=== PATIENT | female | born 1975 | race Caucasian/White ===

== ENCOUNTER → 2016-06-18 | Outpatient (CLI) | payer MEDICAID | LOC: LABWHC1 09:42 | PROVIDERS: ATTEND Internal Medicine Endocrinology, Diabetes & Metabolism | DX: R53.83 Other fatigue (principal); E55.9 Vitamin D deficiency, unspecified | CPT/HCPCS: 36415; 82306; 82607 ==

== ENCOUNTER → 2016-07-13 | Outpatient (CLI) | payer MEDICAID ==
--- NOTE | 2016-07-13 21:57 | PN ---
Bee is coming in for a follow-up regarding her obstructive sleep apnea. As mentioned earlier, the patient was diagnosed earlier having mild ARJUN with an AHI of 10.5. We opted not to treat the patient and we asked her to lose weight. She has successfully lost some weight and she is down by approximately 10 pounds. Nevertheless, despite that, she is still feeling tired and sleepy during the day and she is interested in trialing CPAP therapy should her symptoms related to obstructive sleep apnea. Temperature 98.5. Pulse is 82, respirations 16, body weight 217 with a body mass index of 37.2, saturation 97% on room air, and blood pressure 112/68. GENERAL APPEARANCE: Calm, comfortable. HEENT: Short neck, crowding posterior pharynx. There is no goiter, neck masses. LUNGS: Clear to auscultation. HEART: Sounds are regular rate and rhythm. Normal S1, S2. No S3, no S4 no murmurs. ABDOMEN: Soft, nontender. No organomegaly. EXTREMITIES: No cyanosis, or clubbing. IMPRESSION: 1. Mild obstructive sleep apnea with an AHI of 10.5. 2. Obesity. 3. Chronic fatigue and sleepiness. PLAN: 1. Encourage further weight loss. 2. CPAP titration and this will be followed up by trial of CPAP therapy and treatment will be continued if the patient sees significant clinical response.
== END | disposition home or self-care (01) ==
LOC: SLEEP 13:15
PROVIDERS: ATTEND Internal Medicine Critical Care Medicine
DX: G47.33 Obstructive sleep apnea (adult) (pediatric) (principal); E66.9 Obesity, unspecified; Z68.37 Body mass index [BMI] 37.0-37.9, adult

== ENCOUNTER → 2016-09-28 | Outpatient (CLI) | payer MEDICAID ==
--- NOTE | 2016-09-29 09:45 | SLS ---
41-year-old female patient diagnosed as having mild obstructive sleep apnea. Today she is coming in for a compliancy check. The patient has an AHF of 10.5. She was given CPAP therapy of 7 cm of water. She is benefiting from the treatment. Her sleep quality has improved and she is awake and much more alert , awake and refreshed during the day. She is not taking any naps during the day. Based on the compliance data, the patient has been averaging around 5.5 hours of sleep apnea per night. No leaks around the mask and her HI is down to 2.2. CPAP use for more than 4 hours is 29/30. She claims that later on during the night she is feeling that the pressure that is delivered to the CPAP machine is suboptimal and low and she is feeling a bit suffocated. She was requesting the pressure to be increased. BP is 107/63, pulse 84, respirations 16, temperature 97.9, weight is 209, saturation is 97% on room air. GENERAL APPEARANCE: Calm, comfortable. HEENT: Negative for JVD. No goiter, neck mass. LUNGS: Clear to auscultation. HEART: Heart sounds regular rate and rhythm. Normal S1/S2. There are no murmurs. ABDOMEN: Soft, nontender. No organomegaly. EXTREMITIES: No edema, cyanosis or clubbing. IMPRESSION: 1. Obstructive sleep apnea, symptomatic. The HI is 10.5. 2. Obesity. 3. Chronic fatigue and sleepiness, improved with CPAP therapy. PLAN: 1. Based on the low pressure feeling, I suggested to change this patient to an O2 sat CPAP with a maximum pressure of 10 and minimum pressure of 4. 2. Continue the small size ( ) pillows. 3. See me back in six months time for follow up. Treatment is successful for now. SYDNEE
== END ==
LOC: SLEEP 16:14
PROVIDERS: ATTEND Internal Medicine Critical Care Medicine
DX: G47.33 Obstructive sleep apnea (adult) (pediatric) (principal); E66.9 Obesity, unspecified; R53.82 Chronic fatigue, unspecified

== ENCOUNTER 2016-10-11 10:10 | Day surgery (SDC) | payer MEDICAID ==
[2016-10-07 14:21] VITALS: BMI 35.2
[~2016-10-11 10:10] MED LIST: LACTATED RINGERS 1,000 ML IV SCH; LIDOCAINE 1% 20 ML VIAL (10MG/ML) FOR IV START INTRADERMA PRN
[2016-10-11 10:50] VITALS: TEMP 98.4
[2016-10-11] MEDS ORDERED: LIDOCAINE 1% INJ 10MG/ML (20 ML MDV) ONE (11:19)
[2016-10-11] MEDS ORDERED: PROPOFOL 10 MG/ML 20 ML VIAL IV ONE (11:19)
--- NOTE | 2016-10-11 11:50 | P.PCN ---
Date of Procedure: 10/11/16 Preoperative Diagnosis: Postoperative Diagnosis: Procedure(s) Performed: Procedure: Total colonoscopy. Preoperative diagnosis: Screening for neoplasia, patient has family history of colon cancer in her father. Postoperative diagnosis: Exam within normal limits. Preparation: HalfLytely prep. Sedation: Was provided by anesthesia. Brief clinical history: The patient is a 41-year-old female who is referred for this evaluation for screening for neoplasia age being his risk factor as well as family history of colon cancer in her father. The patient has no abdominal complaints, bleeding or anemia. This would be her first colonoscopy. Procedure: With the patient on her left lateral decubitus position and after informed consent and adequate sedation, the perianal area was inspected and it did not show any fissures or fistulas. There were no masses felt on digital rectal examination. The Olympus CFQ 160L video colonoscope was then inserted in the rectum in the usual fashion and advanced to the cecum. The mucosa appeared healthy. No abnormalities were seen including any polyps or diverticular disease. I retroflexed the endoscope in the rectum before the endoscope was withdrawn. The patient tolerated the procedure well. Plan: The patient was reassured. With her family history, I recommended repeat exam in 5 years. She will follow up with you as planned. Implants: Indications for Procedure: Operative Findings: Description of Procedure:
[2016-10-11 12:10] VITALS: BP 111/67; PULSE 71; RESP 16
== END 2016-10-11 12:45 | disposition home or self-care (01) ==
LOC: ORWHC2ENDO 10:10
DX: Z12.11 Encounter for screening for malignant neoplasm of colon (principal); Z80.0 Family history of malignant neoplasm of digestive organs; J45.909 Unspecified asthma, uncomplicated; G47.33 Obstructive sleep apnea (adult) (pediatric); Z88.6 Allergy status to analgesic agent; Z88.1 Allergy status to other antibiotic agents; Z79.51 Long term (current) use of inhaled steroids; Z79.899 Other long term (current) drug therapy
CPT/HCPCS: J2001; J2704; G0105

== ENCOUNTER → 2017-03-04 | Outpatient (CLI) | payer MEDICAID ==
[2017-03-04 09:00] LABS: HGB 13.4 gm/dL (11.4-16.0); MCH 30.3 pg (25.0-35.0); MCHC 31.8 g/dL (31.0-37.0); MCV 95.2 fL (80.0-100.0); Mean Platelet Volume 7.9; Platelet Count 197 k/uL (150-450); RBC 4.42 m/uL (3.80-5.40); RDW 13.4 % (11.5-15.5); WBC 4.9 k/uL (3.8-10.6)
[2017-03-04 09:28] LABS: ALT 29 U/L (9-52); AST 20 U/L (14-36); Albumin 3.9 g/dL (3.5-5.0); Alkaline Phosphatase 65 U/L (38-126); Anion Gap 7 mmol/L; Blood Urea Nitrogen 18 mg/dL (7-17); Calcium 9.2 mg/dL (8.4-10.2); Carbon Dioxide 26 mmol/L (22-30); Chloride 107 mmol/L (98-107); Cholesterol 151 mg/dL (<200); Glucose 93 mg/dL (74-99); HDL Cholesterol 69 mg/dL (40-60); LDL Cholesterol,Calculated 70 mg/dL (0-99); Magnesium 2.1 mg/dL (1.6-2.3); Potassium 5.1 mmol/L (3.5-5.1); Sodium 140 mmol/L (137-145); Total Bilirubin 0.3 mg/dL (0.2-1.3); Total Protein 6.4 g/dL (6.3-8.2); Triglycerides 59 mg/dL (<150)
[2017-03-04 09:35] LABS: T4, Free (Free Thyroxine) 0.81 ng/dL (0.78-2.19)
[2017-03-05 12:49] LABS: HLA B27 NEGATIVE
== END | disposition home or self-care (01) ==
LOC: LABWHC1 08:17
PROVIDERS: ATTEND Family Medicine
DX: R53.83 Other fatigue (principal); R63.5 Abnormal weight gain
CPT/HCPCS: 36415; 80053; 80061; 83001; 83002; 83735; 84439; 84443; 85027; 86812

== ENCOUNTER → 2017-04-06 | Outpatient (CLI) | payer MEDICAID ==
--- NOTE | 2017-04-07 11:31 | ECHOF ---
Referral Reason:Dyspnea on exertion R06.09, Fatigue R53.83 MEASUREMENTS -------- HEIGHT: 162.6 cm WEIGHT: 98.9 kg BP: 133/80 RVIDd: 3.0 cm (< 3.3) IVSd: 0.9 cm (0.6 - 1.1) LVIDd: 4.8 cm (3.9 - 5.3) LVPWd: 0.9 cm (0.6 - 1.1) IVSs: 1.3 cm LVIDs: 3.0 cm LVPWs: 1.4 cm LAESV Index (A-L): 25.46 ml/m Ao Diam: 2.6 cm (2.0 - 3.7) AV Cusp: 1.6 cm (1.5 - 2.6) LA Diam: 3.4 cm (2.7 - 3.8) MV EXCURSION: 15.293 mm (> 18.000) MV EF SLOPE: 98 mm/s (70 - 150) EPSS: 0.4 cm MV E Juan Miguel: 1.06 m/s MV DecT: 217 ms MV A Juan Miguel: 0.79 m/s MV E/A Ratio: 1.33 AV maxP.16 mmHg AV meanP.43 mmHg RAP: 5.00 mmHg RVSP: 17.49 mmHg FINDINGS -------- Sinus rhythm. This was a technically good study. The left ventricular size is normal. Left ventricular wall thickness is normal. Overall left vent ricular systolic function is normal with, an EF between 55 - 60 %. The right ventricle is normal in size and function. Normal LA size by volume 22+/-6 ml/m2. The right atrium is normal in size. The aortic valve is trileaflet, and appears structurally normal. No aortic stenosis or regurgitation. The mitral valve is normal. There is trace to mild mitral regurgitation. Trace tricuspid regurgitation present. Right ventricular systolic pressure is normal at < 35 mmHg. There is no evidence of pulmonary hypertension. Trace/mild (physiologic) pulmonic regurgitation. The aortic root size is normal. Normal inferior vena cava with normal inspiratory collapse consistent with estimated right atrial pre ssure of 5 mmHg. There is no pericardial effusion. CONCLUSIONS -------- 1. Sinus rhythm. 2. This was a technically good study. 3. The left ventricular size is normal. 4. Left ventricular wall thickness is normal. 5. Overall left ventricular systolic function is normal with, an EF between 55 - 60 %. 6. Normal LA size by volume 22+/-6 ml/m2. 7. The aortic valve is trileaflet, and appears structurally normal. No aortic stenosis or regurgitati on. 8. There is trace to mild mitral regurgitation. 9. Trace tricuspid regurgitation present. 10. Right ventricular systolic pressure is normal at < 35 mmHg. 11. Trace/mild (physiologic) pulmonic regurgitation. 12. The aortic root size is normal. 13. There is no pericardial effusion. DIRECTOR OF STRATEGIC MARKETING: Raf Fuentes RDCS
== END | disposition home or self-care (01) ==
LOC: RADECHMAIN 14:56
PROVIDERS: ATTEND Family Medicine
DX: R06.09 Other forms of dyspnea (principal); R53.83 Other fatigue
CPT/HCPCS: 93306

== ENCOUNTER 2017-07-26 14:36 | Observation (INO) | payer MEDICAID ==
[2017-07-26] MEDS ORDERED: SODIUM CHLORIDE 0.9% 1,000 ML IV STA (15:23)
[2017-07-26] MEDS ORDERED: ONDANSETRON 4 MG/2 ML VIAL IVP STA (15:23)
[2017-07-26] MEDS ORDERED: MECLIZINE 12.5 MG TAB PO STA (15:24)
--- NOTE | 2017-07-26 15:27 | ED ---
Dizziness HPI - General Chief Complaint: Dizziness Stated Complaint: Dizzy Time Seen by Provider: 07/26/17 15:18 Source: patient, RN notes reviewed Mode of arrival: wheelchair Limitations: no limitations - History of Present Illness Initial Comments: This is a 42-year-old female with a prior history of vertigo in the past who states she had the onset around 1 PM today after eating lunch of dizziness was profound about an hour later she started developing nausea and vomiting. She's had several episodes of this. She states with any type of movement she gets very dizzy. She has a headache loss of function to her upper or lower extremities fevers chills sweats or other symptoms. She does state that she has had this in the past and that the Lissy maneuver help control of her she was so dizzy at this time she could not do it. No recent illnesses no other modifying factors at this time. She denied any palpitations MD Complaint: dizziness - Related Data Home Medications Medication Instructions Recorded Confirmed Citalopram Hydrobromide [CeleXA] 40 mg PO DAILY 10/07/16 07/26/17 Multivitamins, Thera [Multivitamin 1 tab PO DAILY 10/07/16 07/26/17 (formulary)] Ergocalciferol [Vitamin D2] 50,000 unit PO CASTILLO 07/26/17 07/26/17 Phentermine HCl [Adipex-P] 37.5 mg PO QAM 07/26/17 07/26/17 Allergies Allergy/AdvReac Type Severity Reaction Status Date / Time clarithromycin [From Biaxin] Allergy Anaphylaxis Verified 07/26/17 16:15 diphenhydramine Allergy Rash/Hives Verified 07/26/17 16:15 [From Tylenol PM] minocycline Allergy Rash/Hives Verified 07/26/17 16:15 Review of Systems ROS Statement: Those systems with pertinent positive or pertinent negative responses have been documented in the HPI. ROS Other: All systems not noted in ROS Statement are negative. Past Medical History Past Medical History: Asthma, Sleep Apnea/CPAP/BIPAP Additional Past Medical History / Comment(s): FAMILY HX COLON CA. USES CPAP, 4- 10. History of Any Multi-Drug Resistant Organisms: None Reported Past Surgical History: Section, Cholecystectomy, Hysterectomy, Orthopedic Surgery, Tubal Ligation Additional Past Surgical History / Comment(s): LASIK. EXC IMPACTED WISDOM TEETH. RT WRIST GANGLION CYST EXC. RODRIGUEZ KNEE SURG, LT WAS A SCOPE. skin biopsies, fibromas removed from leg and arm Past Anesthesia/Blood Transfusion Reactions: Previous Problems w/ Anesthesia, Family History of Problems w/ Anesthesia, Motion Sickness Additional Past Anesthesia/Blood Transfusion Reaction / Comment(s): "HARD TO AROUSE FROM ANESTHESIA;" FAMILY HX OF SAME. Past Psychological History: Anxiety Smoking Status: Never smoker Past Alcohol Use History: None Reported Past Drug Use History: None Reported - Past Family History Father Family Medical History: Cancer Mother Family Medical History: Cancer General Exam - General Exam Comments Initial Comments: This is a well-developed well-nourished awake alert oriented 3 female Limitations: no limitations General appearance: alert, anxious Head exam: Present: atraumatic, normocephalic, normal inspection Eye exam: Present: normal appearance, PERRL, EOMI. Absent: scleral icterus, conjunctival injection, periorbital swelling ENT exam: Present: normal exam, mucous membranes moist Neck exam: Present: normal inspection. Absent: tenderness, meningismus, lymphadenopathy Respiratory exam: Present: normal lung sounds bilaterally. Absent: respiratory distress, wheezes, rales, rhonchi, stridor Cardiovascular Exam: Present: regular rate, normal rhythm, normal heart sounds. Absent: systolic murmur, diastolic murmur, rubs, gallop, clicks GI/Abdominal exam: Present: soft, normal bowel sounds. Absent: distended, tenderness, guarding, rebound, rigid Extremities exam: Present: normal inspection, full ROM, normal capillary refill. Absent: tenderness, pedal edema, joint swelling, calf tenderness Back exam: Present: normal inspection Neurological exam: Present: alert, oriented X3, CN II-XII intact Psychiatric exam: Present: normal affect, normal mood Skin exam: Present: warm, dry, intact, normal color. Absent: rash Course Vital Signs 07/26/17 07/26/17 14:59 16:58 Temperature 97.5 F L Pulse Rate 79 74 Respiratory 18 18 Rate Blood Pressure 120/78 116/67 O2 Sat by Pulse 97 100 Oximetry - Reevaluation(s) Reevaluation #1: 07/26/17 17:51 The patient is so profoundly dizzy medication. Patient will get a different medication CAT scan has been ordered. Reevaluation #2: 07/26/17 18:45 The patient is a very dizzy in spite of medications. She'll be admitted with ENT consultation by her ENT doctor Dr. Monique EKG Findings - EKG Results: EKG: interpreted by KB, sinus rhythm (Sinus rhythm rate 72 IN interval 132 QRS duration 84 QT since QTC of 460/455 low-voltage noted no acute ST-T wave changes) Medical Decision Making - Medical Decision Making Patient presents with intractable nausea vomiting/vertigo she'll be admitted with ENT consultation I discuss case with Dr. Gtz - Lab Data Result diagrams: 07/26/17 15:45 07/26/17 15:45 Lab Results 07/26/17 07/26/17 Range/Units 15:45 15:45 WBC 8.2 (3.8-10.6) k/uL RBC 4.68 (3.80-5.40) m/uL Hgb 14.5 (11.4-16.0) gm/dL Hct 43.2 (34.0-46.0) % MCV 92.5 (80.0-100.0) fL MCH 31.0 (25.0-35.0) pg MCHC 33.5 (31.0-37.0) g/dL RDW 12.7 (11.5-15.5) % Plt Count 222 (150-450) k/uL Neutrophils % 78 % Lymphocytes % 14 % Monocytes % 4 % Eosinophils % 2 % Basophils % 0 % Neutrophils # 6.4 (1.3-7.7) k/uL Lymphocytes # 1.2 (1.0-4.8) k/uL Monocytes # 0.3 (0-1.0) k/uL Eosinophils # 0.2 (0-0.7) k/uL Basophils # 0.0 (0-0.2) k/uL Sodium 139 (137-145) mmol/L Potassium 4.3 (3.5-5.1) mmol/L Chloride 104 (98-107) mmol/L Carbon Dioxide 23 (22-30) mmol/L Anion Gap 12 mmol/L BUN 17 (7-17) mg/dL Creatinine 0.68 (0.52-1.04) mg/dL Est GFR (CKD-EPI)AfAm >90 (>60 ml/min/1.73 sqM) Est GFR (CKD-EPI)NonAf >90 (>60 ml/min/1.73 sqM) Glucose 126 H (74-99) mg/dL Calcium 9.2 (8.4-10.2) mg/dL Magnesium 2.0 (1.6-2.3) mg/dL Total Bilirubin 0.4 (0.2-1.3) mg/dL AST 25 (14-36) U/L ALT 28 (9-52) U/L Alkaline Phosphatase 60 (38-126) U/L Total Protein 6.7 (6.3-8.2) g/dL Albumin 4.1 (3.5-5.0) g/dL - Radiology Data Radiology results: report reviewed (I did review the imaging and reports no acute findings.), image reviewed Disposition Clinical Impression: Vertigo, Nausea & vomiting Disposition: ADMITTED IP TO THIS HOSP Condition: Stable Referrals: Kimberly Valladares MD [Primary Care Provider] - 1-2 days
[2017-07-26] MEDS: SODIUM CHLORIDE 0.9% 1,000 ML IV STA ×2 (15:44→19:36)
[2017-07-26 16:01] LABS: Basophils % (A) 0 %; Eosinophils # (A) 0.2 k/uL (0-0.7); Eosinophils % (A) 2 %; HCT 43.2 % (34.0-46.0); HGB 14.5 gm/dL (11.4-16.0); Lymphocytes # (A) 1.2 k/uL (1.0-4.8); Lymphocytes % (A) 14 %; MCHC 33.5 g/dL (31.0-37.0); MCV 92.5 fL (80.0-100.0); Mean Platelet Volume 7.4; Monocytes # (A) 0.3 k/uL (0-1.0); Monocytes % (A) 4 %; Neutrophils # (A) 6.4 k/uL (1.3-7.7); Neutrophils % (A) 78 %; Platelet Count 222 k/uL (150-450); RBC 4.68 m/uL (3.80-5.40); RDW 12.7 % (11.5-15.5); WBC 8.2 k/uL (3.8-10.6)
[2017-07-26 16:14] LABS: ALT 28 U/L (9-52); AST 25 U/L (14-36); Albumin 4.1 g/dL (3.5-5.0); Alkaline Phosphatase 60 U/L (38-126); Anion Gap 12 mmol/L; Blood Urea Nitrogen 17 mg/dL (7-17); Calcium 9.2 mg/dL (8.4-10.2); Carbon Dioxide 23 mmol/L (22-30); Chloride 104 mmol/L (98-107); Glucose 126 mg/dL (74-99); Potassium 4.3 mmol/L (3.5-5.1); Sodium 139 mmol/L (137-145); Total Bilirubin 0.4 mg/dL (0.2-1.3); Total Protein 6.7 g/dL (6.3-8.2)
[2017-07-26] MEDS ORDERED: methylPREDNISolone SOD SUCCI 125 MG/2 ML VIAL IV STA (17:20)
[2017-07-26] MEDS ORDERED: LORazepam 2 MG/ML INJ IV STA (17:20)
--- NOTE | 2017-07-26 17:52 | CT ---
EXAMINATION TYPE: CT brain wo con DATE OF EXAM: 07/26/2017 COMPARISON: NONE INDICATION: Dizziness today. DLP: 862.5 mGycm, Automated exposure control for dose reduction was used. CONTRAST: None CT of the brain is performed utilizing 3 mm thick sections through the posterior fossa and 3 mm thick sections through the remaining calvarium. Study is performed within 24 hours of arrival to the hosp [facility]. No abnormal hyperdensity is present to suggest an acute intracranial hemorrhage. No mass lesion is evident. No acute infarcts are evident. Ventricles and sulci are appropriate for the patient age. Paranasal sinuses and mastoid air cells within the [id number] are clear. Hyperostosis frontalis internus is present, normal variant. Note is made a left septal deviation. IMPRESSIONS: 1. No acute intracranial process.
[2017-07-26] MEDS ORDERED: NALOXONE 0.4 MG/ML 1 ML VIAL IV PRN (18:46)
[2017-07-26] MEDS ORDERED: ONDANSETRON 4 MG/2 ML VIAL IVP PRN (18:46)
[2017-07-26] MEDS ORDERED: DIAZEPAM 5 MG TAB PO PRN (19:13)
[2017-07-26] MEDS ORDERED: DIAZEPAM 5 MG TAB PO STA (19:13)
--- NOTE | 2017-07-26 19:54 | P.HPIM ---
History of Present Illness H&P Date: 07/26/17 Chief Complaint: Dizziness and nausea and vomiting The patient is a 42-year-old female with a past medical history of vertigo, moderate to severe hearing loss, hypovitaminosis D currently on supplementation who presents to the ER with complaint of severe dizziness and room spinning that began abruptly at approximately 1 PM, the patient also reports associated intractable nausea and vomiting with difficulty ambulating speak due to the severe dizziness, which she describes as room spinning which appears to be worse on the left versus the right. She denies any precipitating symptoms, she denies any headache, she reports blurry vision. The patient has a history of vertigo that flares up very sporadically may be twice a year. She denied any focal weakness slurred speech or facial droop, but has reported incidences with difficulty finding appropriate words. She denies any fall or head trauma or recent illnesses. She reports a history of moderate to severe hearing loss and was recently fitted for hearing aid in May of this year. She reported drawing labs earlier this morning from Dr. Gambino. In the ER she was given Ativan and started on meclizine, CT ordered of the head was negative for any acute intracranial abnormality. Her admission labs were largely normal and she was recommended for observation due to intractable nausea vomiting Review of Systems All other 12 point review of systems negative except per HPI Past Medical History Past Medical History: Asthma, Sleep Apnea/CPAP/BIPAP Additional Past Medical History / Comment(s): FAMILY HX COLON CA. USES CPAP, 4- 10. History of Any Multi-Drug Resistant Organisms: None Reported Past Surgical History: Section, Cholecystectomy, Hysterectomy, Orthopedic Surgery, Tubal Ligation Additional Past Surgical History / Comment(s): LASIK. EXC IMPACTED WISDOM TEETH. RT WRIST GANGLION CYST EXC. RODRIGUEZ KNEE SURG, LT WAS A SCOPE. skin biopsies, fibromas removed from leg and arm Past Anesthesia/Blood Transfusion Reactions: Previous Problems w/ Anesthesia, Family History of Problems w/ Anesthesia, Motion Sickness Additional Past Anesthesia/Blood Transfusion Reaction / Comment(s): "HARD TO AROUSE FROM ANESTHESIA;" FAMILY HX OF SAME. Past Psychological History: Anxiety Smoking Status: Never smoker Past Alcohol Use History: None Reported Past Drug Use History: None Reported - Past Family History Father Family Medical History: Cancer Mother Family Medical History: Cancer Medications and Allergies Home Medications Medication Instructions Recorded Confirmed Type Citalopram Hydrobromide [CeleXA] 40 mg PO DAILY 10/07/16 07/26/17 History Multivitamins, Thera [Multivitamin 1 tab PO DAILY 10/07/16 07/26/17 History (formulary)] Ergocalciferol [Vitamin D2] 50,000 unit PO CASTILLO 07/26/17 07/26/17 History Phentermine HCl [Adipex-P] 37.5 mg PO QAM 07/26/17 07/26/17 History Allergies Allergy/AdvReac Type Severity Reaction Status Date / Time clarithromycin [From Biaxin] Allergy Anaphylaxis Verified 07/26/17 16:15 diphenhydramine Allergy Rash/Hives Verified 07/26/17 16:15 [From Tylenol PM] minocycline Allergy Rash/Hives Verified 07/26/17 16:15 Physical Exam Vitals: Vital Signs Temp Pulse Resp BP Pulse Ox 07/26/17 18:59 97.8 F 83 18 112/65 99 07/26/17 16:58 74 18 116/67 100 07/26/17 14:59 97.5 F L 79 18 120/78 97 Intake and Output 07/26/17 07/26/17 07/26/17 06:59 14:59 22:59 Other: Weight 98.43 kg Constitutional: No acute distress, conversant, pleasant Eyes: Anicteric sclerae, moist conjunctiva, no lid-lag, PERRLA ENMT: NC/AT,Oropharynx clear, no erythema, exudates Neck:Supple, FROM, no masses, or JVD, No carotid bruits; No thyromegaly Lungs: Clear to auscultation, Clear to percussion, Normal respiratory effort, no accessory muscle use Cardiovascular: Heart regular in rate and rhythm, No murmurs, gallops, or rubs no peripheral edema Abdominal: Soft Nontender, nom distended, no guarding, no rebound or rigidity, Normoactive bowel sounds No hepatomegaly, No splenomegaly, No palpable mass No abdominal wall hernia noted Skin: Normal temperature, tone, texture, turgor, No induration No subcutaneous nodules, No rash, lesions, No ulcers Extremities:No digital cyanosis No clubbing, Pedal pulses intact and symmetrical Radial pulses intact and symmetrical Normal gait and station, No calf tenderness Psychiatric: Alert and oriented to person, place and time, Appropriate affect Intact judgement Neuro: Muscles Strength 5/5 in all 4 extremities, Sensation to light touch grossly present throughout, Cranial nerves II-XII grossly intact. No focal sensory deficits, positive tilt table test on the left, with horizontal nystagmus Results CBC & Chem 7: 07/26/17 15:45 07/26/17 15:45 Labs: Abnormal Lab Results - Last 24 Hours (Table) 07/26/17 Range/Units 15:45 Glucose 126 H (74-99) mg/dL Assessment and Plan Assessment: Chronic medical conditions Vitamin D deficiency Headaches Moderate to severe hearing loss (1) Intractable nausea and vomiting Current Visit: Yes Status: Acute Code(s): R11.2 - NAUSEA WITH VOMITING, UNSPECIFIED SNOMED Code(s): 707609129 (2) Vertigo Current Visit: Yes Status: Acute Code(s): R42 - DIZZINESS AND GIDDINESS SNOMED Code(s): 510610368 Plan: The patient is placed on observation, anticipate a less than 2 midnight stay with vertigo after presenting with intractable nausea vomiting. CT of the head was negative for any acute intracranial pathology, her electrolyte panel is only remarkable for hyperglycemia however the patient was not fasting, she has no history of diabetes. ENT was consulted and the patient was started on meclizine I will add diazepam and follow-up with any further recommendations by ENT. We'll initiate antiemetics for symptomatic management of her nausea as needed, Dr. Gtz will continue to follow her clinical course
[2017-07-26 19:56] VITALS: BMI 36.6
[2017-07-26 20:46] LABS: Appearance,Urine Clear (Clear); Bilirubin,Urine Negative (Negative); Blood,Urine Negative (Negative); Color,Urine Yellow; Glucose,Urine (UA) Negative (Negative); Ketones,Urine Trace (Negative); Leukocyte Esterase,Urine Negative (Negative); Nitrite,Urine Negative (Negative); PH, Urine 6.5 (5.0-8.0); Protein,Urine Negative (Negative); Specific Gravity,Urine 1.013 (1.001-1.035); Urobilinogen,Urine <2.0 mg/dL (<2.0)
[2017-07-27] MEDS ORDERED: MECLIZINE 25 MG TAB PO SCH
[2017-07-27] MEDS ORDERED: MECLIZINE 25 MG TAB PO PRN (08:20)
[2017-07-27] MEDS ORDERED: Phentermine Hcl [Adipex-P] 37.5 MG PO SCH (09:00)
[2017-07-27] MEDS ORDERED: CITALOPRAM HYDROBROMIDE 20 MG TAB PO SCH (09:00)
[2017-07-27 09:27] VITALS: RESP 16
--- NOTE | 2017-07-27 09:39 | P.PN ---
Progress Note - Text Progress Note Date: 07/27/17 Hope to D/C today. Patient will walk in the hallway. If able to tolerate and OK for discharge by ENT will discharge.
[2017-07-27 11:59] LABS: Hemoglobin A1C 5.3 % (4.0-6.0)
[2017-07-27] MEDS ORDERED: MULTIVITAMINS, THERA 1 EACH TAB PO SCH (12:00)
[2017-07-27 13:01] VITALS: BP 102/61; PULSE 72; TEMP 97.9
--- NOTE | 2017-07-27 14:45 | P.DS ---
Providers Date of admission: 07/26/17 18:46 Expected date of discharge: 07/27/17 Attending physician: Bigg Gtz MD Consults: 07/26/17 18:47 Consult Physician Routine Consulting Provider: David Monique Consult Reason/Comments: Intractable vertigo, nausea vomiting Do you want consulting provider notified?: Yes Primary care physician: Kimberly Valladares - Discharge Diagnosis(es) (1) Vertigo Status: Acute (2) Intractable nausea and vomiting Status: Acute (3) Hearing loss Status: Acute Hospital Course: Patient is a 42-year-old female with a past medical history of hearing loss, tinnitus, vitamin D deficiency, and morbid obesity who presented to the hospital with acute onset dizziness. Her vital signs are within normal limits on arrival. Initial laboratory analysis was essentially unremarkable. CT of the head showed no acute intercranial process. She was unable to ambulate without significant dizziness. He would she received IV fluids, Solu- Medrol, and Ativan in the ER without improvement in her symptoms. She was opted overnight due to intractable dizziness and nausea. The morning after admission her dizziness had significantly improved. She was able to ambulate in the hallways without difficulty. It was determined that she did not have significant risk factors for stroke to warrant an MRI evaluation at this point in time. ENT was consulted but recommended outpatient evaluation in the office. She was able to ambulate in hallways without difficulty and felt almost back to her normal self. She was feeling foggy on the day of discharge however this was felt to likely be secondary to her Valium and Ativan along with meclizine. She has a history of using phentermine is currently not taking this drug for approximately 3 months. She also has been on the same Celexa dose for the last approximately year. She was given a prescription for as needed meclizine and discharged home in stable condition. There was some concern for possible Mnire's disease with her history of sensorineural hearing loss and tinnitus and no additional episodes of vertigo. She has had vertigo in the past and use an Lissy maneuver to improve this however yesterday she was too dizzy to try the Lissy maneuver. I've asked her to discuss the possibility of Mnire's disease with Dr. Monique her ENT. She is unsure whether her hearing loss is low frequency or high frequency but states it is difficult to hear deeper voices. Prescription for meclizine was sent to [facility] in [place]. She will also follow-up with Dr. Mcdermott. Patient seen and examined at bedside. Dizziness is resolved. No additional nausea. Feeling slightly foggy and having a slight headache. No other complaints currently. Able to ambulate without difficulty. May return to work when feels back to baseline. Vital signs reviewed and stable. General: non toxic, no distress, appears at stated age Derm: warm, dry Head: atraumatic, normocephalic, symmetric Eyes: EOMI, no lid lag, anicteric sclera Mouth: no lip lesion, mucus membranes moist Cardiovascular: S1S2 reg, no murmur, positive posterior tibial pulse bilateral, Lungs: CTA bilateral, no rhonchi, no rales , no accessory muscle use Abdominal: soft, nontender to palpation, no guarding, no appreciable organomegaly Ext: no gross muscle atrophy, no edema, no contractures Neuro: CN II-XI grossly intact, no focal neuro deficits Psych: Alert, oriented, appropriate affect A total of 25 minutes of time were spent preparing this complex discharge summary . Pertinent Studies: CT head- no acute intracranial process Patient Condition at Discharge: Stable Plan - Discharge Summary New Discharge Prescriptions: New Meclizine [Antivert] 25 mg PO Q8HR PRN #15 tab PRN Reason: Vertigo Continue Citalopram Hydrobromide [CeleXA] 40 mg PO DAILY Multivitamins, Thera [Multivitamin (formulary)] 1 tab PO DAILY Changed Ergocalciferol [Vitamin D2 (DRISDOL)] 10,000 unit PO CASTILLO #0 Discontinued Phentermine HCl [Adipex-P] 37.5 mg PO QAM Discharge Medication List Citalopram Hydrobromide [CeleXA] 40 mg PO DAILY 10/07/16 [History] Multivitamins, Thera [Multivitamin (formulary)] 1 tab PO DAILY 10/07/16 [History ] Ergocalciferol [Vitamin D2 (DRISDOL)] 10,000 unit PO CASTILLO #0 07/27/17 [Rx] Meclizine [Antivert] 25 mg PO Q8HR PRN #15 tab 07/27/17 [Rx] Follow up Appointment(s)/Referral(s): Kimberly Valladares MD [Primary Care Provider] - 1-2 days David Monique MD [STAFF PHYSICIAN] - 3 Days Patient Instructions/Handouts: Vertigo (DC) Activity/Diet/Wound Care/Special Instructions: No driving until dizziness resolved. Please call Dr. Monique tomorrow to schedule appointment. Discharge Disposition: HOME SELF-CARE
== END 2017-07-27 14:59 | disposition home or self-care (01) ==
LOC: EC 14:36 → 6PED 18:46
PROVIDERS: ADMIT Internal Medicine; ATTEND Internal Medicine
DX: R42 Dizziness and giddiness (principal); R11.2 Nausea with vomiting, unspecified; R51 Headache; J45.909 Unspecified asthma, uncomplicated; G47.30 Sleep apnea, unspecified; Z99.89 Dependence on other enabling machines and devices; F41.9 Anxiety disorder, unspecified; E55.9 Vitamin D deficiency, unspecified; E66.01 Morbid (severe) obesity due to excess calories; R73.9 Hyperglycemia, unspecified; H90.5 Unspecified sensorineural hearing loss; Z68.36 Body mass index [BMI] 36.0-36.9, adult; H93.19 Tinnitus, unspecified ear; Z79.899 Other long term (current) drug therapy; Z88.1 Allergy status to other antibiotic agents; Z88.8 Allergy status to other drugs, medicaments and biological substances; Z90.710 Acquired absence of both cervix and uterus; Z90.49 Acquired absence of other specified parts of digestive tract; Z80.0 Family history of malignant neoplasm of digestive organs
CPT/HCPCS: 99285 ×2; 96374 ×2; 96375 ×3; 96361 ×3; 36415; 93005; 80053; 83735; 85025; 81003; 83036; 70450; G0378 ×2; J2060; J2930; J2405

== ENCOUNTER → 2017-07-26 | Outpatient (CLI) | payer MEDICAID ==
[2017-07-26 17:30] LABS: Vitamin D 25 Hydroxy 26.8 ng/mL (30.0-100.0)
== END | disposition home or self-care (01) ==
LOC: LABWHC1 08:37
PROVIDERS: ATTEND Internal Medicine Endocrinology, Diabetes & Metabolism
DX: E53.8 Deficiency of other specified B group vitamins (principal); E55.9 Vitamin D deficiency, unspecified; R53.83 Other fatigue
CPT/HCPCS: 36415; 82306; 82607; 84443

== ENCOUNTER 2017-08-15 02:38 | Emergency (ER) | payer MEDICAID ==
[2017-08-15 02:51] VITALS: TEMP 97.2
[2017-08-15] MEDS ORDERED: DIAZEPAM 2 MG TAB PO STA (03:03)
[2017-08-15] MEDS ORDERED: ONDANSETRON 4 MG/2 ML VIAL IVP STA (03:05)
--- NOTE | 2017-08-15 03:17 | ED ---
Dizziness HPI - General Chief Complaint: Dizziness Stated Complaint: Vertigo Time Seen by Provider: 08/15/17 02:39 Source: patient, RN notes reviewed Mode of arrival: EMS Limitations: no limitations - History of Present Illness Initial Comments: This is a 42-year-old female who presents to the emergency department with chief complaint of vertigo. Patient was recently diagnosed with vertigo. She has been taking meclizine at home. She states she is scheduled for further testing this coming Tuesday. Patient states that tonight at approximately midnight she felt the vertigo coming on. She states that she has taken 50 mg of meclizine. She states that she developed some left arm pain. Patient reports that the pain is reproducible and increases when she moves her arm. Denies any specific injuries or trauma. Denies chest pain or shortness of breath. Denies fevers or chills, abdominal pain, diarrhea or constipation, headache, numbness or tingling, weakness. She does state that she has had one episode of vomiting and currently feels nauseous. She denies any other past medical history. States that she takes Celexa and vitamin B and D supplementation. Denies any history of early cardiac disease in her family. - Related Data Home Medications Medication Instructions Recorded Confirmed Citalopram Hydrobromide [CeleXA] 40 mg PO DAILY 10/07/16 07/26/17 Multivitamins, Thera [Multivitamin 1 tab PO DAILY 10/07/16 07/26/17 (formulary)] Previous Rx's Medication Instructions Recorded Ergocalciferol [Vitamin D2 10,000 unit PO CASTILLO #0 07/27/17 (DRISDOL)] Meclizine [Antivert] 25 mg PO Q8HR PRN #15 tab 07/27/17 Allergies Allergy/AdvReac Type Severity Reaction Status Date / Time clarithromycin [From Biaxin] Allergy Anaphylaxis Verified 07/26/17 16:15 diphenhydramine Allergy Rash/Hives Verified 07/26/17 16:15 [From Tylenol PM] minocycline Allergy Rash/Hives Verified 07/26/17 16:15 Review of Systems ROS Statement: Those systems with pertinent positive or pertinent negative responses have been documented in the HPI. ROS Other: All systems not noted in ROS Statement are negative. Past Medical History Past Medical History: Asthma, Sleep Apnea/CPAP/BIPAP Additional Past Medical History / Comment(s): FAMILY HX COLON CA. USES CPAP, 4- 10. vertigo History of Any Multi-Drug Resistant Organisms: None Reported Past Surgical History: Section, Cholecystectomy, Hysterectomy, Orthopedic Surgery, Tubal Ligation Additional Past Surgical History / Comment(s): LASIK. EXC IMPACTED WISDOM TEETH. RT WRIST GANGLION CYST EXC. RODRIGUEZ KNEE SURG, LT WAS A SCOPE. skin biopsies, fibromas removed from leg and arm Past Anesthesia/Blood Transfusion Reactions: Previous Problems w/ Anesthesia, Family History of Problems w/ Anesthesia, Motion Sickness Additional Past Anesthesia/Blood Transfusion Reaction / Comment(s): "HARD TO AROUSE FROM ANESTHESIA;" FAMILY HX OF SAME. Past Psychological History: Anxiety Smoking Status: Never smoker Past Alcohol Use History: None Reported Past Drug Use History: None Reported - Past Family History Father Family Medical History: Cancer Mother Family Medical History: Cancer General Exam - General Exam Comments Initial Comments: General: Awake and alert, well-developed; in no apparent distress. The patient sitting comfortably on ED stretcher with eyes closed. HEENT: Head atraumatic, normocephalic. Pupils are equal, round and reactive to light. Extraocular movements intact. Oropharynx moist without erythema or exudate. Neck: Supple. Normal ROM. Cardiovascular: Regular rate and rhythm. No murmurs, rubs or gallops. Chest symmetrical. Respiratory: Lungs clear to auscultation bilaterally. No wheezes, rales or rhonchi. Normal respiratory effort with no use of accessory muscles. Musculoskeletal: Normal range of motion, strength 5/5 bilateral upper and lower extremities. There is tenderness on palpation of proximal left shoulder. Pain is elicited with flexion of the left shoulder. No obvious gross deformities. Sensation is intact. Radial pulses are 2+ equal and palpable bilaterally. Skin: [place], warm and dry without rashes or lesions. Neurological: Alert and oriented x3. CN II-XII grossly intact. Speech is fluent and answers are appropriate. No focal neuro deficits. Psychiatric: Normal mood and affect. No overt signs of depression or anxiety noted. Limitations: no limitations Course Vital Signs 08/15/17 08/15/17 08/15/17 02:46 03:43 05:37 Temperature 97.2 F L Pulse Rate 65 65 78 Respiratory 18 16 16 Rate Blood Pressure 154/79 111/67 113/68 O2 Sat by Pulse 99 95 95 Oximetry Medical Decision Making - Medical Decision Making This is a 42-year-old female with history of vertigo who presents to the emergency department with chief complaint of intractable vertigo. Patient developed an episode of vertigo at midnight this evening. She started taking 50 mg of meclizine with minimal relief. She admits to one episode of vomiting. She also reports left shoulder pain. Pain is reproducible and increases with movement of the left arm. Denies chest pain, shortness of breath, diaphoresis. Denies any past medical history or cardiac history. Patient has no risk factors for cardiac disease. She is a nonsmoker, nondrinker. Does not have hypertension or high cholesterol. No family history of early onset cardiac disease. EKG revealed normal sinus rhythm. Patient given Valium and Zofran. No longer complains of nausea. This case was discussed with attending physician, Dr. Yoon and is signed out to him at this time. - EKG Data EKG Comments: 2:47:40. Normal sinus rhythm with sinus arrhythmia. Ventricular rate 68 bpm, MD interval 132, QRS duration 98, QT/QTC 414/440 Disposition Clinical Impression: Vertigo Disposition: HOME SELF-CARE Condition: Good Instructions: Vertigo (ED) Additional Instructions: Please follow up with primary care provider within 1-2 days. Return to emergency department if symptoms should worsen or any concerns arise. Is patient prescribed a controlled substance at d/c from ED?: No Referrals: Kimberly Valladares MD [Primary Care Provider] - 1-2 days
[2017-08-15 03:44] VITALS: RESP 16
[2017-08-15 05:39] VITALS: BP 113/68; PULSE 78
== END 2017-08-15 05:37 | disposition home or self-care (01) ==
LOC: EC 02:38
DX: R42 Dizziness and giddiness (principal); I49.8 Other specified cardiac arrhythmias; M25.512 Pain in left shoulder; R11.0 Nausea; G47.30 Sleep apnea, unspecified; Z79.899 Other long term (current) drug therapy; Z88.1 Allergy status to other antibiotic agents; Z88.8 Allergy status to other drugs, medicaments and biological substances; Z99.89 Dependence on other enabling machines and devices
CPT/HCPCS: 93005; 99284; 96374; J2405

== ENCOUNTER → 2017-08-17 | Outpatient (CLI) | payer MEDICAID | LOC: NEUROMAIN 06:38 | PROVIDERS: ATTEND Otolaryngology | DX: R42 Dizziness and giddiness (principal) | CPT/HCPCS: 92537; 92540 ==

== ENCOUNTER → 2017-09-15 | Outpatient (CLI) | payer MEDICAID ==
--- NOTE | 2017-09-15 11:40 | US ---
EXAMINATION TYPE: US venous doppler duplex LE LT DATE OF EXAM: 09/15/2017 10:36 AM COMPARISON: NONE CLINICAL HISTORY: R22.42 SWELLING OF LT LOWER LIMB. Swelling of left lower limb, no pain. Not on blo od thinners. SIDE PERFORMED: Left TECHNIQUE: The lower extremity deep venous system is examined utilizing real time linear array sonog bernice with graded compression, doppler sonography and color-flow sonography. VESSELS IMAGED: External Iliac Vein (EIV) Common Femoral Vein Deep Femoral Vein Greater Saphenous Vein * Femoral Vein Popliteal Vein Small Saphenous Vein * Proximal Calf Veins (* superficial vessels) Slow rouleaux flow seen. Needed to augment to obtain wall to wall color flow. Veins were easily compressible. Left Leg: Negative for DVT IMPRESSION: No definite evidence for DVT at this time.
== END | disposition home or self-care (01) ==
LOC: RADUSWWP 09:37
PROVIDERS: ATTEND Family Medicine
DX: R22.42 Localized swelling, mass and lump, left lower limb (principal)

== ENCOUNTER → 2017-09-26 | Outpatient (CLI) | payer MEDICAID ==
--- NOTE | 2017-09-26 12:05 | US ---
EXAMINATION TYPE: US kidneys/renal and bladder DATE OF EXAM: 09/26/2017 COMPARISON: NONE CLINICAL HISTORY: R31.9 HEMATURIA. Hematuria for 2 weeks. Bilateral flank pain. Pelvic pain EXAM MEASUREMENTS: Right Kidney: 9.5 x 4.8 x 4.7 cm Left Kidney: 9.8 x 4.4 x 4.5cm Right Kidney: mild to moderate hydronephrosis Left Kidney: mild hydronephrosis Bladder: wnl as visualized Bilateral Jets seen: no Incidental finding: cystic areas within liver, largest = 2.2cm Multiple mass-like areas noted within pelvis, patient states history of partial hysterectomy (uter us) Cortical medullary differentiation is maintained. IMPRESSION: Bilateral hydronephrosis. Soft tissue masses are present within the pelvis. Recommend CT scan abdomen and pelvis with contrast. Additional findings above. Report relayed to Dr. Martinez telephonically at the time of interpretation.
== END | disposition home or self-care (01) ==
LOC: RADUSWWP 10:03
PROVIDERS: ATTEND Family Medicine
DX: N13.30 Unspecified hydronephrosis (principal); R19.00 Intra-abdominal and pelvic swelling, mass and lump, unspecified site; Q44.6 Cystic disease of liver; Z90.711 Acquired absence of uterus with remaining cervical stump
CPT/HCPCS: 76770

== ENCOUNTER → 2017-09-27 | Outpatient (CLI) | payer MEDICAID ==
--- NOTE | 2017-09-28 00:05 | CT ---
EXAMINATION TYPE: CT abdomen pelvis w con DATE OF EXAM: 09/27/2017 HISTORY: Hematuria, Left sided flank and pelvic pain/pressure and recent Abnormal US CT DLP: 1582mGycm Automated Exposure Control for Dose Reduction was Utilized. CONTRAST: CT scan of the abdomen and pelvis is performed with IV Contrast, patient injected with 100 mL of Isov ue 300. COMPARISON: Renal ultrasound from yesterday. FINDINGS: LUNG BASES: No significant abnormality is appreciated. LIVER/GB: Cholecystectomy clips are present. A few scattered simple-appearing thin-walled cysts are s een throughout the liver. Liver is low dense relative to spleen suggesting fatty infiltration. PANCREAS: No significant abnormality is seen. SPLEEN: No significant abnormality is seen. ADRENALS: No significant abnormality is seen. KIDNEYS: There is symmetric cortical medullary uptake and excretion from both kidneys. There no renal calculi or suspicious solid or cystic renal masses. There is mild to minimal fullness of left renal pelvis and calyces. There is more moderate right-sided pyelocaliectasis. Bladder shows no intralumina l calculi or suspicious wall thickening. Abnormal shape is due to multiple pelvic masses. BOWEL: Oral contrast reaches the level of proximal transverse colon. There is no suspicious small or large bowel dilatation. Normal-appearing appendix is seen from the base of cecum. Moderate fecal mate rial is somewhat prominent in the right and transverse colon. UTERUS/ADNEXA: Normal-appearing uterus is not identified. There are heterogeneous hyperdense masses s cattered throughout the bilateral pelvis and in the retroperitoneum of the mid to lower abdomen just below level of the third portion of duodenum. Significant mass effect is seen including likely findin gs of right greater than left hydronephrosis. Normal-appearing ovaries are not identified. For refere nce right pelvic lesion measures 11.7 x 6.5 cm axial image 73. LYMPH NODES: No greater than 1cm abdominal or pelvic lymph nodes are appreciated. OSSEOUS STRUCTURES: No significant abnormality is seen. OTHER: No significant additional abnormality is seen. IMPRESSION: Correlating with ultrasound there is moderate right-sided hydronephrosis and mild to mini mal left-sided hydronephrosis secondary to lower abdominal retroperitoneal and pelvic heterogeneous h yperdense masses causing mass effect on course of ureters. Differential would include benign etiologi es such as spread of endometriosis or fibroids however malignant etiologies such as hypervascular met astatic disease needs to be excluded.
== END | disposition home or self-care (01) ==
LOC: RADCTMAIN 16:34
PROVIDERS: ATTEND Family Medicine
DX: N13.2 Hydronephrosis with renal and ureteral calculous obstruction (principal); R19.07 Generalized intra-abdominal and pelvic swelling, mass and lump
CPT/HCPCS: 74177; Q9967

== ENCOUNTER → 2017-09-28 | Outpatient (CLI) | payer MEDICAID ==
[2017-09-28 14:50] LABS: ALT 27 U/L (9-52); AST 22 U/L (14-36); Albumin 3.9 g/dL (3.5-5.0); Alkaline Phosphatase 56 U/L (38-126); Anion Gap 6 mmol/L; Blood Urea Nitrogen 14 mg/dL (7-17); Calcium 9.4 mg/dL (8.4-10.2); Carbon Dioxide 25 mmol/L (22-30); Chloride 109 mmol/L (98-107); Glucose 113 mg/dL (74-99); Potassium 3.9 mmol/L (3.5-5.1); Sodium 140 mmol/L (137-145); Total Bilirubin 0.3 mg/dL (0.2-1.3); Total Protein 6.4 g/dL (6.3-8.2)
== END | disposition home or self-care (01) ==
LOC: LABWHC1 13:45
PROVIDERS: ATTEND Family Medicine
DX: N83.9 Noninflammatory disorder of ovary, fallopian tube and broad ligament, unspecified (principal)
CPT/HCPCS: 36415; 80053; 86304

== ENCOUNTER → 2017-11-14 | Outpatient (CLI) | payer MEDICAID ==
[2017-11-14 09:40] LABS: Anion Gap 6 mmol/L; Blood Urea Nitrogen 15 mg/dL (7-17); Calcium 9.3 mg/dL (8.4-10.2); Carbon Dioxide 25 mmol/L (22-30); Chloride 110 mmol/L (98-107); Glucose 81 mg/dL (74-99); Potassium 4.7 mmol/L (3.5-5.1); Sodium 141 mmol/L (137-145)
[2017-11-14 10:24] LABS: Basophils % (A) 1 %; Eosinophils # (A) 0.3 k/uL (0-0.7); Eosinophils % (A) 6 %; HCT 43.3 % (34.0-46.0); HGB 14.1 gm/dL (11.4-16.0); Lymphocytes # (A) 1.3 k/uL (1.0-4.8); Lymphocytes % (A) 29 %; MCH 30.6 pg (25.0-35.0); MCHC 32.6 g/dL (31.0-37.0); MCV 93.9 fL (80.0-100.0); Mean Platelet Volume 7.7; Monocytes # (A) 0.2 k/uL (0-1.0); Monocytes % (A) 5 %; Neutrophils # (A) 2.6 k/uL (1.3-7.7); Neutrophils % (A) 57 %; Platelet Count 170 k/uL (150-450); RBC 4.61 m/uL (3.80-5.40); RDW 12.4 % (11.5-15.5); WBC 4.6 k/uL (3.8-10.6)
== END ==
LOC: LABPAT 08:13
PROVIDERS: ATTEND Urology
DX: Z01.812 Encounter for preprocedural laboratory examination (principal); N13.30 Unspecified hydronephrosis; R31.0 Gross hematuria; Z79.899 Other long term (current) drug therapy
CPT/HCPCS: 36415; 80048; 85025

== ENCOUNTER 2017-11-16 08:01 | Day surgery (SDC) | payer MEDICAID ==
[2017-11-15 10:15] VITALS: BMI 38.2
--- NOTE | 2017-11-15 21:08 | P.GSHP ---
History of Present Illness H&P Date: 11/15/17 42 yo female wwith multiple large retroperitoneal fibroids creating bilateral hydronephrosis The treeatment of these will bewith lupron injections IN time hopefully they will shrink so that the hydro nephrosis will disappear, In the meanwhile she will have bilateral double j catheters to protect her kidneys the risks and complication have been outlined - Constitutional Constitutional: Denies chills, Denies fever - EENT Eyes: denies blurred vision, denies pain Ears, nose, mouth and throat: Denies headache, Denies sore throat - Cardiovascular Cardiovascular: Denies chest pain, Denies shortness of breath - Respiratory Respiratory: Denies cough, Denies 7 - Gastrointestinal Gastrointestinal: Denies abdominal pain, Denies diarrhea, Denies nausea, Denies vomiting - Genitourinary (Female) Genitourinary: Denies dysuria, Denies hematuria - Genitourinary (Male) Genitourinary: Denies dysuria, Denies hematuria - Musculoskeletal Musculoskeletal: Denies myalgias - Integumentary Integumentary: Denies pruritus, Denies rash - Neurological Neurological: Denies numbness, Denies weakness - Psychiatric Psychiatric: Denies anxiety, Denies depression - Endocrine Endocrine: Denies fatigue, Denies weight change Past Medical History Past Medical History: Asthma, Sleep Apnea/CPAP/BIPAP Additional Past Medical History / Comment(s): FAMILY HX COLON CA. USES CPAP. vertigo, received 1 time dose of lupron oct 2017 History of Any Multi-Drug Resistant Organisms: None Reported Past Surgical History: Section, Cholecystectomy, Hysterectomy, Orthopedic Surgery, Tubal Ligation Additional Past Surgical History / Comment(s): LASIK. EXC IMPACTED WISDOM TEETH. RT WRIST GANGLION CYST EXC. RODRIGUEZ KNEE SURG, LT WAS A SCOPE. skin biopsies, fibromas removed from leg and arm, cyst removed from back Past Anesthesia/Blood Transfusion Reactions: Previous Problems w/ Anesthesia, Family History of Problems w/ Anesthesia, Motion Sickness Additional Past Anesthesia/Blood Transfusion Reaction / Comment(s): "HARD TO AROUSE FROM ANESTHESIA;" FAMILY HX OF SAME, trouble breathing with biopsy was placed in seated position to help with breathing Smoking Status: Never smoker - Past Family History Father Family Medical History: Cancer Additional Family Medical History / Comment(s): colon cancer,squamous skin cancer , liver cancer Mother Family Medical History: Cancer Additional Family Medical History / Comment(s): basal cell skin cancer Medications and Allergies Home Medications Medication Instructions Recorded Confirmed Type Citalopram Hydrobromide [CeleXA] 40 mg PO DAILY 10/07/16 11/15/17 History Multivitamins, Thera [Multivitamin 1 tab PO DAILY 10/07/16 11/15/17 History (formulary)] Meclizine [Antivert] 25 mg PO Q8HR PRN #15 tab 07/27/17 11/15/17 Rx Albuterol Inhaler [Ventolin Hfa 1 - 2 puff INHALATION RT-Q6H PRN 11/15/17 History Inhaler] Cholecalciferol (Vitamin D3) 10,000 unit PO DAILY 11/15/17 11/15/17 History [Vitamin D3] Cyanocobalamin (Vitamin B-12) 1,500 mcg PO DAILY 11/15/17 11/15/17 History [Vitamin B-12] Allergies Allergy/AdvReac Type Severity Reaction Status Date / Time clarithromycin [From Biaxin] Allergy Anaphylaxis Verified 11/15/17 10:04 diphenhydramine Allergy Rash/Hives Verified 11/15/17 10:04 [From Tylenol PM] minocycline Allergy Rash/Hives Verified 11/15/17 10:04 Surgical - Exam - General well developed, well nourished, no distress - Eyes PERRL - ENT no hearing loss - Neck trachea midline, no lymphadectomy - Respiratory normal expansion, normal respiratory effort - Cardiovascular Rhythm: regular - Abdomen Abdomen: soft, non tender - Integumentary no rash, no growths - Musculoskeletal normal gait, normal posture - Psychiatric oriented to time, oriented to person, oriented to place, speech is normal, memory intact Results - Imaging CT scan - abdomen: report reviewed, image reviewed CT scan - pelvis: report reviewed, image reviewed Assessment and Plan Assessment: Impression: Bilateral obstructing retroperitoneal fibroids causing bilateral hydronephrosis. Recommend: Cysto with bilateral retrograde pyelograms and bilateral double j catheters.
[~2017-11-16 08:01] MED LIST changes: +ceFAZolin 1,000 MG in DEXTROSE/WATER 1 50ML.BAG IV ONE
--- NOTE | 2017-11-16 08:30 | XR ---
Abdomen HISTORY: Bilateral hydronephrosis Frontal view of the abdomen submitted on [address] abdomen pelvis 09/27/2017 Surgical clips are present in the right upper quadrant. There is no evident pneumoperitoneum or bowel obstruction. Lung bases are clear. No evident pathologic calcification. Abdominal masses seen on CT are not evident on plain film. IMPRESSION: Nonobstructive bowel gas pattern.
[2017-11-16] MEDS ORDERED: ONDANSETRON 4 MG/2 ML VIAL ONE (08:43)
[2017-11-16] MEDS ORDERED: HYDROmorphone (PF) 1 MG/ML ONE (09:41)
[2017-11-16] MEDS ORDERED: PROPOFOL 10 MG/ML 20 ML VIAL IV ONE (09:41)
[2017-11-16] MEDS ORDERED: SUCCINYLCHOLINE CHLORIDE 100 MG/5 ML SYR IV ONE (09:41)
[2017-11-16] MEDS ORDERED: MIDAZOLAM 2 MG/2 ML VIAL ONE (09:41)
[2017-11-16] MEDS ORDERED: LIDOCAINE 1% INJ 10MG/ML (20 ML MDV) ONE (09:41)
[2017-11-16] MEDS ORDERED: fentaNYL (PF) 50 MCG/ML 2 ML AMP ONE (09:41)
[2017-11-16] MEDS ORDERED: IOPAMIDOL-370 50ML BTL IRRIGATION ONE (10:04)
--- NOTE | 2017-11-16 10:26 | P.OP ---
Date of Procedure: 11/16/17 Preoperative Diagnosis: Bilateral hydronephrosis secondary to retroperitoneal fibroids Postoperative Diagnosis: Same Procedure(s) Performed: Cystoscopy, bilateral retrograde pyelograms, placement of bilateral double-J catheters, 6 x 24 Anesthesia: CATRACHITO Surgeon: Toby Russell Pathology: none sent Condition: stable Disposition: PACU Indications for Procedure: The patient is 42. She is found to have a retroperitoneal masses that were diagnosed as Murphy. He'll fibroids. There are 2 complicated to be removed surgically. In light of that she will undergo Lupron therapy to reduce the size of the masses. The masses of cause retroperitoneal obstruction of the ureters causing bilateral hydronephrosis right greater than left. She comes for stent placement Description of Procedure: The patient is brought to the operating suite. She given a successful general endotracheal anesthesia. She's placed lithotomy position with a sterile prep and drape. Cystoscopy Foroblique lens and 23-[place] sheath identifies a normal urethra. The bladder is inspected. There is a distinct enlargement of the uterus position on the posterior bladder wall are currently on the left. It distorts the left ureteral orifice. The bladder mucosa is unremarkable. Within a cone-tipped catheter a retrograde pyelogram on the left is performed. The ureter shows some significant tortuosity. There is not a lot of hydronephrosis noted. I then do a retrograde pyelogram on the right. There is also marked medial deviation of the lower ureter. And then there is an abrupt cut off near the iliac vessels consistent with a significant obstruction from the retroperitoneal fibroid. 035 wires passed up each ureter. Over the wires 6 x 24 double-J catheters are passed such that they coil in the renal pelvis and the bladder the bladder strain the patient's awake and returned recovery room good condition Impression successful placement of bilateral double-J catheters revealed hydronephrosis while hopefully either fibroids or reducing with the Lupron therapy. The patient will be discharged home upon recovery. She'll follow in the office in one week. Most likely we will either exchange remove these within 3 months depending on how she responds of the Lupron therapy.
[2017-11-16 10:34] VITALS: TEMP 97.7
[2017-11-16] MEDS: HYDROmorphone 0.5 MG/0.5 ML SYRINGE IVP PRN ×2 (10:38→10:47)
[2017-11-16 11:29] VITALS: RESP 16
--- NOTE | 2017-11-16 13:02 | FL ---
EXAMINATION TYPE: FL urography retrograde DATE OF EXAM: 11/16/2017 FLUOROSCOPY Fluoroscopy time of 1 minute 39 seconds was used during cystoscopy in bilateral ureteral injections. 7 image/s document/s the procedure.
[2017-11-16 13:55] VITALS: BP 105/71; PULSE 76
== END 2017-11-16 14:18 | disposition home or self-care (01) ==
LOC: OR 08:01
PROVIDERS: ATTEND Urology
DX: N13.1 Hydronephrosis with ureteral stricture, not elsewhere classified (principal); J45.909 Unspecified asthma, uncomplicated; G47.30 Sleep apnea, unspecified; Z99.89 Dependence on other enabling machines and devices; Z80.0 Family history of malignant neoplasm of digestive organs; R42 Dizziness and giddiness; Z79.899 Other long term (current) drug therapy; Z88.6 Allergy status to analgesic agent; Z88.1 Allergy status to other antibiotic agents
CPT/HCPCS: 74018; 74420

== ENCOUNTER → 2017-11-25 | Outpatient (CLI) | payer MEDICAID ==
--- NOTE | 2017-11-25 11:40 | XR ---
EXAMINATION TYPE: XR KUB DATE OF EXAM: 11/25/2017 11:29 AM CLINICAL HISTORY: Left-sided renal pain. Bilateral ureteral stent evaluation. TECHNIQUE: Single supine KUB image of the abdomen is obtained. COMPARISON: 11/16/2017. FINDINGS: There is been interval placement of bilateral ureteral stents. The right double-J ureteral stent is coiled in the region of the renal pelvis and urinary bladder. The left double-J ureteral reji nt has its distal portion coiled in the region of the urinary bladder and its proximal portion uncoil ed in the region of the left renal pelvis. No calculi are seen along the courses of the ureteral sten ts. Moderate colonic stool burden is seen within the right hemicolon. Partial visualization of cholec ystectomy clips. Osseous structures are grossly intact. IMPRESSION: 1. Proximal aspect of the left double-J ureteral stent is uncoiled and the region of the left renal p frantz. No calcifications along the courses of the ureteral stents. 2. Moderate degree colonic stool burden within the right visualized hemicolon.
== END | disposition home or self-care (01) ==
LOC: RADXRMAIN 11:07
PROVIDERS: ATTEND Urology
DX: Z48.816 Encounter for surgical aftercare following surgery on the genitourinary system (principal); Z96.0 Presence of urogenital implants
CPT/HCPCS: 74018

== ENCOUNTER → 2017-12-09 | Outpatient (CLI) | payer MEDICAID ==
--- NOTE | 2017-12-09 15:29 | US ---
EXAMINATION TYPE: US venous doppler duplex LE DATE OF EXAM: 12/09/2017 3:06 PM COMPARISON: US CLINICAL HISTORY: I87.0 Edema. 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 SIDE PERFORMED: Bilateral TECHNIQUE: The lower extremity deep venous system is examined utilizing real time linear array sonog bernice with graded compression, doppler sonography and color-flow sonography. VESSELS IMAGED: External Iliac Vein (EIV) Common Femoral Vein Deep Femoral Vein Greater Saphenous Vein * Femoral Vein Popliteal Vein Proximal Calf Veins (* superficial vessels) Right Leg: Negative for DVT Left Leg: Negative for DVT Grayscale, color doppler, spectral doppler imaging performed of the deep veins of the lower extremiti es. There is normal flow, compressibility, vascular waveforms. IMPRESSION: No sonographic evidence of deep venous thrombosis within the bilateral lower extremities .
== END | disposition home or self-care (01) ==
LOC: RADUSWWP 14:30
PROVIDERS: ATTEND Radiology Radiation Oncology
DX: I87.009 Postthrombotic syndrome without complications of unspecified extremity (principal)
CPT/HCPCS: 93970

== ENCOUNTER 2017-12-30 16:33 | Emergency (ER) | payer MEDICAID ==
[2017-12-30] MEDS ORDERED: SODIUM CHLORIDE 0.9% 1,000 ML IV STA (17:04)
[2017-12-30] MEDS ORDERED: ONDANSETRON 4 MG/2 ML VIAL IVP STA (17:04)
[2017-12-30] MEDS ORDERED: FAMOTIDINE 20 MG/2 ML VIAL IV STA (17:05)
--- NOTE | 2017-12-30 17:07 | ED ---
General Adult HPI - General Chief complaint: Nausea/Vomiting/Diarrhea Stated complaint: Dizzy, vomiting Time Seen by Provider: 12/30/17 16:47 Source: patient, RN notes reviewed, old records reviewed Mode of arrival: wheelchair Limitations: no limitations - History of Present Illness Initial comments: Patient 42-year-old female presented to the emergency room today with a chief complaint of symptoms of nausea vomiting started proxy 5 hours ago after eating lunch. Patient does admit she's not x-rays any abdominal pain. She states that muscle episodes of vomiting. No signs of blood. Patient denies any diarrhea. She does admit to a history of pelvic masses. She states she is currently being treated through [facility] trying to shrink these have surgery. She states that she's had some reactions of nausea with these medications. Patient denies any other symptoms currently. Patient denies any recent fever, chills, shortness of breath, chest pain, back pain, numbness or tingling, dysuria or hematuria, constipation or diarrhea, headaches or visual changes, or any other complaints. - Related Data Home Medications Medication Instructions Recorded Confirmed Citalopram Hydrobromide [CeleXA] 40 mg PO DAILY 10/07/16 12/30/17 Multivitamins, Thera [Multivitamin 1 tab PO DAILY 10/07/16 12/30/17 (formulary)] Albuterol Inhaler [Ventolin Hfa 1 - 2 puff INHALATION RT-Q6H PRN 11/15/17 Inhaler] Megestrol [Megace] 80 mg PO BID 11/16/17 12/30/17 Calcium/Vitamin D3(Unknown) 1 tab PO DAILY 12/30/17 12/30/17 Ibuprofen [Motrin] 800 mg PO TID PRN 12/30/17 12/30/17 Ketorolac [Toradol] 10 mg PO Q6HR PRN 12/30/17 12/30/17 Leuprolide Acetate [Lupron Depot] 11.25 mg IM ONCE 12/30/17 12/30/17 Oxybutynin Chloride [Ditropan] 5 mg PO BID 12/30/17 12/30/17 Polyethylene Glycol 3350 [Miralax] 17 - 34 gm PO Q48H 12/30/17 12/30/17 Previous Rx's Medication Instructions Recorded Nitrofurantoin Monohyd/M-Cryst 100 mg PO Q12HR #14 cap 12/30/17 [Macrobid] Ondansetron Odt [Zofran ODT] 4 mg PO Q8HR PRN #20 tab 12/30/17 Allergies Allergy/AdvReac Type Severity Reaction Status Date / Time clarithromycin [From Biaxin] Allergy Anaphylaxis Verified 12/30/17 18:14 diphenhydramine Allergy Rash/Hives Verified 12/30/17 18:14 [From Tylenol PM] hydromorphone [From Dilaudid] Allergy Rash/Hives Verified 12/30/17 18:14 minocycline Allergy Rash/Hives Verified 12/30/17 18:14 Review of Systems ROS Statement: Those systems with pertinent positive or pertinent negative responses have been documented in the HPI. ROS Other: All systems not noted in ROS Statement are negative. Past Medical History Past Medical History: Asthma, Sleep Apnea/CPAP/BIPAP Additional Past Medical History / Comment(s): FAMILY HX COLON CA. USES CPAP, 4- 10. vertigo History of Any Multi-Drug Resistant Organisms: None Reported Past Surgical History: Section, Cholecystectomy, Hysterectomy, Orthopedic Surgery, Tubal Ligation Additional Past Surgical History / Comment(s): LASIK. EXC IMPACTED WISDOM TEETH. RT WRIST GANGLION CYST EXC. RODRIGUEZ KNEE SURG, LT WAS A SCOPE. skin biopsies, fibromas removed from leg and arm Past Anesthesia/Blood Transfusion Reactions: Previous Problems w/ Anesthesia, Family History of Problems w/ Anesthesia, Motion Sickness Additional Past Anesthesia/Blood Transfusion Reaction / Comment(s): "HARD TO AROUSE FROM ANESTHESIA;" FAMILY HX OF SAME. Past Psychological History: Anxiety Smoking Status: Never smoker Past Alcohol Use History: None Reported Past Drug Use History: None Reported - Past Family History Father Family Medical History: Cancer Mother Family Medical History: Cancer General Exam - General Exam Comments Initial Comments: General: The patient is awake and alert. Eye: There is normal conjunctiva bilaterally. No signs of icterus. Ears, nose, mouth and throat: There are moist mucous membranes and no oral lesions. Neck: The neck is supple, there is no tenderness or JVD. Cardiovascular: There is a regular rate and rhythm. No murmur, rub or gallop is appreciated. Respiratory: Lungs are clear to auscultation, respirations are non-labored, breath sounds are equal. No wheezes, stridor, rales, or rhonchi. Gastrointestinal: Soft, non-distended, non-tender abdomen without masses or organomegaly noted. There is no rebound or guarding present. No CVA tenderness. Musculoskeletal: Normal ROM, no tenderness. Sensation intact.+. Neurological: A&O x 3. CN II-XII intact, There are no obvious motor or sensory deficits. Coordination appears grossly intact. Speech is normal. Skin: Skin is warm and dry and no rashes or lesions are noted. Psychiatric: Cooperative, appropriate mood & affect, normal judgment. Limitations: no limitations Course Vital Signs 12/30/17 16:38 Temperature 97.6 F Pulse Rate 89 Respiratory 20 Rate Blood Pressure 168/88 O2 Sat by Pulse 99 Oximetry Medical Decision Making - Medical Decision Making Case discussed in detail with attending physician Dr. Gallagher. Patient reexamined at this time shows no signs of distress. She was feeling much better here in the emergency room after medications. Patient's labs been reviewed. Urinalysis does show large amount of blood. She does admit that she had stents placed in the ureters. She states that this is been somewhat normal for her to see some blood. She does have over 50 white cells. Patient does admit to increased frequency. Vitals are stable. Patient will be started on antibiotics cover for infection. Cultures pending. Patient with nausea medication go home with. She is advised follow-up the urologist in the next 2 days. Advised return if any symptoms increase worsen. - Lab Data Result diagrams: 12/30/17 16:50 12/30/17 16:50 Lab Results 12/30/17 12/30/17 12/30/17 Range/Units 16:50 16:50 16:50 WBC 8.5 (3.8-10.6) k/uL RBC 4.64 (3.80-5.40) m/uL Hgb 14.4 (11.4-16.0) gm/dL Hct 43.2 (34.0-46.0) % MCV 93.2 (80.0-100.0) fL MCH 31.1 (25.0-35.0) pg MCHC 33.4 (31.0-37.0) g/dL RDW 12.4 (11.5-15.5) % Plt Count 212 (150-450) k/uL Neutrophils % 75 % Lymphocytes % 18 % Monocytes % 3 % Eosinophils % 2 % Basophils % 1 % Neutrophils # 6.4 (1.3-7.7) k/uL Lymphocytes # 1.5 (1.0-4.8) k/uL Monocytes # 0.3 (0-1.0) k/uL Eosinophils # 0.2 (0-0.7) k/uL Basophils # 0.0 (0-0.2) k/uL PT (9.0-12.0) sec INR (<1.2) APTT (22.0-30.0) sec Sodium 141 (137-145) mmol/L Potassium 4.4 (3.5-5.1) mmol/L Chloride 110 H (98-107) mmol/L Carbon Dioxide 19 L (22-30) mmol/L Anion Gap 12 mmol/L BUN 20 H (7-17) mg/dL Creatinine 0.91 (0.52-1.04) mg/dL Est GFR (CKD-EPI)AfAm 89 (>60 ml/min/1.73 sqM) Est GFR (CKD-EPI)NonAf 78 (>60 ml/min/1.73 sqM) Glucose 100 H (74-99) mg/dL Calcium 9.7 (8.4-10.2) mg/dL Total Bilirubin 0.7 (0.2-1.3) mg/dL AST 30 (14-36) U/L ALT 16 (9-52) U/L Alkaline Phosphatase 51 (38-126) U/L Total Protein 7.2 (6.3-8.2) g/dL Albumin 4.2 (3.5-5.0) g/dL Amylase 44 (30-110) U/L Lipase 62 (23-300) U/L Urine Color Yellow Urine Appearance Cloudy H (Clear) Urine pH 7.0 (5.0-8.0) Ur Specific [place] 1.014 (1.001-1.035) Urine Protein 1+ H (Negative) Urine Glucose (UA) Negative (Negative) Urine Ketones Negative (Negative) Urine Blood Large H (Negative) Urine Nitrite Negative (Negative) Urine Bilirubin Negative (Negative) Urine Urobilinogen <2.0 (<2.0) mg/dL Ur Leukocyte Esterase Moderate H (Negative) Urine RBC >182 H (0-5) /hpf Urine WBC 53 H (0-5) /hpf Ur Squamous Epith Cells 2 (0-4) /hpf Hyaline Casts 3 H (0-2) /lpf Urine Mucus Few H (None) /hpf Urine HCG, Qual (Not Detectd) 12/30/17 12/30/17 Range/Units 16:50 16:50 WBC (3.8-10.6) k/uL RBC (3.80-5.40) m/uL Hgb (11.4-16.0) gm/dL Hct (34.0-46.0) % MCV (80.0-100.0) fL MCH (25.0-35.0) pg MCHC (31.0-37.0) g/dL RDW (11.5-15.5) % Plt Count (150-450) k/uL Neutrophils % % Lymphocytes % % Monocytes % % Eosinophils % % Basophils % % Neutrophils # (1.3-7.7) k/uL Lymphocytes # (1.0-4.8) k/uL Monocytes # (0-1.0) k/uL Eosinophils # (0-0.7) k/uL Basophils # (0-0.2) k/uL PT 10.4 (9.0-12.0) sec INR 1.1 (<1.2) APTT 23.6 (22.0-30.0) sec Sodium (137-145) mmol/L Potassium (3.5-5.1) mmol/L Chloride (98-107) mmol/L Carbon Dioxide (22-30) mmol/L Anion Gap mmol/L BUN (7-17) mg/dL Creatinine (0.52-1.04) mg/dL Est GFR (CKD-EPI)AfAm (>60 ml/min/1.73 sqM) Est GFR (CKD-EPI)NonAf (>60 ml/min/1.73 sqM) Glucose (74-99) mg/dL Calcium (8.4-10.2) mg/dL Total Bilirubin (0.2-1.3) mg/dL AST (14-36) U/L ALT (9-52) U/L Alkaline Phosphatase (38-126) U/L Total Protein (6.3-8.2) g/dL Albumin (3.5-5.0) g/dL Amylase (30-110) U/L Lipase (23-300) U/L Urine Color Urine Appearance (Clear) Urine pH (5.0-8.0) Ur Specific [place] (1.001-1.035) Urine Protein (Negative) Urine Glucose (UA) (Negative) Urine Ketones (Negative) Urine Blood (Negative) Urine Nitrite (Negative) Urine Bilirubin (Negative) Urine Urobilinogen (<2.0) mg/dL Ur Leukocyte Esterase (Negative) Urine RBC (0-5) /hpf Urine WBC (0-5) /hpf Ur Squamous Epith Cells (0-4) /hpf Hyaline Casts (0-2) /lpf Urine Mucus (None) /hpf Urine HCG, Qual Not Detected (Not Detectd) Disposition Clinical Impression: Nausea & vomiting Disposition: HOME SELF-CARE Condition: Good Instructions: Acute Nausea and Vomiting (ED) Additional Instructions: Please use medication as discussed. Please follow-up with urology/family doctor in the next 2 days of symptoms have not improved. Please return to emergency room if the symptoms increase or worsen or for any other concerns. Prescriptions: Nitrofurantoin Monohyd/M-Cryst [Macrobid] 100 mg PO Q12HR #14 cap Ondansetron Odt [Zofran ODT] 4 mg PO Q8HR PRN #20 tab PRN Reason: Nausea Is patient prescribed a controlled substance at d/c from ED?: No Referrals: Kimberly Valladares MD [Primary Care Provider] - 1-2 days Toby Russell MD [STAFF PHYSICIAN] - 1-2 days Time of Disposition: 18:34
[2017-12-30 17:22] LABS: Basophils % (A) 1 %; Eosinophils # (A) 0.2 k/uL (0-0.7); Eosinophils % (A) 2 %; HCT 43.2 % (34.0-46.0); HGB 14.4 gm/dL (11.4-16.0); Lymphocytes # (A) 1.5 k/uL (1.0-4.8); Lymphocytes % (A) 18 %; MCH 31.1 pg (25.0-35.0); MCHC 33.4 g/dL (31.0-37.0); MCV 93.2 fL (80.0-100.0); Mean Platelet Volume 7.4; Monocytes # (A) 0.3 k/uL (0-1.0); Monocytes % (A) 3 %; Neutrophils # (A) 6.4 k/uL (1.3-7.7); Neutrophils % (A) 75 %; Platelet Count 212 k/uL (150-450); RBC 4.64 m/uL (3.80-5.40); RDW 12.4 % (11.5-15.5); WBC 8.5 k/uL (3.8-10.6)
[2017-12-30 17:32] LABS: INR 1.1 (<1.2); Partial Thromboplastin Time 23.6 sec (22.0-30.0); Prothrombin Time 10.4 sec (9.0-12.0)
[2017-12-30 17:33] LABS: Albumin 4.2 g/dL (3.5-5.0); Calcium 9.7 mg/dL (8.4-10.2); Potassium 4.4 mmol/L (3.5-5.1); Total Bilirubin 0.7 mg/dL (0.2-1.3); Total Protein 7.2 g/dL (6.3-8.2)
[2017-12-30 17:35] LABS: Appearance,Urine Cloudy (Clear); Bilirubin,Urine Negative (Negative); Blood,Urine Large (Negative); Color,Urine Yellow; Glucose,Urine (UA) Negative (Negative); Hyaline Casts,Urine 3 /lpf (0-2); Ketones,Urine Negative (Negative); Leukocyte Esterase,Urine Moderate (Negative); Mucus,Urine Few /hpf; Nitrite,Urine Negative (Negative); Protein,Urine 1+ (Negative); RBC,Urine >182 /hpf (0-5); Specific Gravity,Urine 1.014 (1.001-1.035); Squamous Epithelial Cell,Urine 2 /hpf (0-4); Urobilinogen,Urine <2.0 mg/dL (<2.0); WBC,Urine 53 /hpf (0-5)
[2017-12-30 18:58] VITALS: BP 120/78; PULSE 69; RESP 18; TEMP 98
== END 2017-12-30 18:58 | disposition home or self-care (01) ==
LOC: EC 16:33
DX: R11.2 Nausea with vomiting, unspecified (principal); R31.9 Hematuria, unspecified; R35.0 Frequency of micturition; G47.30 Sleep apnea, unspecified; J45.909 Unspecified asthma, uncomplicated; F41.9 Anxiety disorder, unspecified; Z88.1 Allergy status to other antibiotic agents; Z88.5 Allergy status to narcotic agent; Z88.8 Allergy status to other drugs, medicaments and biological substances; Z79.899 Other long term (current) drug therapy; Z90.49 Acquired absence of other specified parts of digestive tract; Z99.89 Dependence on other enabling machines and devices; Z96.0 Presence of urogenital implants
CPT/HCPCS: 36415; 80053; 82150; 83690; 85025; 85610; 85730; 81001; 81025; 87086; 99284; 96374; 96375; 96361 ×2; J2405

== ENCOUNTER 2018-01-26 16:20 | Emergency (ER) | payer MEDICAID ==
[2018-01-26 16:32] VITALS: PULSE 77
--- NOTE | 2018-01-26 17:24 | ED ---
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 Her physician is concerned about pulmonary embolism patient denies any chest pain fevers chills nausea vomiting sweats she does have shortness of breath with exertional dyspnea. No prior history of DVT. No prior history of PE. No other modifying factors at this time. MD Complaint: shortness of breath - Related Data Home Medications Medication Instructions Recorded Confirmed Citalopram Hydrobromide [CeleXA] 40 mg PO DAILY 10/07/16 01/26/18 Multivitamins, Thera [Multivitamin 1 tab PO DAILY 10/07/16 01/26/18 (formulary)] Megestrol [Megace] 160 mg PO DAILY 11/16/17 01/26/18 Ibuprofen [Motrin] 800 mg PO DAILY PRN 12/30/17 01/26/18 Ketorolac [Toradol] 10 mg PO Q6HR PRN 12/30/17 01/26/18 Leuprolide Acetate [Lupron Depot] 11.25 mg IM ONCE 12/30/17 01/26/18 Aspirin EC [Ecotrin Low Dose] 81 mg PO HS 01/26/18 01/26/18 Calcium Carbonate [Calcium] 600 mg PO DAILY 01/26/18 01/26/18 Cholecalciferol (Vitamin D3) 10,000 unit PO DAILY 01/26/18 01/26/18 [Vitamin D3] Cyanocobalamin (Vitamin B-12) 2,500 mcg PO DAILY 01/26/18 01/26/18 [Vitamin B12] Oxybutynin Chloride [Ditropan XL] 10 mg PO DAILY 01/26/18 01/26/18 Allergies Allergy/AdvReac Type Severity Reaction Status Date / Time clarithromycin [From Biaxin] Allergy Anaphylaxis Verified 01/26/18 16:57 diphenhydramine Allergy Rash/Hives Verified 01/26/18 16:57 [From Tylenol PM] hydromorphone [From Dilaudid] Allergy Rash/Hives Verified 01/26/18 16:57 minocycline Allergy Rash/Hives Verified 01/26/18 16:57 Review of Systems ROS Statement: Those systems with pertinent positive or pertinent negative responses have been documented in the HPI. ROS Other: All systems not noted in ROS Statement are negative. Past Medical History Past Medical History: Asthma, Sleep Apnea/CPAP/BIPAP Additional Past Medical History / Comment(s): FAMILY HX COLON CA. USES CPAP, 4- 10. vertigo History of Any Multi-Drug Resistant Organisms: None Reported Past Surgical History: Section, Cholecystectomy, Hysterectomy, Orthopedic Surgery, Tubal Ligation Additional Past Surgical History / Comment(s): LASIK. EXC IMPACTED WISDOM TEETH. RT WRIST GANGLION CYST EXC. RODRIGUEZ KNEE SURG, LT WAS A SCOPE. skin biopsies, fibromas removed from leg and arm Past Anesthesia/Blood Transfusion Reactions: Previous Problems w/ Anesthesia, Family History of Problems w/ Anesthesia, Motion Sickness Additional Past Anesthesia/Blood Transfusion Reaction / Comment(s): "HARD TO AROUSE FROM ANESTHESIA;" FAMILY HX OF SAME. Past Psychological History: Anxiety Smoking Status: Never smoker Past Alcohol Use History: None Reported Past Drug Use History: None Reported - Past Family History Father Family Medical History: Cancer Mother Family Medical History: Cancer General Exam - General Exam Comments Initial Comments: This is a well-developed well-nourished awake alert oriented x3 female Limitations: no limitations General appearance: alert, in no apparent distress Head exam: Present: atraumatic, normocephalic, normal inspection Eye exam: Present: normal appearance, PERRL, EOMI. Absent: scleral icterus, conjunctival injection, periorbital swelling ENT exam: Present: normal exam, mucous membranes moist Neck exam: Present: normal inspection. Absent: tenderness, meningismus, lymphadenopathy Respiratory exam: Present: normal lung sounds bilaterally. Absent: respiratory distress, wheezes, rales, rhonchi, stridor Cardiovascular Exam: Present: regular rate, normal rhythm, normal heart sounds. Absent: systolic murmur, diastolic murmur, rubs, gallop, clicks GI/Abdominal exam: Present: soft, normal bowel sounds. Absent: distended, tenderness, guarding, rebound, rigid Extremities exam: Present: normal inspection, full ROM, normal capillary refill. Absent: tenderness, pedal edema, joint swelling, calf tenderness Back exam: Present: normal inspection Neurological exam: Present: alert, oriented X3, CN II-XII intact Psychiatric exam: Present: normal affect, normal mood Skin exam: Present: warm, dry, intact, normal color. Absent: rash Course Vital Signs 01/26/18 01/26/18 01/26/18 16:28 17:56 18:00 Temperature 98.1 F Pulse Rate 77 Respiratory 16 18 Rate Blood Pressure 132/84 121/79 O2 Sat by Pulse 98 98 Oximetry 01/26/18 01/26/18 01/26/18 18:30 19:00 19:37 Temperature Pulse Rate 77 Respiratory 18 20 Rate Blood Pressure 141/78 106/70 129/76 O2 Sat by Pulse 98 100 Oximetry Medical Decision Making - Medical Decision Making I did discuss the findings with the patient. She'll be discharged she is a follow-up with her doctor and return when necessary - Lab Data Result diagrams: 01/26/18 18:08 01/26/18 18:08 Lab Results 01/26/18 01/26/18 01/26/18 Range/Units 18:08 18:08 18:08 WBC 5.1 (3.8-10.6) k/uL RBC 3.97 (3.80-5.40) m/uL Hgb 12.7 (11.4-16.0) gm/dL Hct 36.9 (34.0-46.0) % MCV 93.0 (80.0-100.0) fL MCH 32.0 (25.0-35.0) pg MCHC 34.4 (31.0-37.0) g/dL RDW 12.5 (11.5-15.5) % Plt Count 184 (150-450) k/uL Neutrophils % 54 % Lymphocytes % 31 % Monocytes % 4 % Eosinophils % 9 % Basophils % 0 % Neutrophils # 2.7 (1.3-7.7) k/uL Lymphocytes # 1.6 (1.0-4.8) k/uL Monocytes # 0.2 (0-1.0) k/uL Eosinophils # 0.5 (0-0.7) k/uL Basophils # 0.0 (0-0.2) k/uL PT 10.6 (9.0-12.0) sec INR 1.0 (<1.2) APTT 21.1 L (22.0-30.0) sec Sodium 141 (137-145) mmol/L Potassium 4.4 (3.5-5.1) mmol/L Chloride 110 H (98-107) mmol/L Carbon Dioxide 24 (22-30) mmol/L Anion Gap 7 mmol/L BUN 18 H (7-17) mg/dL Creatinine 1.02 (0.52-1.04) mg/dL Est GFR (CKD-EPI)AfAm 78 (>60 ml/min/1.73 sqM) Est GFR (CKD-EPI)NonAf 68 (>60 ml/min/1.73 sqM) Glucose 86 (74-99) mg/dL Calcium 9.3 (8.4-10.2) mg/dL Magnesium 2.0 (1.6-2.3) mg/dL Total Bilirubin 0.5 (0.2-1.3) mg/dL AST 28 (14-36) U/L ALT 17 (9-52) U/L Alkaline Phosphatase 43 (38-126) U/L Total Protein 6.6 (6.3-8.2) g/dL Albumin 3.7 (3.5-5.0) g/dL - Radiology Data Radiology results: report reviewed (I did review the imaging and report no evidence of pulmonary emboli. They see the complete report), image reviewed Disposition Clinical Impression: Dyspnea, Feared condition not demonstrated Disposition: HOME SELF-CARE Condition: Good Instructions: Dyspnea (ED) Is patient prescribed a controlled substance at d/c from ED?: No Referrals: Kimberly Valladares MD [Primary Care Provider] - 1-2 days
[2018-01-26 18:19] LABS: Basophils % (A) 0 %; Eosinophils # (A) 0.5 k/uL (0-0.7); Eosinophils % (A) 9 %; HCT 36.9 % (34.0-46.0); HGB 12.7 gm/dL (11.4-16.0); Lymphocytes # (A) 1.6 k/uL (1.0-4.8); Lymphocytes % (A) 31 %; MCHC 34.4 g/dL (31.0-37.0); Mean Platelet Volume 7.8; Monocytes # (A) 0.2 k/uL (0-1.0); Monocytes % (A) 4 %; Neutrophils # (A) 2.7 k/uL (1.3-7.7); Neutrophils % (A) 54 %; Platelet Count 184 k/uL (150-450); RBC 3.97 m/uL (3.80-5.40); RDW 12.5 % (11.5-15.5); WBC 5.1 k/uL (3.8-10.6)
[2018-01-26 18:40] LABS: Albumin 3.7 g/dL (3.5-5.0); Calcium 9.3 mg/dL (8.4-10.2); Potassium 4.4 mmol/L (3.5-5.1); Total Bilirubin 0.5 mg/dL (0.2-1.3); Total Protein 6.6 g/dL (6.3-8.2)
[2018-01-26 18:53] LABS: Prothrombin Time 10.6 sec (9.0-12.0)
[2018-01-26 18:56] LABS: Partial Thromboplastin Time 21.1 sec (22.0-30.0)
--- NOTE | 2018-01-26 19:28 | CT ---
EXAMINATION TYPE: CT angio chest with contrast and with 3-D reconstruction renderings DATE OF EXAM: 01/26/2018 7:14 PM COMPARISON: None HISTORY: Pt on medication for benign retroperitoneal tumors, causing SOB. R/o PE CT DLP: 420.9 mGycm Automated exposure control for dose reduction was used. CONTRAST: CTA scan of the thorax is performed with IV Contrast, patient injected with 100 mL of Isovue 370, pul monary embolism protocol. 3-D reconstructions. FINDINGS: LUNGS: The lungs are grossly clear, there is no concerning parenchymal mass or nodule identified. The re is no pleural effusion or pneumothorax seen. The tracheobronchial tree is patent. MEDIASTINUM: There is satisfactory enhancement of the pulmonary artery and its branches; there is no CT evidence for pulmonary embolism. No acute aortic findings. There is no cardiomegaly or pericardial effusion or coronary calcifications. There are no greater than 1 cm hilar or mediastinal lymph node s. OTHER: No additional significant abnormality is seen. IMPRESSION: NO ACUTE PROCESS.
[2018-01-26 20:24] VITALS: BP 119/76; RESP 18; TEMP 97
== END 2018-01-26 20:24 | disposition home or self-care (01) ==
LOC: EC 16:20
DX: R06.02 Shortness of breath (principal); Z71.1 Person with feared health complaint in whom no diagnosis is made; G47.30 Sleep apnea, unspecified; Z99.89 Dependence on other enabling machines and devices; F41.9 Anxiety disorder, unspecified; Z85.038 Personal history of other malignant neoplasm of large intestine; Z79.82 Long term (current) use of aspirin; Z79.899 Other long term (current) drug therapy; Z88.1 Allergy status to other antibiotic agents; Z88.5 Allergy status to narcotic agent; Z88.8 Allergy status to other drugs, medicaments and biological substances
CPT/HCPCS: 36415; 80053; 83735; 85025; 85610; 85730; 71275; 99285; Q9967

== ENCOUNTER → 2018-02-07 | Outpatient (CLI) | payer MEDICAID ==
--- NOTE | 2018-02-08 17:10 | CT ---
EXAMINATION TYPE: CT enter w con DATE OF EXAM: 02/07/2018 COMPARISON: CTA chest dated 01/26/[address] abdomen pelvis dated 09/27/2017 HISTORY: f/u multiple masses CT DLP: 1851.6 mGycm. Automated Exposure Control for Dose Reduction was Utilized. CONTRAST: CT scan of the thorax, abdomen and pelvis is performed with IV Contrast, patient injected with 100 mL of Isovue 300. FINDINGS: LUNGS: The lungs are grossly clear, there is no concerning parenchymal mass or nodule identified. T here is no pleural effusion or pneumothorax seen. The tracheobronchial tree is patent. MEDIASTINUM: There are no greater than 1 cm hilar or mediastinal lymph nodes. [place] prevascular and right paratracheal lymph nodes are seen as well as a nonenlarged epicardial lymph node. No pericardi al effusion is seen. OTHER: There is an approximately 1 cm left thyroid hypoattenuated nodule at the superior pole. LIVER/GB: There are scattered fluid attenuated cyst throughout the liver, similar to the prior of the 718 with the largest measuring 1.9 cm. No intrahepatic biliary ductal dilatation. Gallbladder surgic ally absent. PANCREAS: No significant abnormality is seen. SPLEEN: Spleen is nonenlarged measuring 11.3 cm in craniocaudal dimension. ADRENALS: No significant abnormality is seen. KIDNEYS: There are bilateral double-J ureteral stents placed with mild to moderate left and moderate right hydronephrosis, similar to the prior. The kidneys enhance and excrete symmetrically. BOWEL: There is distal sigmoid colonic spasm and narrowing with impression upon the lumen by the larg e pelvic masses, however there is no proximal dilatation to suggest obstruction. There is a moderate amount retained colonic stool noted. Contrast extends throughout the unremarkable small bowel into th e ascending colon, limiting evaluation of the remainder of the colon. There appears to be lipomatous hypertrophy of the ileocecal valve and an unremarkable appearing appendix. GENITAL ORGANS: Patient describes hysterectomy. Bilateral ovaries are not visualized and could be obs cured by the pelvic masses or also surgically absent. LYMPH NODES: The matted periaortic abdominal and pelvic masses could represent adenopathy. These are described below. OSSEOUS STRUCTURES: There is a similar appearing sclerotic focus within the S1 vertebral body, nonspe cific. Very minimal degenerative changes of the spine are noted. Overall osseous structures appear in tact. ABDOMINAL AND PELVIC MASSES/OTHER: There is interval enlargement of the large heterogenous pelvic mas ses. The largest are seen along the right and left pelvic sidewalls encasing the bilateral external i liac chains and internal iliac chains. When measured at a similar location on the right this heteroge nous mass measures approximately 13.2 x 7.7 cm and previously measured 11.2 x 6.5 cm marked on series 3 image 103 and on the left this measures approximately 11.9 x 6.6 cm. These masses again encases th e ureters, have mass effect upon the urinary bladder, encase pelvic arteries and veins and narrow bow el lumen. The masses extend up to the aortoiliac chain into the retroperitoneum and periaortic space. When niru ured in a similar location on series 3 image 85 the mass currently measures 9.8 x 6.5 cm and previous ly measured approximately 9.2 x 6.2 cm. Periaortic masses on series 3 image 75 measure 5.9 x 5.0 cm o n the left and 4.7 x 5.7 cm on the right. IMPRESSION: Interval enlargement of the large heterogenous pelvic and retroperitoneal masses encasing vasculature , creating mass effect upon the bowel without current obstruction, and encasing the ureters causing s imilar degree of bilateral hydronephrosis despite the double-J ureteral stents (note renal enhancemen t and excretion is as expected and symmetric). Considerations are for aggressive appearing lymphoma, metastatic gynecologic malignancy, or much less likely endometriosis. Percutaneous biopsy should be c onsidered for definitive diagnosis.
== END | disposition home or self-care (01) ==
LOC: RADCTMAIN 14:48
PROVIDERS: ATTEND Obstetrics & Gynecology
DX: N13.30 Unspecified hydronephrosis (principal); R19.09 Other intra-abdominal and pelvic swelling, mass and lump
CPT/HCPCS: 82565; 84520; 71260; 74177; 36415; Q9967

== ENCOUNTER → 2018-02-15 | Outpatient (CLI) | payer MEDICAID ==
--- NOTE | 2018-02-17 09:30 | MM ---
Reason for exam: screening (asymptomatic). Last mammogram was performed 1 year ago. History: Patient is postmenopausal. Family history of breast cancer in maternal grandmother at age 90. Benign excisional biopsy of the right breast, 2013. Physical Findings: A clinical breast exam by your physician is recommended on an annual basis and results should be correlated with mammographic findings. MG 3D Screening Mammo W/Cad Bilateral CC and MLO view(s) were taken. Prior study comparison: February 01, 2017, bilateral MG 3d screening mammo w/cad. December 29, 2015, bilateral MG 3d screening mammo w/cad. There are scattered fibroglandular densities. Previous mammotome biopsy in the right breast with chronic nodularity. No significant changes when compared with prior studies. ASSESSMENT: Negative, BI-RAD 1 RECOMMENDATION: Routine screening mammogram of both breasts in 1 year.
== END | disposition home or self-care (01) ==
LOC: RADMAMWWP 07:34
PROVIDERS: ATTEND Family Medicine
DX: Z12.31 Encounter for screening mammogram for malignant neoplasm of breast (principal)
CPT/HCPCS: 77063; 77067

== ENCOUNTER → 2018-03-10 | Outpatient (CLI) | payer MEDICAID ==
[2018-03-10 14:46] LABS: Appearance,Urine Cloudy (Clear); Bacteria,Urine Rare /hpf; Basophils % (A) 1 %; Bilirubin,Urine Negative (Negative); Blood,Urine Large (Negative); Color,Urine Yellow; Eosinophils # (A) 0.5 k/uL (0-0.7); Eosinophils % (A) 8 %; Glucose,Urine (UA) Negative (Negative); HCT 41.3 % (34.0-46.0); HGB 13.2 gm/dL (11.4-16.0); Ketones,Urine Negative (Negative); Leukocyte Esterase,Urine Small (Negative); Lymphocytes # (A) 1.7 k/uL (1.0-4.8); Lymphocytes % (A) 31 %; MCHC 32.1 g/dL (31.0-37.0); MCV 96.6 fL (80.0-100.0); Mean Platelet Volume 7.6; Monocytes # (A) 0.3 k/uL (0-1.0); Monocytes % (A) 5 %; Neutrophils # (A) 2.8 k/uL (1.3-7.7); Neutrophils % (A) 53 %; Nitrite,Urine Negative (Negative); PH, Urine 6.5 (5.0-8.0); Platelet Count 198 k/uL (150-450); Protein,Urine 2+ (Negative); RBC 4.28 m/uL (3.80-5.40); RBC,Urine >182 /hpf (0-5); RDW 12.7 % (11.5-15.5); Specific Gravity,Urine 1.015 (1.001-1.035); Squamous Epithelial Cell,Urine 1 /hpf (0-4); Urobilinogen,Urine <2.0 mg/dL (<2.0); WBC 5.4 k/uL (3.8-10.6); WBC,Urine 19 /hpf (0-5)
[2018-03-10 15:04] LABS: Calcium 9.5 mg/dL (8.4-10.2); Potassium 4.6 mmol/L (3.5-5.1)
== END | disposition home or self-care (01) ==
LOC: LABPAT 13:32
PROVIDERS: ATTEND Urology
DX: Z01.812 Encounter for preprocedural laboratory examination (principal); N13.30 Unspecified hydronephrosis
CPT/HCPCS: 36415; 80048; 81001; 85025; 87086

== ENCOUNTER → 2018-04-17 | Outpatient (CLI) | payer MEDICAID ==
[2018-04-17 16:46] LABS: Basophils # (A) 0.1 k/uL (0-0.2); Basophils % (A) 1 %; Eosinophils # (A) 0.6 k/uL (0-0.7); Eosinophils % (A) 10 %; HCT 39.6 % (34.0-46.0); HGB 13.4 gm/dL (11.4-16.0); Lymphocytes # (A) 1.6 k/uL (1.0-4.8); Lymphocytes % (A) 27 %; MCH 32.1 pg (25.0-35.0); MCHC 33.9 g/dL (31.0-37.0); MCV 94.7 fL (80.0-100.0); Mean Platelet Volume 7.3; Monocytes # (A) 0.3 k/uL (0-1.0); Monocytes % (A) 5 %; Neutrophils # (A) 3.3 k/uL (1.3-7.7); Neutrophils % (A) 55 %; Platelet Count 182 k/uL (150-450); RBC 4.18 m/uL (3.80-5.40); RDW 12.5 % (11.5-15.5)
[2018-04-17 16:56] LABS: Appearance,Urine Cloudy (Clear); Bilirubin,Urine Negative (Negative); Blood,Urine Large (Negative); Color,Urine Red; Glucose,Urine (UA) Negative (Negative); Ketones,Urine Negative (Negative); Leukocyte Esterase,Urine Moderate (Negative); Mucus,Urine Occasional /hpf; Nitrite,Urine Negative (Negative); PH, Urine 5.5 (5.0-8.0); Protein,Urine 2+ (Negative); RBC,Urine >182 /hpf (0-5); Specific Gravity,Urine 1.016 (1.001-1.035); Urobilinogen,Urine <2.0 mg/dL (<2.0); WBC,Urine 28 /hpf (0-5)
[2018-04-17 23:25] LABS: Albumin 4.1 g/dL (3.80-4.90); Albumin/Globulin Ratio 2.05 (1.60-3.17); Anion Gap 4.6 mmol/L (4.00-12.00); Calcium 9.1 mg/dL (8.7-10.3); Carbon Dioxide 27.4 mmol/L (21.6-31.8); Potassium 4.1 mmol/L (3.5-5.5); Total Bilirubin 0.2 mg/dL (0.3-1.2); Total Protein 6.1 g/dL (6.2-8.2)
== END | disposition home or self-care (01) ==
LOC: LABWHC1 16:14
PROVIDERS: ATTEND Radiology Radiation Oncology
DX: N13.2 Hydronephrosis with renal and ureteral calculous obstruction (principal)
CPT/HCPCS: 36415; 80053; 81001; 85025; 87086

== ENCOUNTER → 2018-06-09 | Outpatient (CLI) | payer MEDICAID | END | disposition home or self-care (01) | LOC: LABWHC1 11:56 | PROVIDERS: ATTEND Radiology Radiation Oncology | DX: R00.2 Palpitations (principal) | CPT/HCPCS: 36415; 93005 ==

== ENCOUNTER → 2018-07-19 | Outpatient (CLI) | payer MEDICAID ==
[2018-07-19 17:35] LABS: Calcium 9.6 mg/dL (8.4-10.2); Potassium 3.9 mmol/L (3.5-5.1)
[2018-07-19 17:37] LABS: Basophils # (A) 0.1 k/uL (0-0.2); Basophils % (A) 1 %; Eosinophils # (A) 0.3 k/uL (0-0.7); Eosinophils % (A) 5 %; HCT 38.6 % (34.0-46.0); HGB 12.7 gm/dL (11.4-16.0); Lymphocytes # (A) 1.5 k/uL (1.0-4.8); Lymphocytes % (A) 23 %; MCH 29.7 pg (25.0-35.0); MCHC 32.9 g/dL (31.0-37.0); MCV 90.3 fL (80.0-100.0); Mean Platelet Volume 7.5; Monocytes # (A) 0.3 k/uL (0-1.0); Monocytes % (A) 5 %; Neutrophils # (A) 3.9 k/uL (1.3-7.7); Neutrophils % (A) 63 %; Platelet Count 182 k/uL (150-450); RBC 4.28 m/uL (3.80-5.40); RDW 13.6 % (11.5-15.5); WBC 6.2 k/uL (3.8-10.6)
[2018-07-19 17:38] LABS: Appearance,Urine Cloudy (Clear); Bacteria,Urine Few /hpf; Bilirubin,Urine Negative (Negative); Blood,Urine Large (Negative); Color,Urine Light Red; Glucose,Urine (UA) Negative (Negative); Ketones,Urine Negative (Negative); Leukocyte Esterase,Urine Small (Negative); Mucus,Urine Rare /hpf; Nitrite,Urine Negative (Negative); Protein,Urine 2+ (Negative); RBC,Urine >182 /hpf (0-5); Specific Gravity,Urine 1.019 (1.001-1.035); Squamous Epithelial Cell,Urine <1 /hpf (0-4); Urobilinogen,Urine <2.0 mg/dL (<2.0); WBC,Urine 18 /hpf (0-5)
== END | disposition home or self-care (01) ==
LOC: LABPAT 16:55
PROVIDERS: ATTEND Urology
DX: Z01.812 Encounter for preprocedural laboratory examination (principal); N13.30 Unspecified hydronephrosis
CPT/HCPCS: 80048; 81001; 85025; 87086

== ENCOUNTER 2018-07-26 07:26 | Day surgery (SDC) | payer MEDICAID ==
[2018-07-21 15:16] VITALS: BMI 41.5
[~2018-07-26 07:26] MED LIST changes: +HYDROmorphone 0.5 MG/0.5 ML SYRINGE IVP PRN; -LIDOCAINE 1% 20 ML VIAL (10MG/ML) FOR IV START INTRADERMA PRN; -ceFAZolin 1,000 MG in DEXTROSE/WATER 1 50ML.BAG IV ONE
[2018-07-26] MEDS ORDERED: LIDOCAINE 1% 20 ML VIAL (10MG/ML) FOR IV START INTRADERMA ONE (07:57)
[2018-07-26] MEDS ORDERED: ONDANSETRON 4 MG/2 ML VIAL IVP ONE (07:58)
[2018-07-26] MEDS ORDERED: DEXAMETHASONE SOD PHOS (MDV) 100 MG/10 ML VIAL IV ONE (07:59)
[2018-07-26] MEDS ORDERED: SCOPOLAMINE 1.5MG/72HR PATCH TRANSDERM ONE (07:59)
[2018-07-26] MEDS ORDERED: fentaNYL (PF) 50 MCG/ML 2 ML AMP ONE (08:19)
[2018-07-26] MEDS ORDERED: MIDAZOLAM 2 MG/2 ML VIAL ONE (08:19)
[2018-07-26] MEDS ORDERED: LIDOCAINE 1% INJ 10MG/ML (20 ML MDV) ONE (08:19)
[2018-07-26] MEDS ORDERED: PROPOFOL 10 MG/ML 20 ML VIAL IV ONE (08:19)
[2018-07-26] MEDS: ceFAZolin IN SWFI 2 GM/20 ML SYRINGE IVP ONE ×2 (08:22→08:30)
--- NOTE | 2018-07-26 09:05 | P.OP ---
Date of Procedure: 07/26/18 Preoperative Diagnosis: Bilateral hydronephrosis secondary to retroperitoneal leiomyoma Postoperative Diagnosis: Same Procedure(s) Performed: Cystoscopy exchange of double-J catheters, 6 x 24, bilateral Anesthesia: CATRACHITO Surgeon: Toby Russell Pathology: none sent Condition: stable Disposition: PACU Indications for Procedure: The patient is 43. She has a very unusual situation with bilateral retroperitoneal leiomyoma. She has bilateral hydronephrosis secondary to this. She has failed medical management. She is to go to the [facility] for retroperitoneal surgical removal of these leiomyomas. She comes today for exchange of double-J catheters Description of Procedure: The patient was brought to the operating suite. She's given general anesthesia. She's placed lithotomy position with sterile prep and drape. Cystoscopy Foroblique lens and 22-Tristanian sheath identifies a normal urethra. The bladder mucosa is normal. The ureteral orifices are normal but there bilateral double-J catheters at her encrusted. The left catheters grasped and pulled to the u rethral meatus. After knocking off the encrustation an 035 wires passed through the catheter up into the renal pelvis deemed fluoroscopically. I removed the old catheter inserted new 6 x 24 double-J catheter over the wire that coils in the renal pelvis and in the bladder. I do the same on the right side identically. I inspect the bladder both catheters are coiling nicely in the bladder. The bladder strain the patient's awake and returned recovery in good condition. I will exchange these stents again in 3 months depending on how she does from her retroperitoneal surgery.
[2018-07-26 09:06] VITALS: TEMP 97.3
[2018-07-26 09:18] VITALS: RESP 16
--- NOTE | 2018-07-26 09:31 | FL ---
EXAMINATION TYPE: FL guidance operating room DATE OF EXAM: 07/26/2018 CLINICAL HISTORY: Placement of ureteral stents TECHNIQUE: Fluoroscopy. COMPARISON: None. FINDINGS: Fluoroscopic guidance was provided during procedure performed by Dr. Russell. A total of 9 seconds of fluoroscopic time was utilized during the procedure and 1 spot images was acquired during placement of a ureteral stents. IMPRESSION: As Above.
[2018-07-26] MEDS ORDERED: LACTATED RINGERS 1,000 ML IV ONE (09:41)
[2018-07-26 10:18] VITALS: BP 123/82; PULSE 75
== END 2018-07-26 10:25 | disposition home or self-care (01) ==
LOC: OR 07:26
PROVIDERS: ATTEND Urology
DX: N13.30 Unspecified hydronephrosis (principal); D20.0 Benign neoplasm of soft tissue of retroperitoneum; G89.29 Other chronic pain; J44.9 Chronic obstructive pulmonary disease, unspecified; G47.33 Obstructive sleep apnea (adult) (pediatric); Z99.89 Dependence on other enabling machines and devices; R42 Dizziness and giddiness; H91.90 Unspecified hearing loss, unspecified ear; R11.2 Nausea with vomiting, unspecified; E66.01 Morbid (severe) obesity due to excess calories; Z68.41 Body mass index [BMI] 40.0-44.9, adult; Z90.49 Acquired absence of other specified parts of digestive tract; Z90.710 Acquired absence of both cervix and uterus; Z98.51 Tubal ligation status; Z80.0 Family history of malignant neoplasm of digestive organs; Z79.82 Long term (current) use of aspirin; Z79.891 Long term (current) use of opiate analgesic; Z79.811 Long term (current) use of aromatase inhibitors; Z79.51 Long term (current) use of inhaled steroids; Z79.899 Other long term (current) drug therapy; Z88.1 Allergy status to other antibiotic agents; Z88.5 Allergy status to narcotic agent; Z91.09 Other allergy status, other than to drugs and biological substances
CPT/HCPCS: 52332; C2625; C1769; J2250; J2405; J2001; J3010; J1100; J2704; J0690

== ENCOUNTER → 2018-08-02 | Outpatient (CLI) | payer MEDICAID ==
--- NOTE | 2018-07-25 20:58 | P.GSHP ---
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 She has failed medical management to control the leiomyomas. She comes for stent exchange SHe is going to [place] for retroperitoneal surgery to deal with the leiomyomas. - Constitutional Constitutional: Reports chronic pain - EENT Eyes: denies blurred vision, denies pain Ears, nose, mouth and throat: Denies headache, Denies sore throat - Cardiovascular Cardiovascular: Denies chest pain, Denies shortness of breath - Respiratory Respiratory: Denies cough, Denies 7 - Gastrointestinal Gastrointestinal: Denies abdominal pain, Denies diarrhea, Denies nausea, Denies vomiting - Genitourinary (Female) Genitourinary: Denies dysuria, Denies hematuria - Genitourinary (Male) Genitourinary: Denies dysuria, Denies hematuria - Musculoskeletal Musculoskeletal: Denies myalgias - Integumentary Integumentary: Denies pruritus, Denies rash - Neurological Neurological: Denies numbness, Denies weakness - Psychiatric Psychiatric: Denies anxiety, Denies depression - Endocrine Endocrine: Denies fatigue, Denies weight change Past Medical History Past Medical History: Asthma, Sleep Apnea/CPAP/BIPAP Additional Past Medical History / Comment(s): FAMILY HX COLON CA. USES CPAP, 4- 10. vertigo History of Any Multi-Drug Resistant Organisms: None Reported Past Surgical History: Section, Cholecystectomy, Hysterectomy, Orthopedic Surgery, Tubal Ligation Additional Past Surgical History / Comment(s): LASIK. EXC IMPACTED WISDOM TEETH. RT WRIST GANGLION CYST EXC. RODRIGUEZ KNEE SURG, LT WAS A SCOPE. skin biopsies, fibromas removed from leg and arm Past Anesthesia/Blood Transfusion Reactions: Previous Problems w/ Anesthesia, Family History of Problems w/ Anesthesia, Motion Sickness Additional Past Anesthesia/Blood Transfusion Reaction / Comment(s): "HARD TO AROUSE FROM ANESTHESIA;" FAMILY HX OF SAME. Smoking Status: Never smoker - Past Family History Father Family Medical History: Cancer Mother Family Medical History: Cancer Medications and Allergies Home Medications Medication Instructions Recorded Confirmed Type Citalopram Hydrobromide [CeleXA] 40 mg PO QAM 10/07/16 07/21/18 History Leuprolide Acetate [Lupron Depot] 11.25 mg IM Q90D 12/30/17 07/21/18 History Aspirin EC [Ecotrin Low Dose] 81 mg PO HS 01/26/18 07/21/18 History Calcium Carbonate [Calcium] 600 mg PO DAILY 01/26/18 07/21/18 History Cholecalciferol (Vitamin D3) 10,000 unit PO DAILY 01/26/18 07/21/18 History [Vitamin D3] Cyanocobalamin (Vitamin B-12) 2,500 mcg PO DAILY 01/26/18 07/21/18 History [Vitamin B12] Acetaminophen-Codeine 300-30mg 1 tab PO Q4H PRN 03/13/18 07/21/18 History [Tylenol w/codeine #3] Albuterol Inhaler [Ventolin Hfa 1 - 2 puff INHALATION RT-Q6H PRN 03/13/18 07/21/18 History Inhaler] Anastrozole [Arimidex] 1 mg PO DAILY 03/13/18 07/21/18 History Lidocaine 5% Patch [Lidoderm] 1 patch TOPICAL DAILY 03/13/18 07/21/18 History Meclizine [Antivert] 12.5 mg PO BID PRN 03/13/18 07/21/18 History Ondansetron [Zofran] 4 mg PO Q8HR PRN 03/13/18 07/21/18 History Fluticasone/Salmeterol [Advair 1 each IH DAILY 07/21/18 07/21/18 History 500-50 Diskus] Multivitamins, Thera [Multivitamin 1 tab PO DAILY 07/21/18 07/21/18 History (formulary)] Allergies Allergy/AdvReac Type Severity Reaction Status Date / Time clarithromycin [From Biaxin] Allergy Anaphylaxis Verified 07/21/18 15:02 diphenhydramine Allergy Rash/Hives Verified 07/21/18 15:02 [From Tylenol PM] hydromorphone [From Dilaudid] Allergy Rash/Hives Verified 07/21/18 15:02 minocycline Allergy Rash/Hives Verified 07/21/18 15:02 Surgical - Exam - General well developed, well nourished, no distress - Eyes PERRL - ENT no hearing loss - Neck no masses, trachea midline - Respiratory normal expansion, normal respiratory effort - Cardiovascular Rhythm: regular - Abdomen Abdomen: soft, non tender - Integumentary no growths - Neurologic normal coordination, normal sensation - Musculoskeletal normal gait, normal posture - Psychiatric oriented to time, oriented to person, oriented to place, speech is normal, memory intact Assessment and Plan Assessment: Impression: Bilateral hydronephrosis secondary to diffuse retroperitoneal leiomyomas Plan: cysto with exchange of bilteral double j catheters
--- NOTE | 2018-08-02 12:32 | CT ---
EXAMINATION TYPE: CT ChestAbdPelvis w con DATE OF EXAM: 08/02/2018 COMPARISON: Prior CT 02/22/2018 from outside institution HISTORY: Leiomyomatosis, pre op CT DLP: 1976.4 mGycm Automated exposure control for dose reduction was used. CONTRAST: CT scan of the chest, abdomen and pelvis is performed with Oral Contrast and with IV Contrast, patien t injected with 100 mL of Isovue 300. FINDINGS: LUNGS: The lungs are grossly clear, there is no concerning parenchymal mass or nodule identified. T here is no pleural effusion or pneumothorax seen. The tracheobronchial tree is patent. MEDIASTINUM: There are no greater than 1 cm hilar or mediastinal lymph nodes. No pericardial effusi on is seen. AORTA: No significant abnormality is seen. OTHER: No additional significant abnormality is seen. LIVER/GB: No significant double change is appreciated, low dense foci again noted within the liver st atistically are likely to represent cysts, patient is post cholecystectomy.. PANCREAS: No significant abnormality is seen. SPLEEN: No significant abnormality is seen. ADRENALS: No significant abnormality is seen. KIDNEYS: Double-J ureteral stents are again noted.. REPRODUCTIVE ORGANS: Not seen BOWEL: No significant abnormality is seen. FREE AIR: No Free Air visible. ASCITES: None seen. RETROPERITONEAL ADENOPATHY: Retroperitoneal adenopathy is extensive similar to prior exam, abnormal soft tissue extends into the pelvis as previously seen LYMPH NODES: Extensive abnormal soft tissue is again seen URINARY BLADDER: Mass effect due to compression from patient's abnormal soft tissue within the pelvi s is again seen.. PELVIC ADENOPATHY: Abnormal soft tissue extends throughout the pelvis similar to prior exam. OSSEOUS STRUCTURES: No significant abnormality is seen. IMPRESSION: Extensive abnormal retroperitoneal soft tissue extending into the pelvis is similar to pr evious exam.
== END ==
LOC: RADCTMAIN 08:58
DX: D48.1 Neoplasm of uncertain behavior of connective and other soft tissue (principal); R93.5 Abnormal findings on diagnostic imaging of other abdominal regions, including retroperitoneum
CPT/HCPCS: 71260; 74177; Q9967 ×2

== ENCOUNTER → 2018-10-06 | Outpatient (CLI) | payer MEDICAID ==
--- NOTE | 2018-10-06 11:53 | BD ---
EXAMINATION TYPE: Axial Bone Density DATE OF EXAM: 10/06/2018 COMPARISON: NONE CLINICAL HISTORY: N 89.9 Height: 5 FT 5 1/4 IN Weight: 234 FRAX RISK QUESTIONS: Secondary Osteoporosis: 3. Menopause before 45: YES RISK FACTORS HISTORY OF: Surgery to Spine/Hip(right/left)/Wrist (right/left): GANGLION CYSY REMOVED RT WRIST 1998 Diet low in dairy products/other sources of calcium: Postmenopausal woman: PART HYST 2011 OVARIES REMOVED 2018 MEDICATIONS: Additional Medications: ARIMEDEX,CELEXA, OXYBUTIN Additional History: TUMORS IN LINING OF ABDOMEN BENIGN ALTHOUGH TREATING WITH ARIMEDEX. KIDNEY STENTS BILATERALLY 07/2018 EXAM MEASUREMENTS: Bone mineral densitometry was performed using the [employer] System. Bone mineral density as measured about the Lumbar spine is: ----- L1-L4(G/cm2): 1.231 T Score Values are as follows: ----- L2: 0.8 ----- L3: 0.7 ----- L4: -0.3 ----- L1-L4: 0.4 BASELINE Bone mineral density about the R hip (g/cm2): 1.045 Bone mineral density about the L hip (g/cm2): 1.010 T Score values are as follows: -----R Neck: 0.1 -----L Neck: -0.2 -----R Total: 0.2 -----L Total: 0.0 BASELINE IMPRESSION: Normal (Values between +1 and -1 indicate normal bone mass). Consider repeating this study in 5 year s or sooner if there is some new clinical indication. NOTE: T-SCORE=SD OF THE YOUNG ADULT MEAN.
== END | disposition home or self-care (01) ==
LOC: RADBDWWP 09:51
PROVIDERS: ATTEND Internal Medicine Hematology & Oncology
DX: M89.9 Disorder of bone, unspecified (principal); N95.1 Menopausal and female climacteric states; Z79.890 Hormone replacement therapy
CPT/HCPCS: 77080

== ENCOUNTER → 2018-10-11 | Outpatient (CLI) | payer MEDICAID ==
[2018-10-11 17:21] LABS: Basophils % (A) 1 %; Eosinophils # (A) 0.4 k/uL (0-0.7); Eosinophils % (A) 7 %; HCT 33.9 % (34.0-46.0); HGB 10.7 gm/dL (11.4-16.0); Hypochromasia Slight; Lymphocytes # (A) 1.4 k/uL (1.0-4.8); Lymphocytes % (A) 25 %; MCHC 31.5 g/dL (31.0-37.0); MCV 85.7 fL (80.0-100.0); Mean Platelet Volume 7.4; Monocytes # (A) 0.3 k/uL (0-1.0); Monocytes % (A) 5 %; Neutrophils # (A) 3.4 k/uL (1.3-7.7); Neutrophils % (A) 61 %; Platelet Count 247 k/uL (150-450); RBC 3.96 m/uL (3.80-5.40); RDW 14.5 % (11.5-15.5); WBC 5.6 k/uL (3.8-10.6)
[2018-10-11 17:36] LABS: Appearance,Urine Cloudy (Clear); Bilirubin,Urine Negative (Negative); Blood,Urine Large (Negative); Color,Urine Light Red; Glucose,Urine (UA) Negative (Negative); Ketones,Urine Negative (Negative); Leukocyte Esterase,Urine Large (Negative); Mucus,Urine Occasional /hpf; Nitrite,Urine Negative (Negative); Protein,Urine 2+ (Negative); RBC,Urine >182 /hpf (0-5); Specific Gravity,Urine 1.016 (1.001-1.035); Squamous Epithelial Cell,Urine 5 /hpf (0-4); Urobilinogen,Urine <2.0 mg/dL (<2.0); WBC,Urine 123 /hpf (0-5)
[2018-10-11 17:37] LABS: African American GFR (CKD) >90 (>60 ml/min/1.73 sqM); Anion Gap 6 mmol/L; Blood Urea Nitrogen 17 mg/dL (7-17); Calcium 9.4 mg/dL (8.4-10.2); Carbon Dioxide 28 mmol/L (22-30); Chloride 107 mmol/L (98-107); Glucose 94 mg/dL (74-99); Non-African American GFR(CKD) 84 (>60 ml/min/1.73 sqM); Potassium 4.3 mmol/L (3.5-5.1); Sodium 141 mmol/L (137-145)
== END | disposition home or self-care (01) ==
LOC: LABPAT 16:43
PROVIDERS: ATTEND Urology
DX: Z01.812 Encounter for preprocedural laboratory examination (principal); N13.30 Unspecified hydronephrosis; R31.1 Benign essential microscopic hematuria
CPT/HCPCS: 80048; 81001; 85025; 87086

== ENCOUNTER 2018-10-18 08:24 | Day surgery (SDC) | payer MEDICAID ==
[2018-10-12 10:00] VITALS: BMI 40.1
--- NOTE | 2018-10-17 20:03 | P.GSHP ---
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 She recently was at the [facility] for surgical removal of these She comes cysto with bilateral stent removal with bilateral retrograde pyelograms - Constitutional Constitutional: Denies chills, Denies fever - EENT Eyes: denies blurred vision, denies pain Ears, nose, mouth and throat: Denies headache, Denies sore throat - Cardiovascular Cardiovascular: Denies chest pain, Denies shortness of breath - Respiratory Respiratory: Denies cough, Denies 7 - Gastrointestinal Gastrointestinal: Denies abdominal pain, Denies diarrhea, Denies nausea, Denies vomiting - Genitourinary (Female) Genitourinary: Denies dysuria, Denies hematuria - Genitourinary (Male) Genitourinary: Denies dysuria, Denies hematuria - Musculoskeletal Musculoskeletal: Denies myalgias - Integumentary Integumentary: Denies pruritus, Denies rash - Neurological Neurological: Denies numbness, Denies weakness - Psychiatric Psychiatric: Denies anxiety, Denies depression - Endocrine Endocrine: Denies fatigue, Denies weight change Past Medical History Past Medical History: Asthma, Sleep Apnea/CPAP/BIPAP Additional Past Medical History / Comment(s): USES CPAP, disseminated peritoneal leiomyomatosis, @risk for blood clots in left leg due to removal of vein from recent abdominal surg., has been off of xarelto for a month because was causing bleeding elsewhere History of Any Multi-Drug Resistant Organisms: None Reported Past Surgical History: Section, Cholecystectomy, Hysterectomy, Orthopedic Surgery, Tubal Ligation Additional Past Surgical History / Comment(s): LASIK. EXC IMPACTED WISDOM TEETH. RT WRIST GANGLION CYST EXC. RODRIGUEZ KNEE SURG, ureteral stents, skin biopsies, fibromas removed from leg and arm, abdominal surgery in July to removed multiple large benign tumors Past Anesthesia/Blood Transfusion Reactions: Previous Problems w/ Anesthesia, Family History of Problems w/ Anesthesia, Motion Sickness, Postoperative Nausea & Vomiting (PONV) Additional Past Anesthesia/Blood Transfusion Reaction / Comment(s): "HARD TO AROUSE FROM ANESTHESIA;" FAMILY HX OF SAME, recent blood transfusion in July-no problems Smoking Status: Never smoker - Past Family History Father Family Medical History: Cancer Mother Family Medical History: Cancer Medications and Allergies Home Medications Medication Instructions Recorded Confirmed Type Citalopram Hydrobromide [CeleXA] 40 mg PO QAM 10/07/16 10/12/18 History Cholecalciferol (Vitamin D3) 10,000 unit PO DAILY 01/26/18 10/12/18 History [Vitamin D3] Cyanocobalamin (Vitamin B-12) 2,500 mcg PO DAILY 01/26/18 10/12/18 History [Vitamin B12] Acetaminophen-Codeine 300-30mg 1 tab PO Q4H PRN 03/13/18 10/12/18 History [Tylenol w/codeine #3] Albuterol Inhaler [Ventolin Hfa 1 - 2 puff INHALATION RT-Q6H PRN 03/13/18 10/12/18 History Inhaler] Anastrozole [Arimidex] 1 mg PO DAILY 03/13/18 10/12/18 History Fluticasone/Salmeterol [Advair 1 each IH DAILY PRN 07/21/18 10/12/18 History 500-50 Diskus] Multivitamins, Thera [Multivitamin 1 tab PO DAILY 07/21/18 10/12/18 History (formulary)] Oxybutynin Chloride 5 mg PO TID 10/12/18 10/12/18 History oxyCODONE HCL [OxyIR] 5 mg PO Q6H PRN 10/12/18 10/12/18 History Allergies Allergy/AdvReac Type Severity Reaction Status Date / Time clarithromycin [From Biaxin] Allergy Anaphylaxis Verified 10/12/18 09:12 diphenhydramine Allergy Rash/Hives Verified 10/12/18 09:12 [From Tylenol PM] hydromorphone [From Dilaudid] Allergy Rash/Hives Verified 10/12/18 09:12 minocycline Allergy Rash/Hives Verified 10/12/18 09:12 Surgical - Exam - General well developed, well nourished, no distress - Eyes PERRL - ENT no hearing loss - Neck no masses, trachea midline - Respiratory normal expansion, normal respiratory effort - Cardiovascular Rhythm: regular - Abdomen Abdomen: soft, non tender - Genitourinary normal external genitalia - Integumentary no rash, no growths - Neurologic normal coordination, normal sensation - Musculoskeletal normal gait, normal posture - Psychiatric oriented to time, oriented to person, oriented to place, speech is normal, memory intact Assessment and Plan Assessment: Impression: Bilateral retroperitoneal leiomyomatosis s/p surgery Plan: cysto with bilateral stent removal with bilateral retrograde pyelograms
[~2018-10-18 08:24] MED LIST changes: +AMPICILLIN 1,000 MG in SODIUM CHLORIDE 0.9% 50 ML IVPB ONE; +DEXAMETHASONE SOD PHOSPHATE 10 MG/ML 1 ML VIAL IV ONE; +GENTAMICIN 110 MG in SODIUM CHLORIDE 0.9% 100 ML IVPB ONE; -HYDROmorphone 0.5 MG/0.5 ML SYRINGE IVP PRN; +LIDOCAINE 1% 20 ML VIAL (10MG/ML) FOR IV START INTRADERMA PRN; +MIDAZOLAM 2 MG/2 ML VIAL IV PRN; +ONDANSETRON 4 MG/2 ML VIAL IVP ONE; +fentaNYL (PF) 50 MCG/ML 2 ML AMP IV PRN
[2018-10-18] MEDS ORDERED: SCOPOLAMINE 1.5MG/72HR PATCH TRANSDERM ONE (09:20)
[2018-10-18 09:25] VITALS: RESP 16
--- NOTE | 2018-10-18 09:40 | XR ---
EXAMINATION TYPE: XR KUB DATE OF EXAM: 10/18/2018 CLINICAL DATA: 43-year-old female presurgical evaluation for stent removal, [facility] COMPARISON: 11/25/2017 FINDINGS: Surgical clips in the pelvis. Bilateral ureteral stents are demonstrated. Cholecystectomy clips. No suspicious calcification identi fied. IMPRESSION: Bilateral ureteral stents. No suspicious calcification identified.
[2018-10-18] MEDS ORDERED: fentaNYL (PF) 50 MCG/ML 2 ML AMP ONE (10:15)
[2018-10-18] MEDS ORDERED: PROPOFOL 10 MG/ML 20 ML VIAL IV ONE (10:15)
[2018-10-18] MEDS ORDERED: SUCCINYLCHOLINE CHLORIDE 100 MG/5 ML SYR IV ONE (10:15)
[2018-10-18] MEDS ORDERED: LIDOCAINE 1% INJ 10MG/ML (20 ML MDV) ONE (10:15)
[2018-10-18] MEDS ORDERED: MIDAZOLAM 2 MG/2 ML VIAL ONE (10:15)
[2018-10-18] MEDS ORDERED: LACTATED RINGERS 1,000 ML IV ONE (10:41)
[2018-10-18] MEDS ORDERED: IOPAMIDOL-370 50ML BTL MISCELLANE ONE ×2 (10:42)
--- NOTE | 2018-10-18 10:57 | P.OP ---
Date of Procedure: 10/18/18 Preoperative Diagnosis: Bilateral hydronephrosis due to retroperitoneal leiomyoma (resected) Postoperative Diagnosis: Same Procedure(s) Performed: Cystoscopy, removal bilateral double-J catheters, bilateral retrograde pyelograms Anesthesia: CATRACHITO Surgeon: Toby Russell Pathology: none sent Condition: stable Disposition: PACU Indications for Procedure: The patient is 43. She had large bilateral retroperitoneal leiomyoma set him obstructed her ureters. She had double-J catheters. Last spring at the [facility] she had a retroperitoneal dissection of these leiomyomas. Her sharepoint designer developer is cleared her to have the stents removed. Description of Procedure: Patient brought to the operating suite. She's given general anesthesia. She's placed lithotomy position and sterile prep and drape. Cystoscopy Foroblique lens and 22-Chadian sheath identifies bilateral catheters. Bilateral edema at the ureteral orifice is otherwise the rest the bladder is unremarkable. Catheters grasped and removed the ureteral orifice. With a 10-Chadian cone-tip catheter bilateral retrograde pyelograms were performed. The ureters are not dilated. There is slight narrowing in the upper ureter on the right. Urine seems to drain freely bilaterally however. I elect not to leave a double-J catheter. The patient will be discharged home upon recovery. We'll see in the office in a week and repeat ultrasounds in a month.
[2018-10-18 11:17] VITALS: TEMP 96.9
[2018-10-18 12:19] VITALS: BP 105/58; PULSE 76
--- NOTE | 2018-10-18 18:01 | FL ---
EXAMINATION TYPE: FL urography retrograde DATE OF EXAM: 10/18/2018 FLUOROSCOPY Fluoroscopy time of 1 minute 2 seconds was used during bilateral stent removal. 2 image/s document/s the procedure.
== END 2018-10-18 12:36 | disposition home or self-care (01) ==
LOC: OR 08:24
PROVIDERS: ATTEND Urology
DX: N13.1 Hydronephrosis with ureteral stricture, not elsewhere classified (principal); J45.909 Unspecified asthma, uncomplicated; F32.9 Major depressive disorder, single episode, unspecified; G47.33 Obstructive sleep apnea (adult) (pediatric); Z99.89 Dependence on other enabling machines and devices; Z90.710 Acquired absence of both cervix and uterus; Z79.899 Other long term (current) drug therapy; Z79.811 Long term (current) use of aromatase inhibitors; Z88.1 Allergy status to other antibiotic agents; Z88.5 Allergy status to narcotic agent
CPT/HCPCS: 74420; 74018; 52005; C1758; C1769; J2250; J1100; J2405; J2001; J3010; J1580; J0290; J0330; J2704; Q9967

== ENCOUNTER → 2018-12-06 | Outpatient (CLI) | payer MEDICAID ==
--- NOTE | 2018-12-06 16:02 | US ---
EXAMINATION TYPE: US kidneys/renal and bladder DATE OF EXAM: 12/06/2018 COMPARISON: US & CT CLINICAL HISTORY: N13.30 HX OF HYDRONEPHROSIS. F/U bilateral hydro, pt recently had bilateral uretera l stents removed, surgery in July to remove multiple pelvic masses EXAM MEASUREMENTS: Right Kidney: 9.4 x 4.8 x 4.8 cm Left Kidney: 9.7 x 4.8 x 4.4 cm Right Kidney: Appeared wnl, hydro appears resolved Left Kidney: Appeared wnl, hydro appears resolved Bladder: wnl Bilateral Jets seen: Yes There is no evidence for hydronephrosis at this point in time. No nephrolithiasis is seen. No víctor s are identified. The urinary bladder is anechoic. Bilateral ureteral jets are seen. Incidental finding simple cyst right lobe of liver= 2.5 x 1.9 cm IMPRESSION: 1. Normal renal ultrasound. 2. Hepatic cyst.
== END ==
LOC: RADUSWWP 14:03
PROVIDERS: ATTEND Urology
DX: N13.30 Unspecified hydronephrosis (principal)
CPT/HCPCS: 76770

== ENCOUNTER → 2019-02-02 | Outpatient (CLI) | payer MEDICAID ==
--- NOTE | 2019-02-02 09:55 | US ---
EXAMINATION TYPE: US thyroid st tissue head/neck DATE OF EXAM: 02/02/2019 COMPARISON: NONE CLINICAL HISTORY: E04.9 thyroid nodule. Pt states nodule seen on left lobe on outside exam GLAND SIZE: Right Lobe: 4.5 x 1.6 x 1.2 cm Overall Parenchyma: homogenous Left Lobe: 3.9 x 1.5 x 1.4 cm Overall Parenchyma: homogeneous Isthmus Thickness: 0.2 cm NODULES LEFT: # of nodules measured on left: 1 1. 1.5 X 0.9 x 1.2 cm hypoechoic mixed nodule at the upper pole with well-defined margins; This no dule is wider than tall and shows intranodular vascularity. Prior size: No prior here Bilateral neck scanned, no evidence of lymphadenopathy. Nodule left lobe > 1 cm. IMPRESSION: Solitary 1.5 cm left thyroid nodule has solid components and is hypervascular. This is ashley rderline size for fine-needle aspiration. Consideration could be given to fine-needle aspiration or s hort-term follow-up in thyroid ultrasound 6-12 months.
== END | disposition home or self-care (01) ==
LOC: RADUSWWP 08:15
PROVIDERS: ATTEND Family Medicine
DX: E04.1 Nontoxic single thyroid nodule (principal)
CPT/HCPCS: 76536

== ENCOUNTER 2019-02-20 08:53 | Day surgery (SDC) | payer MEDICAID ==
[2019-02-20 09:28] VITALS: RESP 14; TEMP 98.5
--- NOTE | 2019-02-20 10:11 | US ---
ULTRASOUND GUIDED FNA THYROID BIOPSY: CLINICAL HISTORY: Left thyroid nodule FINDINGS: The procedure was explained to the patient. The risks, complications, benefits and alternatives were discussed and any questions were answered. Informed consent was obtained. Patient was placed supin e on the ultrasound table and prepped and draped in the usual sterile fashion. Utilizing a 25 gauge needle, five passes were made into the requested left thyroid nodule. Patient was stable throughout the procedure. Pathology is pending. All elements of maximal barrier technique were utilized. IMPRESSION: 1. Successful ultrasound guided FNA thyroid biopsy.
[2019-02-20 10:33] VITALS: BP 95/68; PULSE 70
== END 2019-02-20 10:10 | disposition home or self-care (01) ==
LOC: RADPROMAIN 08:53
PROVIDERS: ATTEND Radiology Radiation Oncology
DX: E04.1 Nontoxic single thyroid nodule (principal)
CPT/HCPCS: 10005; 88173; 88305

== ENCOUNTER → 2019-03-02 | Outpatient (CLI) | payer MEDICAID ==
--- NOTE | 2019-03-03 15:51 | CT ---
EXAMINATION TYPE: CT abdomen pelvis w con DATE OF EXAM: 03/02/2019 HISTORY: Follow up for Leiomyomatosis CT DLP: 1590mGycm Automated Exposure Control for Dose Reduction was Utilized. CONTRAST: CT scan of the abdomen and pelvis is performed with IV Contrast, patient injected with 100 mL of Isov ue 300. COMPARISON: 08/02/2018 FINDINGS: LUNG BASES: No significant abnormality is appreciated. LIVER/GB: There are multiple hepatic cysts and other hepatic lesions that are too small to accurately characterize. There are questionable hyperdense lesions in the inferior right hepatic lobe measuring 1 cm and 5 mm that do not appear contiguous with the portal vein but 2 demonstrate similar enhanceme nt of the portal vein. Cholecystectomy has been performed. PANCREAS: No significant abnormality is seen. SPLEEN: No splenomegaly. ADRENALS: No significant abnormality is seen. KIDNEYS: There is been removal of the ureteral stents. The kidneys enhance symmetrically without hydr onephrosis. Probable punctate left lower pole 2 mm nonobstructing renal calculus. BOWEL: The cecum is displaced slightly towards the midline without volvulus. No dilated large or smal l bowel. Mild degree colonic fecal stasis. UTERUS/ADNEXA: There is been surgical removal of both the uterus and the numerous retroperitoneal sof t tissue densities in both the abdomen and pelvis. No abnormal soft tissue density remains in the ret roperitoneum. LYMPH NODES: No greater than 1cm abdominal or pelvic lymph nodes are appreciated. OSSEOUS STRUCTURES: No significant abnormality is seen. OTHER : Ventral diastases recti is seen with postsurgical changes of the subcutaneous tissues of the anterior abdominal wall. IMPRESSION: 1. Surgical removal of the pelvic and abdominal retroperitoneal numerous soft tissue masses. No soft tissue nodule or adenopathy remaining. 2. There are 2 questionable hepatic lesions of the inferior right hepatic lobe versus pseudonodules. MRI abdomen is recommended to exclude hepatic lesion. Multiple benign hepatic cysts are also seen. 3. Probable punctate nonobstructing left lower pole renal calculus.
== END | disposition home or self-care (01) ==
LOC: RADCTMAIN 15:56
DX: K76.89 Other specified diseases of liver (principal); D48.1 Neoplasm of uncertain behavior of connective and other soft tissue
CPT/HCPCS: 74177; Q9967

== ENCOUNTER → 2019-03-13 | Outpatient (CLI) | payer MEDICAID ==
--- NOTE | 2019-03-13 14:01 | MM ---
Reason for exam: screening (asymptomatic). Last mammogram was performed 1 year and 1 month ago. History: Patient is postmenopausal and history of other cancer. Family history of breast cancer in maternal grandmother at age 90. Ultrasound-guided core biopsy of the right breast. Taking other hormone. Physical Findings: A clinical breast exam by your physician is recommended on an annual basis and results should be correlated with mammographic findings. MG 3D Screening Mammo W/Cad Bilateral CC and MLO view(s) were taken. Prior study comparison: February 15, 2018, bilateral MG 3d screening mammo w/cad. February 01, 2017, bilateral MG 3d screening mammo w/cad. There are scattered fibroglandular densities. There are benign appearing round calcifications bilaterally. Previous mammotome biopsy in the right breast. There is chronic nodularity in the right breast. There is no discrete abnormality. ASSESSMENT: Benign, BI-RAD 2 RECOMMENDATION: Routine screening mammogram of both breasts in 1 year.
== END ==
LOC: RADMAMWWP 07:49
PROVIDERS: ATTEND Family Medicine
DX: Z12.31 Encounter for screening mammogram for malignant neoplasm of breast (principal)
CPT/HCPCS: 77063; 77067

== ENCOUNTER → 2019-08-07 | Outpatient (CLI) | payer MEDICAID ==
--- NOTE | 2019-08-07 14:21 | CT ---
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 DLP: 1510 mGycm, Automated exposure control for dose reduction was used. CONTRAST: 100 mL of Isovue M300. Study performed with Oral Contrast TECHNIQUE: Axial images were obtained from above the diaphragm to the pubic rami in the axial plane a t 5 mm thick sections. Reconstructed images are reviewed on the computer in the coronal plane. FINDINGS: Limited CT sections are obtained the lung bases. The lung bases are clear. CT ABDOMEN: Liver: There is a cyst within the medial right lobe liver measuring 1.5 cm. Additional smaller right lobe liver cysts are present. Spleen: Normal Pancreas: Normal Adrenal glands: The adrenal glands are normal. Gallbladder: Surgically absent Kidneys: No masses are evident. Mild right hydronephrosis. Mild right hydroureter is evident. There i s a 0.2 cm calcification which may be along the anterior wall of the ureter. This could be vascular c alcification. Series 3 image 54. Hydroureter is not identified more inferiorly. Phleboliths are suspe cted within the pelvis. Distal ureteral stones are not entirely excluded No cysts are present. Delay ed images were obtained through the kidneys, which remain unremarkable. Aorta: Vascular calcification is within the aorta. Inferior vena cava: Normal. CT PELVIS: Loops of bowel within the abdomen and pelvis are normal. There are loops of bowel lacking oral co ntrast or incompletely distended limiting bowel evaluation. Appendix: Normal as visualized. Urinary bladder: Normal. Genitourinary structures: Uterus and ovaries are not identified. Osseous structures: No suspicious lytic or sclerotic lesions. IMPRESSIONS: 1. Appears to be mild right hydronephrosis and hydroureter. Punctate nonobstructing stone may be wit hin the mid right ureter. Distal hydroureter is evident. No additional areas suspicious for renal or ureteral stones are evident.
== END | disposition home or self-care (01) ==
LOC: RADCTMAIN 10:33
PROVIDERS: ATTEND Surgery Surgical Oncology
DX: N13.30 Unspecified hydronephrosis (principal); C78.6 Secondary malignant neoplasm of retroperitoneum and peritoneum; C80.1 Malignant (primary) neoplasm, unspecified
CPT/HCPCS: 74177; Q9967 ×2

== ENCOUNTER → 2019-08-27 | Outpatient (CLI) | payer MEDICAID ==
[2019-08-27 11:00] LABS: Basophils % (A) 1 %; Eosinophils # (A) 0.4 k/uL (0-0.7); Eosinophils % (A) 8 %; HCT 37.4 % (34.0-46.0); HGB 12.3 gm/dL (11.4-16.0); Lymphocytes # (A) 1.3 k/uL (1.0-4.8); Lymphocytes % (A) 24 %; MCH 31.1 pg (25.0-35.0); MCHC 32.9 g/dL (31.0-37.0); MCV 94.5 fL (80.0-100.0); Mean Platelet Volume 8.1; Monocytes # (A) 0.3 k/uL (0-1.0); Monocytes % (A) 5 %; Neutrophils # (A) 3.3 k/uL (1.3-7.7); Neutrophils % (A) 62 %; Platelet Count 199 k/uL (150-450); RBC 3.95 m/uL (3.80-5.40); WBC 5.3 k/uL (3.8-10.6)
[2019-08-27 16:17] LABS: African American GFR (CKD) 121.3 (60.0-200.0); Albumin/Globulin Ratio 1.9 (1.60-3.17); Anion Gap 4.3 mmol/L (4.00-12.00); BUN/Creat Ratio 27.14 Ratio (12.00-20.00); C Reactive Protein 0.7 mg/dL (0.0-0.8); Calcium 9.5 mg/dL (8.7-10.3); Carbon Dioxide 29.7 mmol/L (21.6-31.8); Globulin 2.1 g/dL (1.6-3.3); Magnesium 2.1 mg/dL (1.5-2.4); Non-African American GFR(CKD) 104.6 (60.0-200.0); Phosphorus 3.1 mg/dL (2.4-5.1); Potassium 4.5 mmol/L (3.5-5.5); Total Bilirubin 0.2 mg/dL (0.3-1.2); Total Protein 6.1 g/dL (6.2-8.2)
== END | disposition home or self-care (01) ==
LOC: LABWHC1 09:35
PROVIDERS: ATTEND Physician Assistant
DX: C78.6 Secondary malignant neoplasm of retroperitoneum and peritoneum (principal); C80.1 Malignant (primary) neoplasm, unspecified
CPT/HCPCS: 36415; 80053; 83735; 84100; 84134; 85025; 86140

== ENCOUNTER → 2019-11-09 | Outpatient (CLI) | payer MEDICAID ==
--- NOTE | 2019-11-09 14:32 | US ---
EXAMINATION TYPE: US abdomen complete DATE OF EXAM: 11/09/2019 COMPARISON: CT 08/07/2019 CLINICAL HISTORY: R10.84 ABD PAIN. Patient had surgery for disseminated peritoneal leiomyomatosis Jul, patient has large scar down her abd and feels a change in it the past 3 weeks, feels like it's bulging, EXAM MEASUREMENTS: Liver Length: 13.4 cm Gallbladder Wall: Surgically absent CBD: 0.5 cm Spleen: 11.8 cm Right Kidney: 8.0 x 5.1 x 5.0 cm Left Kidney: 9.3 x 4.8 x 5.3 cm *bowel gas obscured imaging along with large abd surgical scar Pancreas: Obscured by bowel gas Liver: 2 cystic areas seen, posterior right lobe = 2.4cm, anterior right lobe = 1.6 Gallbladder: Surgically absent Evidence for sonographic Bolaños's sign: no CBD: wnl Spleen: wnl Right Kidney: wnl Left Kidney: wnl Upper IVC: wnl Abd Aorta: wnl no obvious herniation seen along surgical scar on abdomen. You can see increased peristalsing when patient valsalva with no herniation, umbilical hernia seen on CT is not seen on today's ultrasound The liver is homogenous. The intrahepatic portion of the IVC and proximal abdominal aorta are within normal limits. There is no evidence of cholelithiasis. Common bile duct is unremarkable. The visu alized portions of the pancreas are homogenous. The spleen is unremarkable. Kidneys are symmetric a nd free of hydronephrosis, cortical medullary differentiation is maintained. No renal lesions are se en. IMPRESSION: No significant abnormality. Some limitations are present exam. Hepatic cysts. Additional findings above.
== END | disposition home or self-care (01) ==
LOC: RADUSWWP 08:11
PROVIDERS: ATTEND Family Medicine
DX: K76.89 Other specified diseases of liver (principal); L90.5 Scar conditions and fibrosis of skin; Z90.49 Acquired absence of other specified parts of digestive tract
CPT/HCPCS: 76700

== ENCOUNTER → 2019-12-21 | Outpatient (CLI) | payer MEDICAID ==
--- NOTE | 2019-12-22 17:04 | CT ---
EXAMINATION TYPE: CT abdomen pelvis w con DATE OF EXAM: 12/21/2019 COMPARISON: 08/07/2019 INDICATION: f/u hernia DLP: 1505 mGycm, Automated exposure control for dose reduction was used. CONTRAST: 100 mL of Isovue 300. Study performed with Oral Contrast TECHNIQUE: Axial images were obtained from above the diaphragm to the pubic rami in the axial plane a t 5 mm thick sections. Reconstructed images are reviewed on the computer in the coronal plane. FINDINGS: Limited CT sections are obtained the lung bases. The lung bases are clear. CT ABDOMEN: There is a broad-based anterior abdominal wall hernia with an opening estimated at 8.9 cm . No obstructed small bowel loops are evident. Contrast passes through this region. Liver: Multiple hepatic cysts are present. Spleen: Normal Pancreas: Normal Adrenal glands: The adrenal glands are normal. Gallbladder: Surgically absent Kidneys: No masses are evident. No hydronephrosis is present. No cysts are present. Delayed images were obtained through the kidneys, which remain unremarkable. Aorta: Normal Inferior vena cava: Normal. CT PELVIS: Loops of bowel within the abdomen and pelvis are normal. There are loops of bowel which are incom pletely distended or lack oral contrast limiting their evaluation. Appendix: Normal as visualized. Urinary bladder: Normal. Genitourinary structures: Osseous structures: No suspicious lytic or sclerotic lesions. IMPRESSIONS: 1. Large anterior abdominal wall hernia without evidence of obstruction. This contains nondilated lo ops of bowel with contrast passing through this region.
== END | disposition home or self-care (01) ==
LOC: RADCTMAIN 16:32
PROVIDERS: ATTEND Family Medicine
DX: K43.9 Ventral hernia without obstruction or gangrene (principal); D20.1 Benign neoplasm of soft tissue of peritoneum
CPT/HCPCS: 74177; Q9967

== ENCOUNTER → 2020-03-18 | Outpatient (CLI) | payer MEDICAID ==
--- NOTE | 2020-03-19 09:49 | MM ---
Reason for exam: screening (asymptomatic). Last mammogram was performed 1 year ago. History: Patient is postmenopausal and history of other cancer. Family history of breast cancer in maternal grandmother at age 90. Ultrasound-guided core biopsy of the right breast. Took hormonal contraceptives beginning at age 14. Taking other hormone for 2 years. Physical Findings: A clinical breast exam by your physician is recommended on an annual basis and results should be correlated with mammographic findings. MG 3D Screening Mammo W/Cad Bilateral CC and MLO view(s) were taken. Prior study comparison: March 13, 2019, bilateral MG 3d screening mammo w/cad. February 15, 2018, bilateral MG 3d screening mammo w/cad. There are scattered fibroglandular densities. There are benign appearing round calcifications bilaterally. Previous mammotome biopsy in the right breast at chronic nodularity. There is no discrete abnormality. ASSESSMENT: Benign, BI-RAD 2 RECOMMENDATION: Routine screening mammogram of both breasts in 1 year.
== END | disposition home or self-care (01) ==
LOC: RADMAMWWP 07:32
PROVIDERS: ATTEND Family Medicine
DX: Z12.31 Encounter for screening mammogram for malignant neoplasm of breast (principal)
CPT/HCPCS: 77063; 77067

== ENCOUNTER → 2020-04-02 | Outpatient (CLI) | payer MEDICAID ==
[2020-04-02 11:23] LABS: T4, Free (Free Thyroxine) 0.98 ng/dL (0.78-2.19)
--- NOTE | 2020-04-02 11:24 | US ---
EXAMINATION TYPE: US thyroid st tissue head/neck DATE OF EXAM: 04/02/2020 COMPARISON: 02/02/2019 CLINICAL HISTORY: 45-year-old female E04.1,E06.3. Left thyroid nodule with prior FNA here. TECHNIQUE: Multiple sonographic images of the thyroid gland are obtained. FINDINGS: GLAND SIZE: Right Lobe: 5.2 x 1.5 x 1.1 cm Overall Parenchyma: homogenous Left Lobe: 4.1 x 1.6 x 1.2 cm Overall Parenchyma: homogeneous Isthmus Thickness: 0.2 cm NODULES RIGHT: # of nodules measured on right: 0 LEFT: # of nodules measured on left: 1 1. 1.7 X 1.5 x 1.0 cm mixed cystic and solid, nodule mid pole, which is wider than tall, with mari h margins, without echogenic foci. Increasing solid component. Prior size: 1.5 x 0.9 x 1.2 cm ISTHMUS: # of nodules measured in the isthmus: 0 Bilateral neck scanned: inferior to right thyroid is oval hypoechoic nodule = 0.5 x 0.5x 0.3cm, not c learly seen previously. IMPRESSION: 1. Enlarging, mixed, but primarily solid nodule on the left shows slight increasing size (17 x 15 mm versus 15 x 12 mm, previously). We note that this was previously biopsied. Continued follow-up as ind icated. 2. Additional follow-up of a new 5 mm solid nodule either arising from or located just below the left lobe of the thyroid gland.
== END | disposition home or self-care (01) ==
LOC: RADUSWWP 09:42
PROVIDERS: ATTEND Internal Medicine Endocrinology, Diabetes & Metabolism
DX: E04.2 Nontoxic multinodular goiter (principal); E06.3 Autoimmune thyroiditis; E04.1 Nontoxic single thyroid nodule; E78.2 Mixed hyperlipidemia; E66.8 Other obesity; E88.81 Metabolic syndrome and other insulin resistance
CPT/HCPCS: 76536; 84439; 84443

== ENCOUNTER 2020-06-16 05:49 | Day surgery (SDC) | payer MEDICAID ==
[2020-06-13 09:42] VITALS: BMI 44.9
[2020-06-16] MEDS ORDERED: SCOPOLAMINE 1.5MG/72HR PATCH TRANSDERM ONE (05:52)
[2020-06-16] MEDS ORDERED: LIDOCAINE 1% (10MG/ML) FOR IV START INTRADERMA PRN (05:52)
[2020-06-16] MEDS ORDERED: ONDANSETRON 4 MG/2 ML VIAL IVP ONE (05:52)
[2020-06-16] MEDS ORDERED: DEXAMETHASONE SOD PHOSPHATE 4 MG/ML 1 ML VIAL IV ONE (05:52)
[2020-06-16] MEDS: LACTATED RINGERS 1,000 ML IV SCH ×2 (06:45→07:07)
[2020-06-16] MEDS ORDERED: ROCURONIUM 10 MG/ML (5 ML VIAL) IV ONE (07:03)
[2020-06-16] MEDS ORDERED: MIDAZOLAM 2 MG/2 ML VIAL ONE (07:03)
[2020-06-16] MEDS ORDERED: NEOSTIGMINE 1 MG/ML 10 ML VIAL ONE (07:03)
[2020-06-16] MEDS ORDERED: GLYCOPYRROLATE 0.2 MG/ML 2 ML VIAL ONE (07:03)
[2020-06-16] MEDS ORDERED: PROPOFOL 10 MG/ML 20 ML VIAL IV ONE (07:03)
[2020-06-16] MEDS ORDERED: DEXAMETHASONE SOD PHOSPHATE 10 MG/ML 1 ML VIAL ONE (07:03)
[2020-06-16] MEDS ORDERED: fentaNYL (PF) 50 MCG/ML 2 ML AMP ONE (07:03)
[2020-06-16] MEDS: ceFAZolin 3 GM in SODIUM CHLORIDE 0.9% 100 ML IVPB PRN ×2 (07:08→08:27)
[2020-06-16] MEDS ORDERED: COCAINE HCL 4 ML SOLUTION TOPICAL PRN (07:25)
[2020-06-16] MEDS: metroNIDAZOLE-NS PMX 500 MG in SALINE 1 100ML.BAG IVPB PRN ×2 (07:30→08:27)
[2020-06-16] MEDS ORDERED: LIDOCAINE 2%-EPI 1:100,000 20 ML VIAL SUBMUCOSAL ONE ×2 (08:23→08:25)
[2020-06-16] MEDS ORDERED: LACTATED RINGERS 1,000 ML IV ONE (09:24)
[2020-06-16 10:06] VITALS: TEMP 97.5
[2020-06-16 10:59] VITALS: RESP 16
[2020-06-16 11:55] VITALS: BP 120/80; PULSE 75
--- NOTE | 2020-06-16 23:29 | OP ---
OPERATIVE REPORT DATE OF PROCEDURE: 06/16/2020 PREOPERATIVE DIAGNOSES: 1. Right and left mandibular hung. 2. Ankyloglossia. POSTOPERATIVE DIAGNOSES: 1. Right and left mandibular hung. 2. Ankyloglossia. PROCEDURE: 1. Removal of right and left mandibular hung. 2. Lingual frenectomy. SURGEON: Dr. Petersen. ANESTHESIA: General via right nasal endotracheal intubation. ESTIMATED BLOOD LOSS: 20 mL SPECIMENS: None. DRAINS: None. COMPLICATIONS: None. FLUIDS: Crystalloid. INDICATIONS FOR PROCEDURE: The patient is a 45-year-old female who was referred by her general dentist for evaluation of large mandibular hung. She states that she is having pain in the region and the tongue is limited in movement and is having difficulty in swallowing and speech. She will now undergo removal of the mandibular hung in the OR setting. The risks, benefits and alternatives of the procedure were reviewed with the patient at length and all of her questions answered to her satisfaction. PROCEDURE DESCRIPTION: The patient was taken to the operating room and placed on the operating table in the supine position. Next, the patient was intubated using an awake endoscopic technique through the right naris. After the tube was secured in the proper position, a general plane of anesthesia was then maintained throughout the operative course. The nasal endotracheal tube was stabilized in position utilizing 2-0 nylon through the columella. The surgeon then approached the operative field. A throat pack was placed, notifying both Nursing and Anesthesia. A bite block was placed and a lingual frenectomy was performed with sharp dissection. Cautery was used to obtain hemostasis, and 3-0 chromic gut in an interrupted manner was used to close the wound primarily. Attention was then directed to the left mandibular hung, where a circular incision extending from the distal of tooth #18 to the mesial of tooth #22 with an anterior release was used to expose the mandibular torus. The torus was then scored utilizing a bur, and then a chisel and mallet technique was utilized to deliver the torus. The lingual aspect of the mandible was then smoothed off with a bur and a reduction bur. Irrigation of the wound followed with normal saline and the flap was reapproximated and sutured into position with 3-0 chromic gut. The excess tissue was plicated utilizing 3- 0 chromic gut to minimize the space. Attention was then directed to the right mandibular torus, where a similar technique was utilized. Hemostasis was observed. The throat pack was removed, notifying both Nursing and Anesthesia. The patient was then allowed to wake up and extubated when she was breathing spontaneously. The columellar suture was removed and the tube was also removed. The patient tolerated the procedure well without complications. The patient was then transferred to the recovery room breathing spontaneously and hemodynamically stable. MMODL / IJN: [id number] /
== END 2020-06-16 12:40 | disposition home or self-care (01) ==
LOC: OR 05:49
PROVIDERS: ATTEND Dentist Oral and Maxillofacial Surgery
DX: Q38.1 Ankyloglossia (principal); M27.0 Developmental disorders of jaws; F17.200 Nicotine dependence, unspecified, uncomplicated; G47.33 Obstructive sleep apnea (adult) (pediatric); J45.909 Unspecified asthma, uncomplicated; Z90.49 Acquired absence of other specified parts of digestive tract; Z98.890 Other specified postprocedural states; Z79.811 Long term (current) use of aromatase inhibitors; Z79.51 Long term (current) use of inhaled steroids; Z79.82 Long term (current) use of aspirin; Z79.899 Other long term (current) drug therapy; Z88.1 Allergy status to other antibiotic agents; Z88.5 Allergy status to narcotic agent; Z88.8 Allergy status to other drugs, medicaments and biological substances
CPT/HCPCS: 21031; 41115; J2250; J1100 ×2; J2710; J0690; J2405; J3010; J2704

== ENCOUNTER → 2020-08-06 | Outpatient (CLI) | payer BC ==
--- NOTE | 2020-08-06 09:47 | BMR ---
EXAMINATION TYPE: MR breast BILAT wo/w con DATE OF EXAM: 08/06/2020 COMPARISON: Prior 3-D mammogram March 18, [address] chest abdomen and pelvis August 02, 2018 HISTORY: Carries genetic marker, family hx, dense tissue TECHNIQUE: A series of fat and water weighted images in the long and short axis views of both breasts are obtained in conjunction with dynamic contrast MRI with subtraction technique. The patient was i njected with 12 mL intravenous Gadavist gadolinium contrast. Three-dimensional and additional postp rocessing imaging is created on independent workstation and reviewed during official interpretation o f this study. FINDINGS: Scattered fibroglandular tissue bilaterally is redemonstrated. Coronal T2-weighted images s how benign appearing bilateral axillary lymph nodes. T2-weighted images show no significant focal flu id collection or cystic change. Delayed dynamic postcontrast imaging shows no suspicious internal mert jaime adenopathy. Postcontrast imaging shows minimal background enhancement. There is no abnormal skin thickening bilaterally. No suspicious enhancement or enhancing masses ident ified bilaterally. The chest wall is intact. Artifact from biopsy clip noted in the right breast ante rior slightly upper medial aspect seen image 16 series 301. There is incidental 1.1 cm thin-walled be nign cyst in the right hepatic dome redemonstrated image 2 series 301. IMPRESSION: No MRI evidence for invasive malignancy in either breast. BI-RADS 2 benign findings right breast. BI-RADS 1 negative left breast. Recommendation: Patient is due for bilateral breast mammogram February 2021 to be back on annual sched ule. Consider annual MRI surveillance.
== END | disposition home or self-care (01) ==
LOC: RADMRIMAIN 07:09
PROVIDERS: ATTEND Internal Medicine Hematology & Oncology
DX: R92.2 Inconclusive mammogram (principal); Z80.3 Family history of malignant neoplasm of breast
CPT/HCPCS: 77049; C8937; A9585

== ENCOUNTER → 2020-09-29 | Outpatient (CLI) | payer BC ==
[2020-09-29 10:06] LABS: T4, Free (Free Thyroxine) 0.96 ng/dL (0.78-2.19)
--- NOTE | 2020-09-29 12:51 | US ---
EXAMINATION TYPE: US thyroid st tissue head/neck DATE OF EXAM: 09/29/2020 COMPARISON: US 2020 CLINICAL HISTORY: D20.1 Benign neoplasm of soft tissue of peritoneum. Thyroid nodule, history of thyr oid FNA GLAND SIZE: Right Lobe: 4.6 x 1.5 x 1.8 cm Overall Parenchyma: homogenous Left Lobe: 4.1 x 1.3 x 1.6 cm Overall Parenchyma: homogeneous Isthmus Thickness: 0.3 cm NODULES RIGHT: # of nodules measured on right: 0 LEFT: # of nodules measured on left: 1 1. 1.4 X 1.0 x 1.4 cm, mid, mixed cystic and solid, hypoechoic nodule, which is wider than tall, wi th smooth margins, without echogenic foci. Prior size: 1.7 x 1.5 x 1.0 cm ISTHMUS: # of nodules measured in the isthmus: 0 Bilateral neck scanned, no evidence of lymphadenopathy. IMPRESSION: Mildly suspicious nodule. No enlargement over the interval is evident. 2017 ACR TI-RADS LEVEL: TR-RADS 3 - Mildly Suspicious: Follow if > 1.5 cm, FNA if > 2.5 cm *Highest TI-RADS level nodule reported
== END | disposition home or self-care (01) ==
LOC: RADUSWWP 07:49
PROVIDERS: ATTEND Internal Medicine Endocrinology, Diabetes & Metabolism
DX: D20.1 Benign neoplasm of soft tissue of peritoneum (principal); E04.1 Nontoxic single thyroid nodule
CPT/HCPCS: 36415; 76536; 84439; 84443

== ENCOUNTER → 2020-11-22 | Outpatient (CLI) | payer BC ==
[2020-11-22 22:09] LABS: LDL Cholesterol,Calculated 90.8 mg/dL (0.0-131.0); VLDL Calculation 37.4 mg/dL (5.00-40.00)
[2020-11-22 22:41] LABS: African American GFR (CKD) 134.7 (60.0-200.0); Albumin 4.3 g/dL (3.8-4.9); Albumin/Globulin Ratio 1.89 (1.60-3.17); Anion Gap 13.6 mmol/L (4.00-12.00); BUN/Creat Ratio 28.92 Ratio (12.00-20.00); Blood Urea Nitrogen 14.4 mg/dL (9.0-27.0); Calcium 9.3 mg/dL (8.7-10.3); Carbon Dioxide 22.4 mmol/L (21.6-31.8); Chol/HDL Ratio 3.34 Ratio; Globulin 2.3 g/dL (1.6-3.3); HDL Cholesterol 54.8 mg/dL (40.00-60.00); Non-African American GFR(CKD) 116.2 (60.0-200.0); Potassium 4.5 mmol/L (3.5-5.5); Total Bilirubin 0.2 mg/dL (0.30-1.20); Total Protein 6.6 g/dL (6.2-8.2)
== END | disposition home or self-care (01) ==
LOC: LABWHC1 10:51
PROVIDERS: ATTEND Family Medicine
DX: Z00.00 Encounter for general adult medical examination without abnormal findings (principal); Z86.39 Personal history of other endocrine, nutritional and metabolic disease
CPT/HCPCS: 36415; 80053; 80061; 82306; 82607

== ENCOUNTER → 2021-01-23 | Outpatient (CLI) | payer BC ==
--- NOTE | 2021-01-23 12:19 | CT ---
EXAMINATION TYPE: CT ChestAbdPelvis w con DATE OF EXAM: 01/23/2021 INDICATION: Follow up scan per patient. COMPARISON: 12/21/2019 CT DLP: 2396.5 mGycm CONTRAST: Performed with Oral Contrast and with IV Contrast, patient injected with 100 mL of Isovue 300. TECHNIQUE: Axial images at 5 mm thick sections. Reconstructed images in the coronal plane. Delayed images through the kidneys. FINDINGS: CT CHEST: Portion of the thyroid visualized is normal. No suspicious lung nodules or focal infiltrates are present. No enlarged mediastinal or hilar adenopathy is evident. The ascending aorta diameter at the level of the main pulmonary artery is 3.2 cm. The main pulmonary artery diameter at the bifurcation is 3.0r cm. CT ABDOMEN: There is a large anterior abdominal wall hernia with an opening of 11.3 cm. This contains contrast-filled loops of small bowel as well as noncontrast filled colon. No dilated loops of bowel or evidence suggest obstruction. Liver: Multiple cystlike areas are within the liver, present previously Spleen: Normal Pancreas: Normal Adrenal glands: The adrenal glands are normal. Gallbladder: Surgically absent Kidneys: No masses are evident. No hydronephrosis is present. No cysts are present. Delayed images were obtained through the kidneys, which remain unremarkable. Aorta: Normal Inferior vena cava: Normal. CT PELVIS: Loops of bowel within the abdomen and pelvis are normal. There are loops of bowel which are incom pletely distended or lack oral contrast limiting their evaluation. Appendix: Not visualized. No dilated tubular structure or inflammatory change is evident. Urinary bladder: Normal. Genitourinary structures: Uterus and ovaries are identified Osseous structures: No suspicious lytic or sclerotic lesions. IMPRESSIONS: 1. No suspicious changes to suggest metastatic disease. 2. Large anterior abdominal wall hernia without signs for bowel obstruction.
== END | disposition home or self-care (01) ==
LOC: RADCTMAIN 08:49
PROVIDERS: ATTEND Internal Medicine Hematology & Oncology
DX: K43.9 Ventral hernia without obstruction or gangrene (principal)
CPT/HCPCS: 71260; 74177; Q9967

== ENCOUNTER → 2021-03-23 | Outpatient (CLI) | payer BC ==
--- NOTE | 2021-03-24 10:45 | MM ---
Reason for exam: screening (asymptomatic). Last mammogram was performed 1 year ago. History: Patient is postmenopausal and history of other cancer. Family history of breast cancer in maternal grandmother at age 90. Ultrasound-guided core biopsy of the right breast. Took hormonal contraceptives beginning at age 14. Taking other hormone for 2 years. Physical Findings: A clinical breast exam by your physician is recommended on an annual basis and results should be correlated with mammographic findings. MG 3D Screening Mammo W/Cad Bilateral CC and MLO view(s) were taken. Prior study comparison: March 18, 2020, bilateral MG 3d screening mammo w/cad. March 13, 2019, bilateral MG 3d screening mammo w/cad. There are scattered fibroglandular densities. Focal asymmetry No significant changes when compared with prior studies. ASSESSMENT: Negative, BI-RAD 1 RECOMMENDATION: Routine screening mammogram of both breasts in 1 year.
== END | disposition home or self-care (01) ==
LOC: RADMAMWWP 12:57
PROVIDERS: ATTEND Internal Medicine Hematology & Oncology
DX: Z12.31 Encounter for screening mammogram for malignant neoplasm of breast (principal); Z78.0 Asymptomatic menopausal state; Z80.3 Family history of malignant neoplasm of breast
CPT/HCPCS: 77063; 77067

== ENCOUNTER → 2021-04-08 | Outpatient (CLI) | payer BC ==
--- NOTE | 2021-04-08 11:10 | BD ---
EXAMINATION TYPE: Axial Bone Density DATE OF EXAM: 04/08/2021 COMPARISON: 10.06.2018 CLINICAL HISTORY: 46 YR OLD FEMALE.......ICD-10 CODE: Z79.890 MENOPAUSAL Height: 65 Weight: 269 FRAX RISK QUESTIONS: Glucocorticoids (More than 3mos): YES (Ex: prednisone, prednisolone, methylprednisolone, dexamethasone, and hydrocortisone). Secondary Osteoporosis: YES 3. Menopause before 45: YES RISK FACTORS HISTORY OF: Postmenopausal woman: YES AT AGE 43 YRS OLD AREMADEX FOR OVARIAN TUMORS Hyperparathyroidism: NO Adrenal Insufficiency: NO MEDICATIONS: Prednisone or other steroids: ADVAIR, ...ASTHMA FOR MANY YRS Additional Medications: CALCIUM AND VIT D, CELEXA, AREMADIX, LUPRON AND MAGES, ASPIRIN, ZYRTEC , NSAI DS, PAIN MEDS Additional History: OVARIAN TUMORS THAT HAVE BEEN REMOVED, ARTHRITIS EXAM MEASUREMENTS: Bone mineral densitometry was performed using the [employer] System. Bone mineral density as measured about the Lumbar spine is: ----- L1-L4(G/cm2): 1.152 T Score Values are as follows: ----- L1: -0.2 ----- L2: -0.2 ----- L3: 0.2 ----- L4: -0.9 ----- L1-L4: -0.2 Bone mineral density has: Decreased -6.7% since study of: 10.06.2018 Bone mineral density about the R hip (g/cm2): 1.016 Bone mineral density about the L hip (g/cm2): 0.977 T Score values are as follows: -----R Neck: -0.4 -----L Neck: -0.5 -----R Total: 0.1 -----L Total: -0.2 Bone mineral density has: Decreased -2.3% since study of: 10.06.2018 FRAX%s: THERE IS A 4.1% CHANCE FOR A MAJOR OSTEOPOROTIC FX AND A 0.1% FOR HER HIPS.....PROBABILIT Y FOR FX IN 10 YRS TIME IMPRESSION: No evidence for osteoporosis or osteopenia. NOTE: T-SCORE=SD OF THE YOUNG ADULT MEAN.
== END | disposition home or self-care (01) ==
LOC: RADBDWWP 08:37
PROVIDERS: ATTEND Internal Medicine Hematology & Oncology
DX: Z78.0 Asymptomatic menopausal state (principal); Z79.890 Hormone replacement therapy
CPT/HCPCS: 77080

== ENCOUNTER 2021-09-15 08:51 | Day surgery (SDC) | payer BC ==
[2021-09-11 16:10] VITALS: BMI 42.9
[~2021-09-15 08:51] MED LIST changes: -AMPICILLIN 1,000 MG in SODIUM CHLORIDE 0.9% 50 ML IVPB ONE; -DEXAMETHASONE SOD PHOSPHATE 10 MG/ML 1 ML VIAL IV ONE; -GENTAMICIN 110 MG in SODIUM CHLORIDE 0.9% 100 ML IVPB ONE; +LIDOCAINE 1% (10MG/ML) FOR IV START INTRADERMA PRN; -LIDOCAINE 1% 20 ML VIAL (10MG/ML) FOR IV START INTRADERMA PRN; -MIDAZOLAM 2 MG/2 ML VIAL IV PRN; -ONDANSETRON 4 MG/2 ML VIAL IVP ONE; -fentaNYL (PF) 50 MCG/ML 2 ML AMP IV PRN
[2021-09-15] MEDS ORDERED: ONDANSETRON 4 MG/2 ML VIAL ONE (10:03)
[2021-09-15] MEDS ORDERED: ONDANSETRON 4 MG/2 ML VIAL IVP ONE (10:05)
[2021-09-15] MEDS ORDERED: SCOPOLAMINE 1 MG/72 HR PATCH TRANSDERM ONE (10:06)
[2021-09-15 10:08] VITALS: TEMP 97
[2021-09-15] MEDS ORDERED: PROPOFOL 10 MG/ML 20 ML VIAL IV ONE (10:14)
--- NOTE | 2021-09-15 10:18 | P.GSHP ---
History of Present Illness H&P Date: 09/15/21 Chief Complaint: Colon cancer screening 46-year-old female here today for colonoscopy. Patient with family history of colon cancer in her father. No bowel related complaints. Patient had a gynecologic malignancy and apparently had this genetic testing suggesting some mutation. Patient unsure of the details. No rectal bleeding or melena. 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 Superfisial blood clots in L leg History of Any Multi-Drug Resistant Organisms: None Reported Past Surgical History: Section, Cholecystectomy, Hysterectomy, Orthopedic Surgery, Tubal Ligation Additional Past Surgical History / Comment(s): LASIK. EXC IMPACTED WISDOM TEETH. RT WRIST GANGLION CYST EXC. RODRIGUEZ KNEE SURG, LT WAS A SCOPE. skin biopsies, fibromas removed from leg and arm, disseminated peritoneal leiomyomatosis (DPL) tumors removed(done at [facility]),temporary kidney stent now removed. Past Anesthesia/Blood Transfusion Reactions: Previous Problems w/ Anesthesia, Family History of Problems w/ Anesthesia, Motion Sickness, Postoperative Nausea & Vomiting (PONV) Additional Past Anesthesia/Blood Transfusion Reaction / Comment(s): Extreme N/V. Requests HOB needs to be elevated. Family hx. of severe N/V. Past Psychological History: Anxiety Smoking Status: Never smoker Past Alcohol Use History: None Reported Past Drug Use History: None Reported - Past Family History Father Family Medical History: Cancer Additional Family Medical History / Comment(s): colon,bladder,skin Mother Family Medical History: Cancer Additional Family Medical History / Comment(s): skin Medications and Allergies Home Medications Medication Instructions Recorded Confirmed Type Citalopram Hydrobromide [CeleXA] 20 mg PO QAM 10/07/16 09/15/21 History Cholecalciferol (Vitamin D3) 5,000 unit PO DAILY 01/26/18 09/15/21 History [Vitamin D3] Cyanocobalamin (Vitamin B-12) 1,000 mcg PO DAILY 01/26/18 09/15/21 History [Vitamin B12] Anastrozole [Arimidex] 1 mg PO DAILY 03/13/18 09/15/21 History Fluticasone Propion/Salmeterol 1 each IH DAILY PRN 07/21/18 09/15/21 History [Advair 500-50 Diskus] Multivitamins, Thera [Multivitamin 1 tab PO DAILY 07/21/18 09/15/21 History (formulary)] Ascorbic Acid [Vitamin C] 1,000 mg PO DAILY 02/09/19 09/15/21 History Calcium Carb/Vitamin D3/Vit K1 500 mg PO DAILY 02/09/19 09/15/21 History [Calcium-Vit D3-K1 650 mg Chew] Aspirin 81 mg PO DAILY 06/13/20 09/15/21 History Magnesium (Unk Dose) 400 mg PO DAILY 06/13/20 09/15/21 History Cetirizine HCl [Zyrtec] 10 mg PO DAILY 09/11/21 09/15/21 History Allergies Allergy/AdvReac Type Severity Reaction Status Date / Time adhesive Allergy very Verified 09/11/21 15:47 sensitive skin with all tapes-tears skin clarithromycin [From Biaxin] Allergy Anaphylaxis Verified 09/11/21 15:47 diphenhydramine Allergy Rash/Hives Verified 09/11/21 15:47 [From Tylenol PM] hydromorphone [From Dilaudid] Allergy Rash/Hives Verified 09/11/21 15:47 minocycline Allergy Rash/Hives Verified 09/11/21 15:47 Surgical - Exam Vital Signs Temp Pulse Resp BP Pulse Ox 98 F 69 20 103/54 95 09/15/21 09:41 09/15/21 09:41 09/15/21 09:41 09/15/21 09:41 09/15/21 09:41 Physical exam: General: Well-developed, well-nourished HEENT: Normocephalic, sclerae nonicteric Abdomen: Nontender, nondistended Extremities: No edema Neuro: Alert and oriented Assessment and Plan (1) Colon cancer screening Narrative/Plan: Will proceed with colonoscopy at this time. Current Visit: Yes Status: Acute Code(s): Z12.11 - ENCOUNTER FOR SCREENING FOR MALIGNANT NEOPLASM OF COLON SNOMED Code(s): 160897121
--- NOTE | 2021-09-15 10:36 | P.PCN ---
Date of Procedure: 09/15/21 Procedure(s) Performed: PREOPERATIVE DIAGNOSIS: Screening, family history of colon cancer in father POSTOPERATIVE DIAGNOSIS: Normal exam PROCEDURE: Colonoscopy ANESTHESIA: MAC SURGEON: Jarett Velazquez M.D. SPECIMENS: None ENDOSCOPIC PROCEDURE: The patient was placed on the endoscopy table in the left decubitus position. The Olympus colonoscope was inserted into the anus and passed under direct visualization to the base of the cecum. The appendiceal orifice was visualized. From that point the scope was slowly withdrawn inspecting all surfaces carefully. There were no neoplastic inflammatory or polypoid lesions throughout the cecum, ascending, transverse, descending, sigmoid and rectum. There was no visible diverticulosis noted. Digital rectal examination was normal. The patient was taken to the recovery room in stable condition per anesthesia guidelines. RECOMMENDATIONS: Resume diet. Repeat colonoscopy 5 years.
[2021-09-15 11:02] VITALS: BP 94/66; PULSE 62; RESP 15
== END 2021-09-15 11:21 | disposition home or self-care (01) ==
LOC: ORWHC2ENDO 08:51
PROVIDERS: ATTEND Surgery
DX: Z12.11 Encounter for screening for malignant neoplasm of colon (principal); Z80.0 Family history of malignant neoplasm of digestive organs; J45.909 Unspecified asthma, uncomplicated; G47.33 Obstructive sleep apnea (adult) (pediatric); Z88.3 Allergy status to other anti-infective agents; Z88.5 Allergy status to narcotic agent; Z91.09 Other allergy status, other than to drugs and biological substances; E66.9 Obesity, unspecified; Z68.41 Body mass index [BMI] 40.0-44.9, adult; F41.9 Anxiety disorder, unspecified; Z88.8 Allergy status to other drugs, medicaments and biological substances; Z79.82 Long term (current) use of aspirin; Z79.899 Other long term (current) drug therapy; Z79.811 Long term (current) use of aromatase inhibitors; Z80.52 Family history of malignant neoplasm of bladder; Z80.8 Family history of malignant neoplasm of other organs or systems; Z85.828 Personal history of other malignant neoplasm of skin; Z90.49 Acquired absence of other specified parts of digestive tract
CPT/HCPCS: 45378; J2405; J2704

== ENCOUNTER → 2021-10-05 | Outpatient (CLI) | payer BC ==
--- NOTE | 2021-10-05 10:19 | US ---
EXAMINATION TYPE: US thyroid st tissue head/neck DATE OF EXAM: 10/05/2021 COMPARISON: 09/29/2020 CLINICAL HISTORY: 46-year-old female E04.4 SINGLE THYROID NODULE, E66.8 OTHER OBESITY, E06.3. Thyroid nodule TECHNIQUE: Multiple sonographic images of the thyroid gland are obtained. FINDINGS: GLAND SIZE: Right Lobe: 5.6 x 1.2 x 1.4 cm Overall Parenchyma: homogenous Left Lobe: 4.7 x 1.6 x 1.4 cm Overall Parenchyma: homogeneous Isthmus Thickness: .3 cm NODULES RIGHT: # of nodules measured on right: 0 LEFT: # of nodules measured on left: 1 1. 1.3 X 1.3 x 1.5 cm, upper lateral, mixed cystic and solid, hypoechoic nodule, which is wider kristen n tall, with smooth margins, without echogenic foci. Prior size: 1.4 x 1.0 x 1.4 cm ISTHMUS: # of nodules measured in the isthmus: 0 Bilateral neck scanned, no evidence of lymphadenopathy. IMPRESSION: Borderline thyromegaly. Stable 1.5 cm TR3 mixed solid cystic nodule in the left lobe. FNA if it reach es 2.5 cm.
[2021-10-05 14:53] LABS: T4, Free (Free Thyroxine) 1.18 ng/dL (0.800-1.800)
== END | disposition home or self-care (01) ==
LOC: RADUSWWP 08:19
PROVIDERS: ATTEND Internal Medicine Endocrinology, Diabetes & Metabolism
DX: E04.1 Nontoxic single thyroid nodule (principal); E06.3 Autoimmune thyroiditis; E66.8 Other obesity
CPT/HCPCS: 76536; 84439; 84443

== ENCOUNTER → 2022-01-25 | Outpatient (CLI) | payer BC ==
--- NOTE | 2022-01-25 12:31 | CT ---
EXAMINATION TYPE: CT ChestAbdPelvis w con CT DLP: 2354.6 mGycm, Automated exposure control for dose reduction was used. DATE OF EXAM: 01/25/2022 11:07 AM COMPARISON: 01/23/2021. 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 Two-dimensional cor onal and sagittal reconstructions were obtained. Contrast used:100 mL of Isovue 300 with IV Contrast, Oral contrast used: without Oral Contrast Findings: CHEST: LUNGS/ PLEURA: The lung parenchyma appears unremarkable. AIRWAY: Patent and unremarkable. HEART: Size within normal limits. MEDIASTINUM: No gross evidence of adenopathy. VASCULATURE: No aortic aneurysm. MUSCULOSKELETAL: No acute osseous abnormalities. SOFT TISSUES/LYMPH NODES: Unremarkable. LOWER NECK: No significant findings. ABDOMEN: ABDOMEN LIVER: Scattered hepatic cysts unchanged from prior. Redemonstration of arterial phase hyperenhancing lesions in the right hepatic lobe measuring up to 2.6 cm and 1.5 cm (series 3 image 71 and image 58 respectively) which are more apparent on today's exam. GALLBLADDER AND BILE DUCTS: Surgically absent gallbladder. PANCREAS: Unremarkable. SPLEEN: Unremarkable. ADRENAL GLANDS: Unremarkable. KIDNEYS AND URETERS: No evidence of hydronephrosis or renal calculus. The ureters are unremarkable. PELVIS BLADDER: Unremarkable REPRODUCTIVE: Unremarkable. ABDOMEN & PELVIS STOMACH AND BOWEL: No evidence of bowel obstruction. PERITONEUM: No evidence of pneumoperitoneum or free fluid. Surgical clips are seen in the retroperito neum similar prior. No evidence of adenopathy. VASCULATURE: No evidence of aortic aneurysm. Atherosclerosis of the arterial vasculature. MUSCULOSKELETAL: No acute osseous abnormalities LYMPH NODES: No gross evidence for lymphadenopathy. SOFT TISSUE/ABDOMINAL WALL: Diastases of the anterior abdomen with large herniation containing loops of small and large bowel. IMPRESSION: 1. Indeterminate hepatic lesions redemonstrated. Further evaluation with MRI with IV contrast is rec ommended. 2. Other than findings in #1 No evidence of recurrence. 3. Large ventral wall hernia containing loops of small and large bowel.
== END | disposition home or self-care (01) ==
LOC: RADCTMAIN 09:29
PROVIDERS: ATTEND Internal Medicine Hematology & Oncology
DX: K44.9 Diaphragmatic hernia without obstruction or gangrene (principal); J84.81 Lymphangioleiomyomatosis
CPT/HCPCS: 71260; 74177; Q9967

== ENCOUNTER → 2022-03-24 | Outpatient (CLI) | payer BC ==
--- NOTE | 2022-03-24 09:10 | MM ---
Reason for Exam: Screening (asymptomatic). Last mammogram was performed 1 year(s) and 1 month(s) ago. Patient History: Menarche at age 12. First Full-Term at age 27. Left ovary removed at age 42. Right ovary removed at age 42. Hysterectomy at age 36. Postmenopausal. Patient has history of breast feeding. Other cancer under age 50. Hormonal Contraceptives, from age 14 until age 24. Ultrasound-Guided Core Biopsy on the Right side. Maternal grandmother had breast cancer, age 90. Risk Values: Kathleen 5 year model risk: 1.4%. NCI Lifetime model risk: 12.3%. Prior Study Comparison: 02/01/2017 Bilateral Screening Mammogram, [facility]. 02/15/2018 Bilateral Screening Mammogram, [facility]. 03/13/2019 Bilateral Screening Mammogram, [facility]. 03/18/2020 Bilateral Screening Mammogram, [facility]. 03/23/2021 Bilateral Screening Mammogram, [facility]. Tissue Density: The breast tissue is almost entirely fat. Findings: Analyzed By CAD. There is no suspicious group of microcalcifications or new suspicious mass in either breast. Overall Assessment: Negative, BI-RAD 1 Management: Screening Mammogram of both breasts in 1 year. A clinical breast exam by your physician is recommended on an annual basis and results should be correlated with mammographic findings. [facility] will attempt to contact patient to return for supplemental views and ultrasound if indicated. Electronically signed and approved by: Kevon Stinson DO
== END | disposition home or self-care (01) ==
LOC: RADMAMWWP 07:52
PROVIDERS: ATTEND Internal Medicine Hematology & Oncology
DX: Z12.31 Encounter for screening mammogram for malignant neoplasm of breast (principal); J84.81 Lymphangioleiomyomatosis; Z15.01 Genetic susceptibility to malignant neoplasm of breast; Z78.0 Asymptomatic menopausal state; Z80.3 Family history of malignant neoplasm of breast; Z90.721 Acquired absence of ovaries, unilateral
CPT/HCPCS: 77063; 77067

== ENCOUNTER → 2022-09-30 | Outpatient (CLI) | payer BC ==
--- NOTE | 2022-09-30 09:22 | US ---
EXAMINATION TYPE: US thyroid st tissue head/neck DATE OF EXAM: 09/30/2022 COMPARISON: Thyroid ultrasound 10/05/2021, 02/02/2019 CLINICAL INDICATION: Female, 47 years old with history of E04.1, E06.3; follow up thyroid nodule GLAND SIZE: Right Lobe: 5.5 x 1.2 x 1.5 cm Overall Parenchyma: homogenous Left Lobe: 3.9 x 1.4 x 1.6 cm Overall Parenchyma: homogeneous Isthmus Thickness: 0.3 cm NODULES RIGHT: # of nodules measured on right: 0 LEFT: # of nodules measured on left: 1 1. 1.4 X 1.0 x 1.2 cm, upper , mixed cystic and solid, hypoechoic nodule, which is wider than tall, with ill-defined margins, without echogenic foci. Prior size: 1.3 x 1.3 x 1.5 cm ISTHMUS: # of nodules measured in the isthmus: 0 Bilateral neck scanned, no evidence of lymphadenopathy. IMPRESSION: Stable 1.4 cm left thyroid lobe TR 3 nodule which has been previously biopsied in 2019. No new or enl arging thyroid nodules.
[2022-09-30 17:23] LABS: T4, Free (Free Thyroxine) 1.17 ng/dL (0.80-1.80)
== END | disposition home or self-care (01) ==
LOC: RADUSWWP 08:53
PROVIDERS: ATTEND Internal Medicine Endocrinology, Diabetes & Metabolism
DX: E04.1 Nontoxic single thyroid nodule (principal); E06.3 Autoimmune thyroiditis
CPT/HCPCS: 76536; 84439; 84443

== ENCOUNTER 2023-02-24 23:19 | Emergency (ER) | payer BC ==
[2023-02-25 00:55] LABS: Appearance,Urine Cloudy (Clear); Bacteria,Urine Rare /hpf; Bilirubin,Urine Negative (Negative); Blood,Urine Large (Negative); Budding Yeast,Urine Rare /hpf; Color,Urine Colorless; Glucose,Urine (UA) Negative (Negative); Ketones,Urine Negative (Negative); Leukocyte Esterase,Urine Large (Negative); Nitrite,Urine Negative (Negative); Protein,Urine Trace (Negative); RBC,Urine 94 /hpf (0-5); Specific Gravity,Urine 1.012 (1.001-1.035); Squamous Epithelial Cell,Urine 1 /hpf (0-4); Urobilinogen,Urine <2.0 mg/dL (<2.0); WBC,Urine 134 /hpf (0-5)
[2023-02-25] MEDS ORDERED: cefTRIAXone 1,000 MG VIAL (IM USE) IM STA (02:08)
--- NOTE | 2023-02-25 02:14 | ED ---
Female Urogenital HPI - General Source: patient Mode of arrival: ambulatory Limitations: no limitations <Forrest Naqvi - Last Filed: 02/25/23 04:44> - General Source: RN notes reviewed <Giuseppe Gonsalves - Last Filed: 02/25/23 14:42> - General Chief complaint: Urogenital Stated complaint: Blood in urine Time Seen by Provider: 02/24/23 23:44 - History of Present Illness Initial comments: 47-year-old female with a past medical history significant for hematuria and currently follows with of urology [facility] to the ED with a chief complaint of dysuria. Patient states for the past 4 days has had dysuria. Since onset, notes worsening in severity. States that she is now starting to have pain of the left flank. Also notes intermittent hematuria with this that seems worse than history of hematuria. Not had any recent urologic instrumentation. Denies fever or chills. No nausea or vomiting. (Forrest Naqvi) - Related Data Home Medications Medication Instructions Recorded Confirmed Citalopram Hydrobromide [CeleXA] 20 mg PO QAM 10/07/16 09/15/21 Cholecalciferol (Vitamin D3) 5,000 unit PO DAILY 01/26/18 09/15/21 [Vitamin D3] Cyanocobalamin (Vitamin B-12) 1,000 mcg PO DAILY 01/26/18 09/15/21 [Vitamin B12] Anastrozole [Arimidex] 1 mg PO DAILY 03/13/18 09/15/21 Fluticasone Propion/Salmeterol 1 each IH DAILY PRN 07/21/18 09/15/21 [Advair 500-50 Diskus] Multivitamins, Thera [Multivitamin 1 tab PO DAILY 07/21/18 09/15/21 (formulary)] Ascorbic Acid [Vitamin C] 1,000 mg PO DAILY 02/09/19 09/15/21 Calcium Carb/Vitamin D3/Vit K1 500 mg PO DAILY 02/09/19 09/15/21 [Calcium-Vit D3-K1 650 mg Chew] Aspirin 81 mg PO DAILY 06/13/20 09/15/21 Magnesium (Unk Dose) 400 mg PO DAILY 06/13/20 09/15/21 Cetirizine HCl [Zyrtec] 10 mg PO DAILY 09/11/21 09/15/21 Previous Rx's Medication Instructions Recorded Cephalexin [Keflex] 500 mg PO Q8HR #21 cap 02/25/23 Allergies Allergy/AdvReac Type Severity Reaction Status Date / Time adhesive Allergy very Verified 02/24/23 23:43 sensitive skin with all tapes-tears skin clarithromycin [From Biaxin] Allergy Anaphylaxis Verified 02/24/23 23:43 diphenhydramine Allergy Rash/Hives Verified 02/24/23 23:43 [From Tylenol PM] hydromorphone [From Dilaudid] Allergy Rash/Hives Verified 02/24/23 23:43 minocycline Allergy Rash/Hives Verified 02/24/23 23:43 Review of Systems ROS Other: All systems not noted in ROS Statement are negative. <Forrest Naqvi - Last Filed: 02/25/23 04:44> ROS Other: All systems not noted in ROS Statement are negative. <Giuseppe Gonsalves - Last Filed: 02/25/23 14:42> ROS Statement: Those systems with pertinent positive or pertinent negative responses have been documented in the HPI. Past Medical History Past Medical History: Asthma, Sleep Apnea/CPAP/BIPAP Additional Past Medical History / Comment(s): hung,USES CPAP,vertigo,premelanoma cancerous skin areas removed,skin bruises easily History of Any Multi-Drug Resistant Organisms: None Reported Past Surgical History: Section, Cholecystectomy, Hysterectomy, Orthopedic Surgery, Tubal Ligation Additional Past Surgical History / Comment(s): LASIK. EXC IMPACTED WISDOM TEETH. RT WRIST GANGLION CYST EXC. RODRIGUEZ KNEE SURG, LT WAS A SCOPE. skin bi opsies, fibromas removed from leg and arm, disseminated peritoneal leiomyomatosis (DPL) tumors removed(done at [facility]),temporary kidney stent now removed. Past Anesthesia/Blood Transfusion Reactions: Previous Problems w/ Anesthesia, Family History of Problems w/ Anesthesia, Motion Sickness, Postoperative Nausea & Vomiting (PONV) Additional Past Anesthesia/Blood Transfusion Reaction / Comment(s): "HARD TO wake up FROM ANESTHESIA- needs to be elevated hob in PACU" FAMILY HX OF SAME. Past Psychological History: Anxiety Smoking Status: Never smoker Past Alcohol Use History: None Reported Past Drug Use History: None Reported - Past Family History Father Family Medical History: Cancer Additional Family Medical History / Comment(s): colon,bladder,skin Mother Family Medical History: Cancer Additional Family Medical History / Comment(s): skin <Forrest Naqvi - Last Filed: 02/25/23 04:44> General Exam Limitations: no limitations General appearance: alert, in no apparent distress Eye exam: Present: normal appearance Neck exam: Present: normal inspection Respiratory exam: Present: normal lung sounds bilaterally Cardiovascular Exam: Present: regular rate, normal rhythm GI/Abdominal exam: Present: soft (No Abdominal tenderness to palpation. No rebound guarding or rigidity. Left CVA tenderness to percussion.) Neurological exam: Present: alert, oriented X3 Skin exam: Present: warm, dry <LatishaEvelin taylorForrest - Last Filed: 02/25/23 04:44> Course Vital Signs 02/24/23 02/25/23 23:40 08:29 Temperature 98.8 F 98.4 F Pulse Rate 84 80 Respiratory 17 18 Rate Blood Pressure 122/76 125/84 O2 Sat by Pulse 96 97 Oximetry Medical Decision Making - Lab Data Result diagrams: 02/25/23 02:37 02/25/23 02:37 <DonyaForrest - Last Filed: 02/25/23 04:44> - Lab Data Result diagrams: 02/25/23 02:37 02/25/23 02:37 <Giuseppe Gonsalves - Last Filed: 02/25/23 14:42> - Medical Decision Making Was pt. sent in by a medical professional or institution (ROGELIO Romero, IMPLEMENTATION MANAGER, urgent care, hospital, or fpc...) When possible be specific @ -No Did you speak to anyone other than the patient for history (EMS, parent, family, police, friend...)? What history was obtained from this source @ -No Did you review nursing and triage notes (agree or disagree)? Why? @ -I reviewed and agree with nursing and triage notes Were old charts reviewed (outside hosp., previous admission, EMS record, old EKG, old radiological studies, urgent care reports/EKG's, fpc records)? Report findings @ -No old charts were reviewed Differential Diagnosis (chest pain, altered mental status, abdominal pain women, abdominal pain men, vaginal bleeding, weakness, fever, dyspnea, syncope, headache, dizziness, GI bleed, back pain, seizure, CVA, palpatations, mental health, musculoskeletal)? @ -Differential Abdominal Pain Women: Appendicitis, Cholecystitis, diverticulosis, ischemic bowel, pancreatitis, hep atitis, UTI, gastroenteritis, AAA, incarcerated hernia, bowel obstruction, constipation, inflammatory bowel, hepatitis, peptic ulcer disease, splenic infarction, perforated viscus, vulvitis, ovarian torsion, PID, kidney stone, placenta abruption, this is not meant to be an all-inclusive list EKG interpreted by me (3pts min.). @ -None X-rays interpreted by me (1pt min.). @ -None done CT interpreted by me (1pt min.). @ -None done U/S interpreted by me (1pt. min.). @ -None done What testing was considered but not performed or refused? (CT, X-rays, U/S, labs)? Why? @ -None What meds were considered but not given or refused? Why? @ -None Did you discuss the management of the patient with other professionals (professionals i.e. , PA, IMPLEMENTATION MANAGER, lab, RT, psych nurse, social services analyst, radiology manager, teacher, commissary officer, patient case coordinator)? Give summary @ -No Was smoking cessation discussed for >3mins.? @ -No Was critical care preformed (if so, how long)? @ -No Were there social determinants of health that impacted care today? How? (Homelessness, low income, unemployed, alcoholism, drug addiction, transportation, low edu. Level, literacy, decrease access to med. care, nursing home, rehab)? @ -No Was there de-escalation of care discussed even if they declined (Discuss DNR or withdrawal of care, Hospice)? DNR status @ -No What co-morbidities impacted this encounter? (DM, HTN, Smoking, COPD, CAD, Cancer, CVA, ARF, Chemo, Hep., AIDS, mental health diagnosis, sleep apnea, mor bid obesity)? @ -None Was patient admitted / discharged? Hospital course, mention meds given and route, prescriptions, significant lab abnormalities, going to OR and other pertinent info. @ -Pending Laboratory studies reviewed. CBC unremarkable. Chemistry panel largely unremarkable. UA does show evidence of infection with large leukocytes esterase, 134 white blood cells, and white blood cell clumps. Also 94 rbc's. At this time computed tomography scan pending. Case signed out to attending physician Dr. Yoon ([facility]) CT interpreted by me showing evidence of inflammatory changes of bladder consis tent with cystitis. No other acute intra-abdominal process. Patient is discharged in stable condition on Keflex. Patient did receive Rocephin. Patient has evidence of urinary tract infection with no other acute findings. Diagnosis/symptom? @ -UTI Acute, or Chronic, or Acute on Chronic? @ -Acute Uncomplicated (without systemic symptoms) or Complicated (systemic symptoms)? @ -Uncomplicated Side effects of treatment? @ -none Exacerbation, Progression, or Severe Exacerbation @ -no Poses a threat to life or bodily function? @ -no (Giuseppe Gonsalves) - Lab Data Lab Results 02/24/23 02/25/23 02/25/23 Range/Units 23:52 02:37 02:37 WBC 8.1 (3.8-10.6) k/uL RBC 4.17 (3.80-5.40) m/uL Hgb 13.0 (11.4-16.0) gm/dL Hct 38.1 (34.0-46.0) % MCV 91.5 (80.0-100.0) fL MCH 31.2 (25.0-35.0) pg MCHC 34.1 (31.0-37.0) g/dL RDW 12.8 (11.5-15.5) % Plt Count 218 (150-450) k/uL MPV 8.2 Neutrophils % 70 % Lymphocytes % 23 % Monocytes % 4 % Eosinophils % 1 % Basophils % 1 % Neutrophils # 5.6 (1.3-7.7) k/uL Lymphocytes # 1.8 (1.0-4.8) k/uL Monocytes # 0.3 (0-1.0) k/uL Eosinophils # 0.1 (0-0.7) k/uL Basophils # 0.1 (0-0.2) k/uL Sodium 141 (137-145) mmol/L Potassium 4.4 (3.5-5.1) mmol/L Chloride 103 (98-107) mmol/L Carbon Dioxide 26 (22-30) mmol/L Anion Gap 12 mmol/L BUN 17 (7-17) mg/dL Creatinine 0.99 (0.52-1.04) mg/dL Est GFR (CKD-EPI)AfAm 78 (>60 ml/min/1.73 sqM) Est GFR (CKD-EPI)NonAf 68 (>60 ml/min/1.73 sqM) Glucose 100 H (74-99) mg/dL Calcium 9.4 (8.4-10.2) mg/dL Total Bilirubin 0.5 (0.2-1.3) mg/dL AST 31 (14-36) U/L ALT 18 (4-34) U/L Alkaline Phosphatase 136 H (38-126) U/L Total Protein 7.3 (6.3-8.2) g/dL Albumin 4.3 (3.5-5.0) g/dL Urine Color Colorless Urine Appearance Cloudy H (Clear) Urine pH 6.0 (5.0-8.0) Ur Specific [place] 1.012 (1.001-1.035) Urine Protein Trace H (Negative) Urine Glucose (UA) Negative (Negative) Urine Ketones Negative (Negative) Urine Blood Large H (Negative) Urine Nitrite Negative (Negative) Urine Bilirubin Negative (Negative) Urine Urobilinogen <2.0 (<2.0) mg/dL Ur Leukocyte Esterase Large H (Negative) Urine RBC 94 H (0-5) /hpf Urine WBC 134 H (0-5) /hpf Urine WBC Clumps Rare H (None) /hpf Ur Squamous Epith Cells 1 (0-4) /hpf Urine Bacteria Rare H (None) /hpf Urine Yeast (Budding) Rare H (None) /hpf Disposition <Forrest Naqvi - Last Filed: 02/25/23 04:44> Is patient prescribed a controlled substance at d/c from ED?: No Time of Disposition: 08:23 <Giuseppe Gonsalves - Last Filed: 02/25/23 14:42> Clinical Impression: UTI (urinary tract infection) Disposition: HOME SELF-CARE Condition: Stable Instructions (If sedation given, give patient instructions): Urinary Tract Infection in Women (ED) Additional Instructions: Please return to the Emergency Department if symptoms worsen or any other concerns. Prescriptions: Cephalexin [Keflex] 500 mg PO Q8HR #21 cap Referrals: Kimberly Valladares MD [Primary Care Provider] - 1-2 days
[2023-02-25 02:58] LABS: ALT 18 U/L (4-34); AST 31 U/L (14-36); African American GFR (CKD) 78 (>60 ml/min/1.73 sqM); Albumin 4.3 g/dL (3.5-5.0); Alkaline Phosphatase 136 U/L (38-126); Anion Gap 12 mmol/L; Blood Urea Nitrogen 17 mg/dL (7-17); Calcium 9.4 mg/dL (8.4-10.2); Carbon Dioxide 26 mmol/L (22-30); Chloride 103 mmol/L (98-107); Glucose 100 mg/dL (74-99); Non-African American GFR(CKD) 68 (>60 ml/min/1.73 sqM); Potassium 4.4 mmol/L (3.5-5.1); Sodium 141 mmol/L (137-145); Total Bilirubin 0.5 mg/dL (0.2-1.3); Total Protein 7.3 g/dL (6.3-8.2)
[2023-02-25 03:06] LABS: Basophils # (A) 0.1 k/uL (0-0.2); Basophils % (A) 1 %; Eosinophils # (A) 0.1 k/uL (0-0.7); Eosinophils % (A) 1 %; HCT 38.1 % (34.0-46.0); Lymphocytes # (A) 1.8 k/uL (1.0-4.8); Lymphocytes % (A) 23 %; MCH 31.2 pg (25.0-35.0); MCHC 34.1 g/dL (31.0-37.0); MCV 91.5 fL (80.0-100.0); Mean Platelet Volume 8.2; Monocytes # (A) 0.3 k/uL (0-1.0); Monocytes % (A) 4 %; Neutrophils # (A) 5.6 k/uL (1.3-7.7); Neutrophils % (A) 70 %; Platelet Count 218 k/uL (150-450); RBC 4.17 m/uL (3.80-5.40); RDW 12.8 % (11.5-15.5); WBC 8.1 k/uL (3.8-10.6)
--- NOTE | 2023-02-25 08:20 | CT ---
Bee Barros EXAMINATION TYPE: CT abdomen pelvis wo con DATE OF EXAM: 02/25/2023 HISTORY: Pt arrives in [facility] today for blood in urine/clots. pt also has burning sensation. H/O C-sectio n, cholecystectomy, tubal ligation, hysterectomy, disseminated peritoneal leiomyomatosis (DPL) tumors removed, temporary kidney stent now removed. CT DLP: 1556 mGycm. Automated Exposure Control for Dose Reduction was Utilized. TECHNIQUE: CT scan of the abdomen and pelvis is performed without oral or IV contrast. COMPARISON: Prior CT January 25, 2022 FINDINGS: Within the limitations of a non-contrast study, the following observations are made. LUNG BASES: No significant abnormality is appreciated. LIVER/GB: Cholecystectomy clips are redemonstrated. Approximately 5-6 nonspecific small round hypoden se lesions throughout the liver are redemonstrated and stable. PANCREAS: No significant abnormality is seen. SPLEEN: No significant abnormality is seen. ADRENALS: No significant abnormality is seen. KIDNEYS: No renal stones or hydronephrosis is seen bilaterally. No intraluminal calculus within poorl y distended bladder. Bladder wall margins are slightly irregular with mild adjacent fat stranding BOWEL: Low-lying cecum into the pelvis. No abnormal small or large bowel dilatation. GENITAL ORGANS: Uterus is surgically absent or atrophic in appearance. LYMPH NODES: No greater than 1cm abdominal or pelvic lymph nodes are appreciated. OSSEOUS STRUCTURES: Stable slight grade 1 retrolisthesis L4 on L5. OTHER: Persistent wide neck large ventral wall hernia containing fat and bowel loops occupying signif icant portion of the upper abdominal anterior wall. IMPRESSION: Poorly distended bladder with irregular wall and mild surrounding fat stranding raises co ncerns for acute bladder infection. No renal calculi or hydronephrosis is seen bilaterally.
[2023-02-25 08:42] VITALS: BP 125/84; PULSE 80; RESP 18; TEMP 98.4
== END 2023-02-25 08:31 | disposition home or self-care (01) ==
LOC: EC 23:19
DX: N39.0 Urinary tract infection, site not specified (principal); B96.20 Unspecified Escherichia coli [E. coli] as the cause of diseases classified elsewhere; J45.909 Unspecified asthma, uncomplicated; F41.9 Anxiety disorder, unspecified; Z79.51 Long term (current) use of inhaled steroids; Z79.899 Other long term (current) drug therapy; Z88.1 Allergy status to other antibiotic agents; Z88.5 Allergy status to narcotic agent; Z88.8 Allergy status to other drugs, medicaments and biological substances; Z91.09 Other allergy status, other than to drugs and biological substances
CPT/HCPCS: 36415; 80053; 85025; 81001; 87086; 87077; 87186; 74176; 99284; 96372; J0696

== ENCOUNTER → 2023-04-11 | Outpatient (CLI) | payer BC ==
--- NOTE | 2023-04-11 17:38 | BD ---
EXAMINATION TYPE: Axial Bone Density DATE OF EXAM: 04/11/2023 CLINICAL HISTORY: 48 years old Female. ICD-10 CODE: Z78.0 POST MENOPAUSAL Height: 65 in Weight: 280 lbs FRAX RISK QUESTIONS: Secondary Osteoporosis: 3. Menopause before 45: yes partial hysterectomy age 31 total age 43 RISK FACTORS EXAM MEASUREMENTS: Bone mineral densitometry was performed using the [employer] System. Bone mineral density as measured about the Lumbar spine is: ----- L1-L4(G/cm2): 1.115 T Score Values are as follows: ----- L1: -0.7 ----- L2: -0.4 ----- L3: 0.1 ----- L4: -1.3 ----- L1-L4: -0.5 Z Score Values are as follows: ----- L1: -1.6 ----- L2: -1.2 ----- L3: -0.8 ----- L4: -2.1 ----- L1-L4: -1.4 Bone mineral density has: Decreased -3.2% since study of: 04/08/2021 Bone mineral density about the R hip (g/cm2): 0.905 Bone mineral density about the L hip (g/cm2): 0.950 T Score values are as follows: -----R Neck: -1.0 -----L Neck: -0.8 -----R Total: -0.8 -----L Total: -0.5 Z Score values are as follows: -----R Neck: -1.1 -----L Neck: -0.8 -----R Total: -1.2 -----L Total: -0.9 Bone mineral density has: Decreased -7.0% since study of: 04/08/2021 FRAX%s: The graph provided illustrates a 3.1% chance for a major osteoporotic fx and a 0.1% chance fo r the hips probability for fx in 10 years time. IMPRESSION: Normal (Values between +1 and -1 indicate normal bone mass). Note that measurements are bordering on osteopenia. Consider repeating this study in 5 years or sooner if there is some new clinical indicati on. NOTE: T-SCORE=SD OF THE YOUNG ADULT MEAN.
--- NOTE | 2023-04-12 22:09 | MM ---
Reason for Exam: Screening (asymptomatic). Last screening mammogram was performed 12 month(s) ago. Patient History: Menarche at age 12. First Full-Term at age 27. Left ovary removed at age 42. Right ovary removed at age 42. Hysterectomy at age 36. Postmenopausal. Patient has history of breast feeding. Other cancer under age 50. Hormonal Contraceptives, from age 14 until age 24. Ultrasound-Guided Core Biopsy on the Right side. Maternal grandmother had breast cancer, age 90. Risk Values: Kathleen 5 year model risk: 1.3%. NCI Lifetime model risk: 11.8%. Prior Study Comparison: 03/18/2020 Bilateral Screening Mammogram, [facility]. 03/23/2021 Bilateral Screening Mammogram, [facility]. 03/24/2022 Bilateral MG 3D screening mammo w/cad, [facility]. Tissue Density: There are scattered fibroglandular densities. Findings: Analyzed By CAD. Microclip right breast with chronic nodularity There is no suspicious group of microcalcifications or new suspicious mass in either breast. Overall Assessment: Benign, BI-RAD 2 Management: Screening Mammogram of both breasts in 1 year. . Patient should continue monthly self-breast exams. A clinical breast exam by your physician is recommended on an annual basis. This exam should not preclude additional follow-up of suspicious palpable abnormalities. Note on Kathleen scores and lifetime risk: 1. A Kathleen score greater than 3% is considered moderate risk. If this is the case, consider specialist referral to assess eligibility for a risk reducing agent. 2. If overall lifetime risk for the development of breast cancer is 20% or higher, the patient may qualify for future screening with alternating mammogram and breast MRI. Electronically signed and approved by: Tomer Paz M.D. Radiologist
== END | disposition home or self-care (01) ==
LOC: RADMAMWWP 08:53
PROVIDERS: ATTEND Internal Medicine Hematology & Oncology
DX: Z12.31 Encounter for screening mammogram for malignant neoplasm of breast (principal); M85.851 Other specified disorders of bone density and structure, right thigh; Z78.0 Asymptomatic menopausal state; Z80.3 Family history of malignant neoplasm of breast
CPT/HCPCS: 77063; 77067; 77080